=== PATIENT | female | born 1955 | race Caucasian/White ===

== ENCOUNTER → 2017-01-22 | Outpatient (CLI) | payer OTHER ==
[~2017-01-22] MED LIST: ACHD5005 PO; ALBU2.5V4 IH; ALBU8.5H2 IH; ASPI-892 PO; ASPI-983 PO; Amlodipine Besylate PO; CHOL4PAC2 PO; ESTR1PAT31 TD; ESTR1TAB24 PO; ESTR42.52 VG; HCTZ12.5T PO; HYDR-3454 PO; HYDR-3583 PO; HYDR25CA PO; IBP600T1 PO; LOVA20TA2 PO; METO-333 PO; METO25TA6 PO; NAPR-243 PO; NAPR220C11 PO; POTA10CA43 PO; POTA20TA15 PO; RANI150C11 PO; RT-ALBUINH IH; TIOT18CA2 IH; TIOT4MIS2 IH
--- NOTE | 2017-01-22 13:51 | Diagnostic Imaging Report ---
PROCEDURE: Lung cancer screening CT chest without contrast. TECHNIQUE: Multiple contiguous axial images were obtained through the chest without the use of intravenous contrast. This is performed with a low-dose protocol. INDICATION: Currently asymptomatic patient with 46 pack years history of smoking. Comparison: None. Findings: There is an irregular mixed density nodule measuring 1 cm seen along the lateral aspect of the right major fissure, axial image 23. Etiology is uncertain but the morphology of this lesion is in favor of scarring. There is a 5 mm linear nodule along the lateral aspect of the left lower lobe, axial image 38. This is also favored to be a scar. There is no significant consolidation or other nodules seen. The mediastinum demonstrate no mass or significantly enlarged lymph nodes. The heart size is normal. The thoracic aorta is ectatic. No mediastinal lymphadenopathy. No axillary lymphadenopathy. Sections of the upper abdomen demonstrate diffuse fatty infiltration in the liver. The osseous structures appear grossly unremarkable. IMPRESSION: 1. Mixed density 1 cm nodule along the lateral aspect of the right major fissure at the level of the juan j and lateral left lung base 5 mm nodule are favored to be related to scarring. Followup study in 3 months is recommended to reevaluate. 2. Hepatic steatosis. Lung Rads Category 3. Likely benign. Recommendations: 3 month followup low-dose CT scan. Dictated by: Dictated on workstation # [id number]
== END ==
LOC: RAD 13:13
PROVIDERS: ATTEND Family Medicine
DX: Z12.2 Encounter for screening for malignant neoplasm of respiratory organs (principal); F17.210 Nicotine dependence, cigarettes, uncomplicated

== ENCOUNTER → 2017-05-05 | Outpatient (CLI) | payer MEDICAID ==
[2017-05-05 10:44] LABS: BASOPHILS # (AUTO) 0.1 10^3/uL (0.0-0.1); BASOPHILS % (AUTO) 1 % (0-10); EOSINOPHILS # (AUTO) 0.2 10^3/uL (0.0-0.3); EOSINOPHILS % (AUTO) 2 % (0-10); LYMPHOCYTES # (AUTO) 1.8 X 10^3 (1.0-4.0); LYMPHOCYTES % (AUTO) 28 % (12-44); MEAN CORPUSCULAR HEMOGLOBIN 33 PG (25-34); MEAN CORPUSCULAR HGB CONC 34 G/DL (32-36); MEAN CORPUSCULAR VOLUME 97 FL (80-99); MEAN PLATELET VOLUME 10.4 FL (7.4-10.4); MONOCYTES # (AUTO) 0.5 X 10^3 (0.0-1.0); MONOCYTES % (AUTO) 8 % (0-12); NEUTROPHILS # (AUTO) 3.9 X 10^3 (1.8-7.8); NEUTROPHILS % (AUTO) 61 % (42-75); PLATELET COUNT 196 10^3/uL (130-400); RED BLOOD COUNT 4.52 10^6/uL (4.35-5.85); RED CELL DISTRIBUTION WIDTH 12.7 % (10.0-14.5); WHITE BLOOD COUNT 6.4 10^3/uL (4.3-11.0)
[2017-05-05 11:15] LABS: ALANINE AMINOTRANSFERASE 52 U/L (0-55); ALBUMIN 4.1 GM/DL (3.2-4.5); ANION GAP 9 MMOL/L (5-14); ASPARTATE AMINO TRANSFERASE 38 U/L (5-34); BILIRUBIN,TOTAL 0.5 MG/DL (0.1-1.0); BLOOD UREA NITROGEN 8 MG/DL (7-18); BUN/CREATININE RATIO 12; CALCIUM 8.7 MG/DL (8.5-10.1); CARBON DIOXIDE 24 MMOL/L (21-32); CHLORIDE 108 MMOL/L (98-107); CHOLESTEROL 164 MG/DL (< 200); CREATININE SERUM 0.65 MG/DL (0.60-1.30); DIRECT LDL 101 MG/DL (1-129); GFR ESTIMATED > 60; GLUCOSE 116 MG/DL (70-105); MAGNESIUM 2.2 MG/DL (1.8-2.4); POTASSIUM 4.2 MMOL/L (3.6-5.0); SODIUM 141 MMOL/L (135-145); TOTAL PROTEIN 6.8 GM/DL (6.4-8.2); TRIGLYCERIDES 133 MG/DL (<150); VLDL CHOLESTEROL 27 MG/DL (5-40)
[2017-05-05 11:35] LABS: THYROID STIMULATING HORMONE 1.19 UIU/ML (0.35-4.94)
== END ==
LOC: LAB 10:23
PROVIDERS: ATTEND Internal Medicine Cardiovascular Disease
DX: J43.8 Other emphysema (principal); I10 Essential (primary) hypertension; E78.4 Other hyperlipidemia; Z72.0 Tobacco use
CPT/HCPCS: 36415; 80053; 80061; 83735; 84443; 85025

== ENCOUNTER → 2017-06-02 | Outpatient (CLI) | payer MEDICAID ==
--- NOTE | 2017-06-02 14:56 | Diagnostic Imaging Report ---
PROCEDURE: CT chest without contrast. TECHNIQUE: Multiple contiguous axial images were obtained through the chest without the use of intravenous contrast. INDICATION: Followup nodule. COMPARISON: 01/22/2017. FINDINGS: Mixed density nodule along the lateral aspect of the right lung has completely resolved. There is also resolution of the elongated nodular density along the lateral aspect of the left lung base. This is suggestive of resolved atelectasis or pneumonitis. At this point, there is no significant consolidation, mass or suspicious nodule seen. No pleural or pericardial effusion. 1 cm pretracheal lymph node is seen. No significantly enlarged axillary lymph nodes are noted. There is suggestion of diffuse fatty infiltration of the liver. Osseous structures demonstrate mild degenerative changes. IMPRESSION: The previously seen nodular densities in the lateral right perihilar lesion and left lung base are resolved suggestive of benign etiology. No suspicious nodule or mass is seen. Annual screening low-dose CT chest is recommended. 2A - Benign appearance or behavior. Solid nodule(s): <6mm OR new <4mm. Continue annual screening with LDCT in 12 months. Dictated by: Dictated on workstation # [id number]
== END ==
LOC: RAD 13:44
PROVIDERS: ATTEND Family Medicine
DX: Z72.0 Tobacco use (principal)
CPT/HCPCS: 71250

== ENCOUNTER → 2018-05-14 | Outpatient (CLI) | payer MEDICARE, MEDICAID ==
--- NOTE | 2018-05-14 14:10 | Diagnostic Imaging Report ---
INDICATION: History of smoking. COMPARISON: 06/02/2017. TECHNIQUE: Routine noncontrast low dose CT of the chest was performed for screening purposes. FINDINGS: No suspicious pulmonary nodules or masses are identified. There is no focal consolidation, pleural effusion, nor pneumothorax. Evaluation of cardiomediastinal structures demonstrates normal heart size. There is mild calcified aortic and coronary atherosclerosis. No pathologically enlarged or morphologically abnormal adenopathy is seen within the mediastinum, parvin, nor axilla. Lung windows show no acute abnormalities. No lytic or blastic bony lesions are seen. There is mild multilevel degenerative change throughout the thoracic spine. Included portions of the upper abdomen show a hypodense appearance of hepatic parenchyma consistent with underlying hepatic steatosis. IMPRESSION: 1. No suspicious pulmonary nodules or masses. Continued followup with annual low-dose CT chest is recommended. 2. Mild calcified aortic and coronary atherosclerosis. 3. Hepatic steatosis. LUNG RADS CATEGORY: 1. MODIFIERS: None. OTHER SIGNIFICANT FINDINGS: As described above. Dictated by: Dictated on workstation # [id number]
== END ==
LOC: RAD 13:10
PROVIDERS: ATTEND Nurse Practitioner Family
DX: J44.9 Chronic obstructive pulmonary disease, unspecified (principal); I70.0 Atherosclerosis of aorta; I25.10 Atherosclerotic heart disease of native coronary artery without angina pectoris; F17.210 Nicotine dependence, cigarettes, uncomplicated; K76.0 Fatty (change of) liver, not elsewhere classified

== ENCOUNTER → 2018-09-29 | Outpatient (CLI) | payer MEDICARE, MEDICAID ==
[~2018-09-29] MED LIST changes: -ACHD5005 PO; -ALBU2.5V4 IH; -ALBU8.5H2 IH; -ASPI-892 PO; -ASPI-983 PO; -Amlodipine Besylate PO; +CATHETER FLUSH 10 ML SYR IV PRN; -CHOL4PAC2 PO; -ESTR1PAT31 TD; -ESTR1TAB24 PO; -ESTR42.52 VG; -HCTZ12.5T PO; -HYDR-3454 PO; -HYDR-3583 PO; -HYDR25CA PO; -IBP600T1 PO; -LOVA20TA2 PO; -METO-333 PO; -METO25TA6 PO; -NAPR-243 PO; -NAPR220C11 PO; -POTA10CA43 PO; -POTA20TA15 PO; -RANI150C11 PO; +REGADENOSON 0.4 MG/5 ML SYR (LEXISCAN) IV ONE; -RT-ALBUINH IH; -TIOT18CA2 IH; -TIOT4MIS2 IH
[2018-09-29 10:58] LABS: ALANINE AMINOTRANSFERASE 46 U/L (0-55); ALBUMIN 4.3 GM/DL (3.2-4.5); ALKALINE PHOSPHATASE 79 U/L (40-136); BILIRUBIN,TOTAL 0.4 MG/DL (0.1-1.0); BUN/CREATININE RATIO 11; CALCIUM 9.3 MG/DL (8.5-10.1); CARBON DIOXIDE 23 MMOL/L (21-32); CHLORIDE 104 MMOL/L (98-107); CHOLESTEROL 164 MG/DL (< 200); CREATININE SERUM 0.72 MG/DL (0.60-1.30); GFR ESTIMATED > 60; GLUCOSE 106 MG/DL (70-105); HDL CHOLESTEROL 47 MG/DL (40-60); POTASSIUM 4.3 MMOL/L (3.6-5.0); SODIUM 140 MMOL/L (135-145); TOTAL PROTEIN 6.8 GM/DL (6.4-8.2); TRIGLYCERIDES 144 MG/DL (<150); VLDL CHOLESTEROL 29 MG/DL (5-40)
[2018-09-29 12:32] VITALS: BP 165/77
[2018-09-29 12:34] VITALS: BP 155/79
== END ==
LOC: CARD 10:23
PROVIDERS: ATTEND Nurse Practitioner Family
DX: I10 Essential (primary) hypertension (principal); R06.09 Other forms of dyspnea; E78.5 Hyperlipidemia, unspecified; R07.89 Other chest pain
CPT/HCPCS: 36415; 78452; 80053; 80061; 93017

== ENCOUNTER → 2019-02-05 | Outpatient (CLI) | payer MEDICARE, MEDICAID ==
[~2019-02-05] MED LIST changes: +ACHD5005 PO; +ALBU2.5V4 IH; +ALBU8.5H2 IH; +ASPI-892 PO; +ASPI-983 PO; +Amlodipine Besylate PO; -CATHETER FLUSH 10 ML SYR IV PRN; +CHOL4PAC2 PO; +ESTR1PAT31 TD; +ESTR1TAB24 PO; +ESTR42.52 VG; +HCTZ12.5T PO; +HYDR-3454 PO; +HYDR-3583 PO; +HYDR25CA PO; +IBP600T1 PO; +LOVA20TA2 PO; +METO-333 PO; +METO25TA6 PO; +NAPR-243 PO; +NAPR220C11 PO; +POTA10CA43 PO; +POTA20TA15 PO; +RANI150C11 PO; -REGADENOSON 0.4 MG/5 ML SYR (LEXISCAN) IV ONE; +RT-ALBUINH IH; +TIOT18CA2 IH; +TIOT4MIS2 IH
== END ==
LOC: RAD 12:28
PROVIDERS: ATTEND Nurse Practitioner Primary Care
DX: Z12.31 Encounter for screening mammogram for malignant neoplasm of breast (principal)
CPT/HCPCS: 77067

== ENCOUNTER 2019-03-03 10:40 | Outpatient (CLI) | payer MEDICARE, MEDICAID ==
[~2019-03-03] VITALS: Ht 160 cm; Wt 69.6 kg
[~2019-03-03 10:40] MED LIST changes: +FLUT1AER IH; +LISI-552 PO; +LOVA40TA2 PO
== END 2019-03-03 11:11 | disposition home or self-care (01) ==
LOC: PREOP 10:40
PROVIDERS: ATTEND Surgery
DX: Z01.818 Encounter for other preprocedural examination (principal)

== ENCOUNTER 2019-03-09 08:31 | Day surgery (SDC) | payer MEDICARE, MEDICAID ==
[~2019-03-09] VITALS: Ht 160 cm; Wt 69.6 kg
[2019-03-09] VITALS (7 sets, daily range): BP systolic 126–175; BP diastolic 64–88
[2019-03-09] MEDS ORDERED: LACTATED RINGERS 1,000 ML IV ONE (08:33)
[2019-03-09] MEDS ORDERED: LACTATED RINGERS 1,000 ML IV STA (08:34)
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
--- OUTSIDE RECORDS SUMMARY | 2019-03-09 08:37 | XMS REPORT ---
Author Author FELISHA ROGERS Organization [employer] Address Unknown Phone Unavailable Care Team Providers Care Psychology Clinician Name Role Phone FELISHA ROGERS CP Unavailable Allergies No Known Allergies Problems Problem Type Condition Code Onset Dates Condition Status Problem Low back pain M54.5 Active Problem Chronic obstructive pulmonary disease, unspecified COPD type J44.9 Active Problem Prediabetes R73.09 Active Problem Hepatic steatosis K76.0 Active Problem Other chest pain R07.89 Active Problem Essential hypertension I10 Active Problem Pure hypercholesterolemia E78.0 Active Medications Medication Code System Code Instructions Start Date End Date Status Dosage Lovastatin [facility] [address]-38 20 MG Orally Once a day 2 tablets with a meal Proventil HFA [facility] [address]-05 108 (90 Base) MCG/ACT Inhalation every 4 hrs 2 puffs as needed Metoprolol Tartrate [facility] [address]-43 25 MG Orally Twice a day 1 tablet Aspir-81 [facility] [address]-89 81 MG Orally Once a day at HS 1 tablet Albuterol Sulfate [facility] [address]-76 (2.5 MG/3ML) 0.083% Inhalation every 4-6 hours as needed 3 ml Spiriva Respimat [facility] [address]-53 2.5 MCG/ACT Inhalation Once a day 2 puffs Results No Known Results Summary Purpose [employer] Submission
--- OUTSIDE RECORDS SUMMARY | 2019-03-09 08:37 | XMS REPORT ---
Author Author KYEMACEY CARLSON [facility] Address [address] [place] [address] Care Team Providers Care Casing Grader Name Role Phone MACEY FISHMAN Unavailable PROBLEMS Type Condition ICD9-CM Code JMN91-AD Code Onset Dates Condition Status SNOMED Code Problem Other chest pain R07.89 Active 84837811 Problem Essential hypertension I10 Active 95740016 Problem Hepatic steatosis K76.0 Active 055037345 Problem Bilateral carotid artery stenosis I65.23 Active 74498754 Problem Lung nodule R91.1 Active 378039514 Problem Tobacco use Z72.0 Active 078057244 Problem Pure hypercholesterolemia E78.0 Active 071418719 Problem Chronic obstructive pulmonary disease, unspecified COPD type J44.9 Active 47172457 Problem Prediabetes R73.09 Active 263600533 Problem Low back pain M54.5 Active 013685866 ALLERGIES Substance Reaction Event Type Date Status Prozac Unknown Drug Allergy Jul, Active Hydrochlorothiazide Syncope/collapse/weakness/hypkalemia Drug Allergy Jul, Active Codeine Unknown Drug Allergy Jul, Active ENCOUNTERS Encounter Location Date Diagnosis [place] [id number] [address] Jul, Bilateral carotid artery stenosis I65.23 ; Essential hypertension I10 and Tobacco use Z72.0 [facility] [id number] [address] May, Lung nodule R91.1 [facility] [id number] [place] [address] Apr, Tobacco use Z72.0 [facility] [address] [address] Jan, Tobacco use Z72.0 [place] [address], [place] [address] 07 Jan, 2017 Colon cancer screening Z12.11 [facility] [id number] [place] [address] 05 Jan, 2017 Chronic obstructive pulmonary disease, unspecified COPD type J44.9 [facility] [id number] [place] [address] 02 Jan, 2017 Chronic obstructive pulmonary disease, unspecified COPD type J44.9 ; Prediabetes R73.09 ; Pure hypercholesterolemia E78.0 ; Tobacco use Z72.0 ; Colon cancer screening Z12.11 ; Essential hypertension I10 and Encounter for immunization Z23 [facility] [id number] [place] [address] December, [facility] [id number] [place] [address] Mar, [facility] [id number] [place] [address] Feb, Gastroesophageal reflux disease, esophagitis presence not specified K21.9 [facility] [id number] [place] [address] Feb, [facility] [id number] [place] [address] Feb, [facility] [id number] [place] [address] Feb, [facility] [id number] [place] [address] Jan, Low back pain M54.5 [facility] [id number] [place] [address] Jan, Prediabetes R73.09 ; Essential hypertension I10 and Low vitamin D level E55.9 [facility] [id number] [place] [address] Jan, [facility] [id number] [place] [address] Jan, Low back pain M54.5 [facility] [id number] [place] [address] December, Essential hypertension I10 ; Chronic obstructive pulmonary disease, unspecified COPD type J44.9 ; Urge incontinence N39.41 ; Hepatic steatosis K76.0 ; Low back pain M54.5 ; Pure hypercholesterolemia E78.0 and Stool incontinence R15.9 [facility] [id number] [place] [address] December, Low back pain M54.5 [facility] [id number] [place] [address] December, Low back pain M54.5 [facility] [id number] [place] [address] December, Low back pain M54.5 [facility] [id number] [place] [address] December, Low back pain M54.5 [facility] [id number] [place] [address] December, Low back pain M54.5 [facility] [id number] [place] [address] Nov, Low back pain M54.5 [facility] [id number] [place] [address] Nov, Low back pain M54.5 [facility] [id number] [place] [address] Nov, [facility] [id number] [place] [address] Nov, Low back pain M54.5 [facility] [id number] [place] [address] Nov, [facility] [id number] [place] [address] Nov, Low back pain M54.5 [facility] [id number] [place] [address] Nov, Low back pain M54.5 [facility] [id number] [place] [address] Nov, [facility] [id number] [place] [address] Oct, [facility] [id number] [place] [address] Oct, Low back pain M54.5 [facility] [id number] [place] [address] Oct, Low vitamin D level E55.9 [facility] [id number] [place] [address] Oct, Low back pain M54.5 [facility] [id number] [place] [address] Oct, [facility] [id number] [place] [address] Oct, Left leg weakness M62.81 ; Memory loss R41.3 ; Other abnormalities of gait and mobility R26.89 and Vision loss H54.7 [facility] [id number] [place] [address] Oct, [facility] [id number] [place] [address] Oct, Elevated ALT measurement R74.0 [facility] [id number] [place] [address] Oct, Low back pain M54.5 [facility] [id number] [place] [address] Oct, Essential hypertension I10 [facility] [address] [address] 14 Oct, 2015 [facility] [id number] [place] [address] 14 Oct, 2015 Essential hypertension I10 [facility] [id number] [place] [address] 08 Oct, 2015 Low back pain M54.5 ; Muscle cramping R25.2 ; Chronic obstructive pulmonary disease, unspecified COPD type J44.9 and Left hip pain M25.552 [facility] [id number] [place] [address] Jul, [facility] [id number] [place] [address] Jul, Sciatica, left M54.32 ; Absent pedal pulses R09.89 and Chronic obstructive pulmonary disease, unspecified COPD type J44.9 [facility] [id number] [place] [address] Feb, [facility] [id number] [place] [address] Feb, COPD (chronic obstructive pulmonary disease) 496 ; Hypertension 401.9 and Nondependent tobacco use disorder 305.1 [facility] [address] [address] Jan, [facility] [id number] [place] [address] Nov, [facility] [id number] [place] [address] Nov, [facility] [id number] [place] [address] Jul, [facility] [address], [place] [address] Jul, [facility] [id number] [place] [address] Jun, [facility] [place] [facility] [address] [id number] [place] [address] Jun, [facility] [place] [facility] [address] [id number] [place] [address] May, [facility] [place] [facility] [address] [id number] [place] [address] 17 May, 2014 [facility] [place] [facility] [address] [id number] [place] [address] 16 May, 2014 [facility] [place] [facility] [address] [id number] [place] [address] 16 May, 2014 [facility] [place] [facility] [address] [id number] [place] [address] 14 May, 2014 [facility] [place] [facility] [address] [id number] [place] [address] 14 May, 2014 [facility] [place] [facility] [address] [id number] [place] [address] 10 Apr, 2013 [facility] [place] [facility] [address] [id number] [place] [address] 10 Apr, 2013 [facility] [place] [facility] [address] [id number] [place] [address] 03 Apr, 2013 [facility] [place] [facility] [address] [id number] [address] 03 Apr, 2013 [facility] [place] [facility] [address] [id number] [address] 02 Apr, 2013 [facility] [place] [facility] [address] [id number] [place] [address] 02 Apr, 2013 [facility] [place] [facility] [address] [id number] [place] [address] Oct, [facility] [place] [facility] [address] [id number] [place] [address] Oct, [facility] [place] [facility] [id number] [address] Oct, [facility] [address], [place] [address] Aug, [facility] [address], [place] [address] Jul, [facility] [address], [place] [address] Jul, [facility] [id number] [place] [address] Jun, [facility] [id number] [place] [address] Jun, [facility] [id number] [place] [address] Jun, [facility] [address], [place] [address] Jun, IMMUNIZATIONS Vaccine Route Administration Date Status FLU Vaccine (History) Unknown Jul 16, 2017 Administered SOCIAL HISTORY Never Assessed REASON FOR VISIT Dannie Webb f/u--tcuppettRN, -s/p left endarterectomy PLAN OF CARE Activity Details Follow Up 3 Months Reason:HTN VITAL SIGNS Height 63 in 2017-07-16 Weight 153.0 lbs 2017-07-16 Temperature 98.1 degrees Fahrenheit 2017-07-16 Heart Rate 76 bpm 2017-07-16 Respiratory Rate 20 2017-07-16 BMI 27.10 kg/m2 2017-07-16 Blood pressure systolic 150 mmHg 2017-07-16 Blood pressure diastolic 78 mmHg 2017-07-16 MEDICATIONS Medication Instructions Dosage Frequency Start Date End Date Duration Status Breo Ellipta 100-25 MCG/INH Inhalation Once a day 1 puff 24h Feb, 90 days Active Plavix 75 MG Orally Once a day 1 tablet 24h Active Lovastatin 20 MG Orally Once a day 2 tablets with a meal 24h Active Proventil HFA 108 (90 Base) MCG/ACT Inhalation every 4 hrs 2 puffs as needed 4h Active Aleve 220 MG Orally every 12 hrs 1 tablet with food or milk as needed 12h Active Albuterol Sulfate (2.5 MG/3ML) 0.083% Inhalation every 4-6 hours as needed 3 ml Active Spiriva Respimat 2.5 MCG/ACT Inhalation Once a day 2 puffs 24h 90 days Active Vitamin D 1000 UNIT Orally Once a day 1 tablet 24h Active Multivitamins Orally Once a day 1 tablet 24h Active Aspir-81 81 MG Orally Once a day at HS 1 tablet Active Metoprolol Tartrate 25 MG Orally Twice a day 1 tablet 12h Active RESULTS No Results PROCEDURES No Known procedures [...] for surgery only Hospitalization History Chest Pain--[facility] 02/18/16 Hospitalization History [facility]- Left endarterectomy 06/2017
--- OUTSIDE RECORDS SUMMARY | 2019-03-09 08:37 | XMS REPORT ---
Author Author MILE SAUER [facility] eClinicalWorks Address Unknown Phone Unavailable Care Team Providers Care Door Machine Operator Name Role Phone MILE SAUER CP Unavailable Allergies No Known Allergies Problems Problem Type Condition Code Onset Dates Condition Status Problem Chronic obstructive pulmonary disease, unspecified COPD type J44.9 Active Problem Essential hypertension I10 Active Problem Low back pain M54.5 Active Problem Other chest pain R07.89 Active Assessment Low back pain M54.5 Active Problem Pure hypercholesterolemia E78.0 Active Problem Hepatic steatosis K76.0 Active Medications No Known Medications Procedures Procedure Coding System Code Date THERAPEUTIC EXERCISES CPT-4 74662 November 08, 2015 Results No Known Results Summary Purpose eClinicalWorks Submission
--- OUTSIDE RECORDS SUMMARY | 2019-03-09 08:37 | XMS REPORT ---
Author Author KYEMACEY [facility] Address [address] [place] [address] Care Team Providers Care Licensed Prosthetist/Orthotist Name Role Phone MACEY FISHMAN Unavailable PROBLEMS Type Condition ICD9-CM Code LSV51-TF Code Onset Dates Condition Status SNOMED Code Problem Other chest pain R07.89 Active 54253824 Problem Essential hypertension I10 Active 71253090 Problem Hepatic steatosis K76.0 Active 787760287 Problem Bilateral carotid artery stenosis I65.23 Active 30021326 Problem Lung nodule R91.1 Active 155066635 Problem Tobacco use Z72.0 Active 933739025 Problem Pure hypercholesterolemia E78.0 Active 522739689 Problem Chronic obstructive pulmonary disease, unspecified COPD type J44.9 Active 40584738 Problem Prediabetes R73.09 Active 080596552 Problem Low back pain M54.5 Active 095007502 ALLERGIES No Information ENCOUNTERS Encounter Location Date Diagnosis [facility] [id number] [place] [address] 10 May, 2018 Essential hypertension I10 ; Hepatic steatosis K76.0 ; Prediabetes R73.09 and Pure hypercholesterolemia E78.00 [facility] [id number] [place] [address] 08 May, 2018 Essential hypertension I10 ; Hepatic steatosis K76.0 ; Prediabetes R73.09 and Pure hypercholesterolemia E78.00 [facility] [id number] [place] [address] 28 Apr, 2018 Essential hypertension I10 ; Tobacco use Z72.0 ; Hip pain, right M25.551 and Chronic obstructive pulmonary disease, unspecified COPD type J44.9 [facility] [address] [address] 06 Jul, 2017 Bilateral carotid artery stenosis I65.23 ; Essential hypertension I10 and Tobacco use Z72.0 [place] [id number] [place] [address] May, Lung nodule R91.1 [place] [id number] [place] [address] Apr, Tobacco use Z72.0 [place] [address] [address] Jan, Tobacco use Z72.0 [place] [address] [address] Jan, Colon cancer screening Z12.11 [place] [address] [address] Jan, Chronic obstructive pulmonary disease, unspecified COPD type J44.9 [place] [address] [address] Jan, Chronic obstructive pulmonary disease, unspecified COPD type J44.9 ; Prediabetes R73.09 ; Pure hypercholesterolemia E78.0 ; Tobacco use Z72.0 ; Colon cancer screening Z12.11 ; Essential hypertension I10 and Encounter for immunization Z23 [place] [id number] [place] [address] December, [place] [id number] [place] [address] Mar, [place] [address] [address] Feb, Gastroesophageal reflux disease, esophagitis presence not specified K21.9 [place] [address] [address] Feb, [place] [address] [address] Feb, [place] [address] [address] Feb, [facility] [id number] [place] [address] Jan, Low back pain M54.5 [facility] [id number] [place] [address] Jan, Prediabetes R73.09 ; Essential hypertension I10 and Low vitamin D level E55.9 [facility] [address] [address] Jan, [facility] [id number] [place] [address] Jan, Low back pain M54.5 [facility] [address] [address] December, Essential hypertension I10 ; Chronic obstructive pulmonary disease, unspecified COPD type J44.9 ; Urge incontinence N39.41 ; Hepatic steatosis K76.0 ; Low back pain M54.5 ; Pure hypercholesterolemia E78.0 and Stool incontinence R15.9 [facility] [id number] [place] [address] December, Low back pain M54.5 [facility] [id number] [place] [address] December, Low back pain M54.5 [facility] [id number] [place] [address] December, Low back pain M54.5 [facility] [id number] [place] [address] December, Low back pain M54.5 [facility] [address] [address] December, Low back pain M54.5 [facility] [id number] [place] [address] Nov, Low back pain M54.5 [facility] [address] [place] [address] Nov, Low back pain M54.5 [facility] [id number] [place] [address] Nov, [facility] [id number] [place] [address] Nov, Low back pain M54.5 [facility] [id number] [place] [address] Nov, [facility] [id number] [place] [address] Nov, Low back pain M54.5 [facility] [id number] [place] [address] Nov, Low back pain M54.5 [facility] [id number] [place] [address] Nov, [facility] [id number] [place] [address] Oct, [facility] [id number] [place] [address] Oct, Low back pain M54.5 [facility] [id number] [place] [address] Oct, Low vitamin D level E55.9 [facility] [id number] [place] [address] Oct, Low back pain M54.5 [facility] [id number] [place] [address] Oct, [facility] [id number] [place] [address] Oct, Left leg weakness M62.81 ; Memory loss R41.3 ; Other abnormalities of gait and mobility R26.89 and Vision loss H54.7 [facility] [id number] [place] [address] Oct, [facility] [id number] [place] [address] Oct, Elevated ALT measurement R74.0 [facility] [id number] [place] [address] Oct, Low back pain M54.5 [facility] [id number] [place] [address] 18 Oct, 2015 Essential hypertension I10 [facility] [id number] [place] [address] Oct, [facility] [id number] [place] [address] Oct, Essential hypertension I10 [facility] [id number] [place] [address] Oct, Low back pain M54.5 ; Muscle cramping R25.2 ; Chronic obstructive pulmonary disease, unspecified COPD type J44.9 and Left hip pain M25.552 [facility] [id number] [place] [address] Jul, [facility] [id number] [place] [address] Jul, Sciatica, left M54.32 ; Absent pedal pulses R09.89 and Chronic obstructive pulmonary disease, unspecified COPD type J44.9 [facility] [id number] [place] [address] Feb, [facility] [id number] [place] [address] Feb, COPD (chronic obstructive pulmonary disease) 496 ; Hypertension 401.9 and Nondependent tobacco use disorder 305.1 [facility] [id number] [place] [address] Jan, [facility] [id number] [place] [address] [place] [address] 14 Nov, 2014 [facility] [place] [facility] [address] [id number] [place] [address] 13 Nov, 2014 [facility] [place] [facility] [address] [id number] [place] [address] Jul, [facility] [place] [facility] [address] [id number] [place] [address] Jul, [facility] [place] [facility] [address] [id number] [place] [address] Jun, [facility] [place] [facility] [address] [id number] [place] [address] Jun, [facility] [place] [facility] [address] [id number] [place] [address] May, [facility] [place] [facility] [address] [id number] [place] [address] 17 May, 2014 [facility] [place] [facility] [address] [id number] [place] [address] 16 May, 2014 [facility] [place] [facility] [address] [id number] [place] [address] 16 May, 2014 [facility] [place] [facility] [address] [id number] [place] [address] 14 May, 2014 [facility] [place] [facility] [address] [id number] [place] [address] 14 May, 2014 [facility] [place] [facility] [address] [id number] [address] 10 Apr, 2013 [facility] [place] [facility] [address] [id number] [place] [address] 10 Apr, 2013 [facility] [place] [facility] [address] [id number] [place] [address] 03 Apr, 2013 [facility] [place] [facility] [address] [id number] [place] [address] 03 Apr, 2013 [facility] [place] [facility] [address] [address] Apr, [facility] [address] [address] Apr, [facility] [address] [address] Oct, [facility] [address] [place] [address] Oct, [facility] [address] [address] Oct, [facility] [id number] [place] [address] Aug, [facility] [address] [place] [address] Jul, [facility] [id number] [place] [address] Jul, [facility] [address] [address] Jun, [facility] [address] [address] Jun, [facility] [address] [address] Jun, [facility] [address] [address] Jun, IMMUNIZATIONS No Known Immunizations SOCIAL HISTORY Never Assessed REASON FOR VISIT lab orders PLAN OF CARE VITAL SIGNS MEDICATIONS Unknown Medications RESULTS No Results PROCEDURES No Known [...] for surgery only Hospitalization History Chest Pain--Via [facility] 02/18/16 Hospitalization History [facility]- Left endarterectomy 06/2017
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
--- OUTSIDE RECORDS SUMMARY | 2019-03-09 08:37 | XMS REPORT ---
Author Author MILE SAUER [facility] eClinicalWorks Address Unknown Phone Unavailable Care Team Providers Care Pit Slagman Name Role Phone MILE SAUER Unavailable Allergies No Known Allergies Problems Problem [...] Procedures Procedure Coding System Code Date THERAPEUTIC ACTIVITIES CPT-4 11013 November 06, 2015 THERAPEUTIC EXERCISES CPT-4 82580 November 06, 2015 Results No Known Results Summary Purpose eClinicalWorks Submission
--- OUTSIDE RECORDS SUMMARY | 2019-03-09 08:37 | XMS REPORT ---
Author Author MACEY FISHMAN eClinical[employer] Address Unknown Phone Unavailable Care Team Providers Care Vat Packer Name Role Phone MACEY FISHMAN CP Unavailable Allergies, Adverse Reactions, Alerts Substance Reaction Event Type Prozac Info Not Available Drug Allergy Codeine Info Not Available Drug Allergy Problems Problem Type Condition Code Onset Dates Condition Status Assessment Other abnormalities of gait and mobility R26.89 Active Assessment Vision loss H54.7 Active Problem Chronic obstructive pulmonary disease, unspecified COPD type J44.9 Active Problem Essential hypertension I10 Active Problem Low back pain M54.5 Active Assessment Left leg weakness M62.81 Active Assessment Memory loss R41.3 Active Problem Pure hypercholesterolemia E78.0 Active Problem Hepatic steatosis K76.0 Active Medications Medication Code System Code Instructions Start Date End Date Status Dosage Proventil HFA [facility] [address]-02 108 (90 Base) MCG/ACT Inhalation every 4 hrs 2 puffs as needed Metoprolol Tartrate [facility] [address]-12 25 MG Orally Twice a day 1 tablet Lovastatin [facility] [address]-74 20 MG Orally Once a day 2 tablets with a meal Aleve [facility] [address]-05 220 MG Orally not defined Spiriva Respimat [facility] [address]-57 2.5 MCG/ACT Inhalation Once a day 2 puffs Aspir-81 [facility] [address]-13 81 MG Orally Once a day 1 tablet Advair Diskus [facility] [address]-11 250-50 MCG/DOSE Inhalation Twice a day 1 puff Procedures Procedure Coding System Code Date Office Visit, Est Pt., Level 3 CPT-4 00050 November 02, 2015 JUS PADILLA* CPT-4 54042 November 02, 2015 [facility] NOB[facility] November 02, 2015 Vital Signs Date/Time: November 02, 2015 Temperature 98.6 F Weight 155.0 lbs Height 63 in BMI 27.45 Index Blood Pressure Diastolic 80 mmHg Blood Pressure Systolic 128 mmHg Cardiac Monitoring Heart Rate 78 bpm Results Name Result Date Reference Range Unit Abnormality Flag VITAMIN B12 ----Vitamin B12 453 20151102 211-946 pg/mL FOLATE (FOLIC ACID) ----Folate (Folic Acid), Serum 14.3 [id number] >3.0 ng/mL ROUTINE VENIPUNCTURE CERULOPLASMIN ----Ceruloplasmin 30.1 20151102 19.0-39.0 mg/dL MRI : Lumbar w/o contrast VITAMIN D, 25-H ----Vitamin D, 25-Hydroxy 15.5 20151102 30.0-100.0 ng/mL L MRI : Brain w/ Contrast Summary Purpose eClinicalWorks Submission
--- OUTSIDE RECORDS SUMMARY | 2019-03-09 08:37 | XMS REPORT ---
Author Author SEBASTIÁN SHIELDS eClinicalWorks Address Unknown Phone Unavailable Care Team Providers Care Mold Unloader Name Role Phone SEBASTIÁN SHIELDS CP Unavailable Allergies, Adverse Reactions, Alerts Substance Reaction Event Type Prozac Info Not Available Drug Allergy Codeine Info Not Available Drug Allergy Problems Problem Type Condition Code Onset Dates Condition Status Assessment Gastroesophageal reflux disease, esophagitis presence not specified K21.9 Active Problem Low back pain M54.5 Active Problem Chronic obstructive pulmonary disease, unspecified COPD type J44.9 Active Problem Prediabetes R73.09 Active Problem Hepatic steatosis K76.0 Active Problem Other chest pain R07.89 Active Problem Essential hypertension I10 Active Problem Pure hypercholesterolemia E78.0 Active Medications Medication Code System Code Instructions Start Date End Date Status Dosage Aspir-81 [facility] [address]-65 81 MG Orally Once a day at HS 1 tablet Albuterol Sulfate [facility] [address]-29 (2.5 MG/3ML) 0.083% Inhalation every 4-6 hours as needed 3 ml Metoprolol Tartrate [facility] [address]-01 25 MG Orally Twice a day 1 tablet Aleve [facility] [address]-95 220 MG Orally not defined Lovastatin [facility] [address]-62 20 MG Orally Once a day 2 tablets with a meal Spiriva Respimat [facility] [address]-97 2.5 MCG/ACT Inhalation Once a day 2 puffs Breo Ellipta [facility] [address]-49 100-25 MCG/INH Inhalation Once a day February 26, 2016 1 puff Proventil HFA [facility] [address]-99 108 (90 Base) MCG/ACT Inhalation every 4 hrs 2 puffs as needed Pantoprazole Sodium [facility] [address]-01 20 mg Orally Once a day March 05, 2016 1 tablet Multivitamins [facility] [address]-73 Orally Once a day 1 tablet Procedures Procedure Coding System Code Date Office Visit, Est Pt., Level 3 CPT-4 00910 February 26, 2016 Vital Signs Date/Time: February 26, 2016 Cardiac Monitoring Heart Rate 68 bpm Weight 154.0 lbs Height 63 in BMI 27.28 Index Blood Pressure Diastolic 72 mmHg Blood Pressure Systolic 124 mmHg Results No Known Results Summary Purpose eClinicalWorks Submission
--- OUTSIDE RECORDS SUMMARY | 2019-03-09 08:38 | XMS REPORT ---
Author Author MACEY FISHMAN [facility] eClinicalWorks Address Unknown Phone Unavailable Care Team Providers Care Plating Foreman Name Role Phone MACEY FISHMAN Unavailable Allergies No Known Allergies Problems Problem Type Condition Code Onset Dates Condition Status Problem Essential hypertension I10 Active Problem Pure hypercholesterolemia E78.0 Active Problem Chronic obstructive pulmonary disease, unspecified COPD type J44.9 Active Medications No Known Medications Results No Known Results Summary Purpose eClinicalWorks Submission
--- OUTSIDE RECORDS SUMMARY | 2019-03-09 08:38 | XMS REPORT ---
Author Author MACEY FISHMAN eClinicalWorks Address Unknown Phone Unavailable Care Team Providers Care Highway Maintenance Crew Worker Name Role Phone MACEY FISHMAN CP Unavailable Allergies, Adverse Reactions, Alerts Substance Reaction Event Type Prozac Info Not Available Drug Allergy Codeine Info Not Available Drug Allergy Problems Problem Type Condition Code Onset Dates Condition Status Problem Essential hypertension I10 Active Problem Pure hypercholesterolemia E78.0 Active Problem Chronic obstructive pulmonary disease, unspecified COPD type J44.9 Active Assessment Chronic obstructive pulmonary disease, unspecified COPD type J44.9 Active Assessment Sciatica, left M54.32 Active Assessment Absent pedal pulses R09.89 Active Medications Medication Code System Code Instructions Start Date End Date Status Dosage Aspir-[address] [facility] [address]-25 81 MG Orally Once a day 1 tablet Metoprolol Tartrate [facility] [address]-03 25 MG Orally Twice a day 1 tablet Lovastatin [facility] [address]-62 20 MG Orally Once a day 2 tablets with a meal Gabapentin [facility] [address]-65 300 MG Orally Three times a day (start with one at bedtime x 7 days, then twice daily x 7 days, then 3x daily) Jul 26, 2015 1 capsule Spiriva Respimat [facility] [address]-22 2.5 MCG/ACT Inhalation Once a day 2 puffs Proventil HFA [facility] [address]-32 108 (90 Base) MCG/ACT Inhalation every 4 hrs 2 puffs as needed Procedures Procedure Coding System Code Date X-RAY EXAM OF LOWER SPINE CPT-4 02414 Jul 26, 2015 Office Visit, Est Pt., Level 3 CPT-4 07767 Jul 26, 2015 MEASURE BLOOD OXYGEN LEVEL CPT-4 24769 Jul 26, 2015 Vital Signs Date/Time: Jul 26, 2015 Cardiac Monitoring Heart Rate 70 bpm Weight 155.2 lbs Height 63 in BMI 27.49 Index Oximetry 97 % Blood Pressure Diastolic 80 mmHg Blood Pressure Systolic 132 mmHg Results No Known Results Summary Purpose eClinicalWorks Submission
--- OUTSIDE RECORDS SUMMARY | 2019-03-09 08:38 | XMS REPORT ---
Author Author MILE SAUER [facility] eClinicalWorks Address Unknown Phone Unavailable Care Team Providers Care Retread Builder Name Role Phone MILE SAUER CP Unavailable [...] Coding System Code Date THERAPEUTIC EXERCISES CPT-4 10655 October 30, 2015 PT EVALUATION CPT-4 93406 October 30, 2015 Results No Known Results Summary Purpose eClinicalWorks Submission
--- OUTSIDE RECORDS SUMMARY | 2019-03-09 08:38 | XMS REPORT ---
Author Author KYEMACEY Organization [facility] Address [address] [place] [address] Care Team Providers Care Sleep Technologist Name Role Phone MACEY FISHMAN Unavailable PROBLEMS Type Condition ICD9-CM Code JGQ12-II Code Onset Dates Condition Status SNOMED Code Problem Other chest pain R07.89 Active 28253720 Problem Essential hypertension I10 Active 05701123 Problem Hepatic steatosis K76.0 Active 995093114 Problem Bilateral carotid artery stenosis I65.23 Active 55724392 Problem Lung nodule R91.1 Active 255537624 Problem Tobacco use Z72.0 Active 835076995 Problem Pure hypercholesterolemia E78.0 Active 967089022 Problem Chronic obstructive pulmonary disease, unspecified COPD type J44.9 Active 09696044 Problem Prediabetes R73.09 Active 506374933 Problem Low back pain M54.5 Active 393659264 ALLERGIES No Information SOCIAL HISTORY Never Assessed PLAN OF CARE VITAL SIGNS MEDICATIONS Unknown Medications RESULTS Name Result Date Reference Range HEMOCCULT (IN HOUSE) 2017-01-15 RESULTS Negative Control + Lot # [id number] Exp date 08/2018 HEMOCCULT (IN HOUSE)-Additional 2017-01-15 RESULTS Negative Control + Lot # [id number] Exp Date 08/2018 PROCEDURES Procedure Date Ordered Result Body Site TEST FOR BLOOD, FECES January 15, 2017 IMMUNIZATIONS No Known Immunizations MEDICAL (GENERAL) HISTORY [...] for surgery only Hospitalization History Chest Pain--Via [facility] 02/18/16
--- OUTSIDE RECORDS SUMMARY | 2019-03-09 08:38 | XMS REPORT ---
Author Author MACEY FISHMAN eClinicalWorks Address Unknown Phone Unavailable Care Team Providers Care Accountant Certified Public Name Role Phone MACEY FISHMAN Unavailable Allergies No Known Allergies Problems Problem Type Condition Code Onset Dates Condition Status Problem Low back pain M54.5 Active Problem Chronic obstructive pulmonary disease, unspecified COPD type J44.9 Active Problem Prediabetes R73.09 Active Problem Hepatic steatosis K76.0 Active Problem Essential hypertension I10 Active Problem Pure hypercholesterolemia E78.0 Active Medications Medication Code System Code Instructions Start Date End Date Status Dosage Spiriva Respimat [facility] [address]-17 2.5 MCG/ACT Inhalation Once a day 2 puffs Breo Ellipta [facility] [address]-19 100-25 MCG/INH Inhalation Once a day February 26, 2016 1 puff Results No Known Results Summary Purpose eClinicalWorks Submission
--- OUTSIDE RECORDS SUMMARY | 2019-03-09 08:38 | XMS REPORT ---
Author Author MACEY FISHMAN [facility] eClinicalWorks Address Unknown Phone Unavailable Care Team Providers Care Saw Repairer Name Role Phone MACEY FISHMAN CP Unavailable Allergies No Known Allergies Problems Problem Type Condition Code Onset Dates Condition Status Problem Low back pain M54.5 Active Problem Chronic obstructive pulmonary disease, unspecified COPD type J44.9 Active Problem Prediabetes R73.09 Active Problem Hepatic steatosis K76.0 Active Problem Other chest pain R07.89 Active Problem Essential hypertension I10 Active Problem Pure hypercholesterolemia E78.0 Active Medications No Known Medications Results No Known Results Summary Purpose eClinicalWorks Submission
--- OUTSIDE RECORDS SUMMARY | 2019-03-09 08:38 | XMS REPORT ---
Author Author KYEMACEY CARLSON [facility] Address [address] [place] [address] Care Team Providers Care Summer Clerk Name Role Phone MACEY FISHMAN Unavailable PROBLEMS Type Condition ICD9-CM Code URY60-SX Code Onset Dates Condition Status SNOMED Code Problem Other chest pain R07.89 Active 11946691 Problem Essential hypertension I10 Active 61571253 Problem Hepatic steatosis K76.0 Active 739003208 Problem Bilateral carotid artery stenosis I65.23 Active 13030063 Problem Lung nodule R91.1 Active 156119582 Problem Tobacco use Z72.0 Active 241330163 Problem Pure hypercholesterolemia E78.0 Active 128353614 Problem Chronic obstructive pulmonary disease, unspecified COPD type J44.9 Active 37743292 Problem Prediabetes R73.09 Active 780336615 Problem Low back pain M54.5 Active 351006720 ALLERGIES Substance Reaction Event Type Date Status Prozac Unknown Drug Allergy Jan, Active Codeine Unknown Drug Allergy Jan, Active ENCOUNTERS Encounter Location Date Diagnosis [place] [id number] [place] [address] Jul, Bilateral carotid artery stenosis I65.23 ; Essential hypertension I10 and Tobacco use Z72.0 [facility] [address], [place] [address] May, Lung nodule R91.1 [facility] [address] [place] [address] Apr, Tobacco use Z72.0 [facility] [id number] [place] [address] Jan, Tobacco use Z72.0 [facility] [address] [place] [address] 07 Be, 2017 Colon cancer screening Z12.11 [facility] [address], [place] [address] 05 Jan, 2017 Chronic obstructive pulmonary disease, unspecified COPD type J44.9 [facility] [id number] [place] [address] 02 Jan, 2017 Chronic obstructive pulmonary disease, unspecified COPD type J44.9 ; Prediabetes R73.09 ; Pure hypercholesterolemia E78.0 ; Tobacco use Z72.0 ; Colon cancer screening Z12.11 ; Essential hypertension I10 and Encounter for immunization Z23 [facility] [id number] [place] [address] December, [facility] [id number] [place] [address] Mar, [facility] [id number] [place] [address] Feb, Gastroesophageal reflux disease, esophagitis presence not specified K21.9 [facility] [id number] [place] [address] Feb, [facility] [id number] [place] [address] Feb, [facility] [id number] [place] [address] Feb, [facility] [id number] [place] [address] Jan, Low back pain M54.5 [facility] [id number] [place] [address] Jan, Prediabetes R73.09 ; Essential hypertension I10 and Low vitamin D level E55.9 [facility] [address] [place] [address] Jan, [facility] [id number] [place] [address] Jan, Low back pain M54.5 [facility] [id number] [place] [address] December, Essential hypertension I10 ; Chronic obstructive pulmonary disease, unspecified COPD type J44.9 ; Urge incontinence N39.41 ; Hepatic steatosis K76.0 ; Low back pain M54.5 ; Pure hypercholesterolemia E78.0 and Stool incontinence R15.9 [facility] [address] [address] December, Low back pain M54.5 [facility] [id number] [place] [address] December, Low back pain M54.5 [facility] [id number] [place] [address] December, Low back pain M54.5 [facility] [id number] [place] [address] December, Low back pain M54.5 [facility] [id number] [place] [address] December, Low back pain M54.5 [facility] [id number] [place] [address] Nov, Low back pain M54.5 [facility] [id number] [place] [address] Nov, Low back pain M54.5 [facility] [id number] [place] [address] Nov, [facility] [id number] [place] [address] Nov, Low back pain M54.5 [facility] [id number] [place] [address] Nov, [facility] [id number] [place] [address] Nov, Low back pain M54.5 [facility] [address] [place] [address] Nov, Low back pain M54.5 [facility] [id number] [place] [address] Nov, [facility] [id number] [place] [address] Oct, [facility] [id number] [place] [address] 30 Oct, 2015 Low back pain M54.5 [facility] [id number] [place] [address] 30 Oct, 2015 Low vitamin D level E55.9 [facility] [id number] [place] [address] Oct, Low back pain M54.5 [facility] [id number] [place] [address] Oct, [facility] [id number] [place] [address] 24 Oct, 2015 Left leg weakness M62.81 ; Memory loss R41.3 ; Other abnormalities of gait and mobility R26.89 and Vision loss H54.7 [facility] [id number] [place] [address] Oct, [facility] [id number] [place] [address] Oct, Elevated ALT measurement R74.0 [facility] [id number] [place] [address] 21 Oct, 2015 Low back pain M54.5 [facility] [id number] [place] [address] 18 Oct, 2015 Essential hypertension I10 [facility] [id number] [place] [address] 14 Oct, 2015 [facility] [address], [place] [address] 14 Oct, 2015 Essential hypertension I10 [facility] [id number] [place] [address] 08 Oct, 2015 Low back pain M54.5 ; Muscle cramping R25.2 ; Chronic obstructive pulmonary disease, unspecified COPD type J44.9 and Left hip pain M25.552 [facility] [id number] [place] [address] Jul, [facility] [id number] [place] [address] Jul, Sciatica, left M54.32 ; Absent pedal pulses R09.89 and Chronic obstructive pulmonary disease, unspecified COPD type J44.9 [facility] [id number] [place] [address] Feb, [facility] [id number] [place] [address] Feb, COPD (chronic obstructive pulmonary disease) 496 ; Hypertension 401.9 and Nondependent tobacco use disorder 305.1 [facility] [id number] [place] [address] Jan, [facility] [id number] [place] [address] Nov, [facility] [id number] [place] [address] Nov, [facility] [id number] [place] [phone] Jul, [facility] [id number] [place] [address] Jul, [facility] [id number] [place] [address] Jun, [facility] [address] [place] [address] Jun, [facility] [place] [facility] [address] [id number] [place] [address] 17 May, 2014 [facility] [place] [facility] [address] [id number] [place] [address] 17 May, 2013 [facility] [place] [facility] [address] [id number] [place] [address] 16 May, 2014 [facility] [place] [facility] [address] [id number] [place] [address] 16 May, 2014 [facility] [place] [facility] [address] [id number] [place] [address] 14 May, 2014 [facility] [place] [facility] [address] [id number] [place] [address] 14 May, 2014 [facility] [place] [facility] [address] [id number] [place] [address] 10 Apr, 2013 [facility] [place] [facility] [address] [id number] [place] [address] 10 Apr, 2013 [facility] [place] [facility] [address] [id number] [place] [address] 03 Apr, 2013 [facility] [place] [facility] [address] [id number] [place] [address] 03 Apr, 2013 [facility] [place] [facility] [address] [id number] [place] [address] 02 Apr, 2013 [facility] [place] [facility] [address] [id number] [place] [address] 02 Apr, 2013 [facility] [place] [facility] [address] [id number] [place] [address] 11 Oct, 2012 [facility] [place] [facility] [address] [id number] [place] [address] 11 Oct, 2012 [facility] [place] [facility] [address] [id number] [place] [address] 07 Oct, 2012 [facility] [address] [facility] [id number] [address] Aug, [facility] [address] [place] [address] Jul, [facility] [address] [place] [address] Jul, [facility] [address] [place] [address] Jun, [facility] [address], [place] [address] Jun, [facility] [address] [place] [address] Jun, [facility] [address] [place] [address] Jun, IMMUNIZATIONS Vaccine Route Administration Date Status PPSV23 (PNEUMOVAX) IM Intramuscular January 10, 2017 Administered SOCIAL HISTORY Never Assessed REASON FOR VISIT htn/Copd--Gayla, requesting spiriva and breo from [facility] PL[facility] OF CARE Activity Details Follow Up 6 Months Reason:COPD/HTN VITAL SIGNS Height 63 in 2017-01-10 Weight 159 lbs 2017-01-10 Temperature 98.2 degrees Fahrenheit 2017-01-10 Heart Rate 90 bpm 2017-01-10 Respiratory Rate 20 2017-01-10 BMI 28.16 kg/m2 2017-01-10 Blood pressure systolic 122 mmHg 2017-01-10 Blood pressure diastolic 84 mmHg 2017-01-10 MEDICATIONS Medication Instructions Dosage Frequency Start Date End Date Duration Status Lovastatin 20 MG Orally Once a day 2 tablets with a meal 24h Active Metoprolol Tartrate 25 MG Orally Twice a day 1 tablet 12h Active Multivitamins Orally Once a day 1 tablet 24h Active Spiriva Respimat 2.5 MCG/ACT Inhalation Once a day 2 puffs 24h Active Aleve 220 MG Active Vitamin D 1000 UNIT Orally Once a day 1 tablet 24h Active Aspir-81 81 MG Orally Once a day at HS 1 tablet Active Albuterol Sulfate (2.5 MG/3ML) 0.083% Inhalation every 4-6 hours as needed 3 ml Active Breo Ellipta 100-25 MCG/INH Inhalation Once a day 1 puff 24h 18 Feb, 2016 Active RESULTS Name Result Date Reference Range CT Scan : Chest, low dose (Screening) 2017-01-22 PROCEDURES Procedure Date Ordered Result Body Site PPSV23 (PNEUMOVAX) January 10, 2017 SINGLE IMMUNIZATION ADMIN January 10, 2017 INSTRUCTIONS MEDICATIONS ADMINISTERED No Known Medications MEDICAL [...] for surgery only Hospitalization History Chest Pain--[facility] 02/18/16 Hospitalization History [facility]- Left endarterectomy 06/2017
--- OUTSIDE RECORDS SUMMARY | 2019-03-09 08:40 | XMS REPORT | Continuity of Care Document ---
Author Organization Unknown Address Unknown Phone Unavailable Allergies Active Description Code Type Severity Reaction Onset Reported/Identified Relationship to Patient Clinical Status Yes codeine Drug Allergy N/A N/A 07/09/2012 Yes codeine Drug Allergy 07/09/2012 Yes Prozac 20 mg capsule Drug Allergy N/A N/A 08/13/2012 Yes Prozac 20 mg capsule Drug Allergy 08/13/2012 Yes codeine [id number] Drug Allergy Unknown HIVES 02/18/2016 Yes codeine [id number] Drug Allergy Mild HIVES 03/03/2019 Medications There is no data. Problems Date Dx Coded Attending Type Code Diagnosis Diagnosed By 07/09/2012 SEBASTIÁN SHIELDS DO 311 DEPRESSION SEASONAL PATTERN 07/09/2012 SEBASTIÁN SHIELDS DO 618.03 URETHROCELE 07/09/2012 SEBASTIÁN SHIELDS DO V72.31 TISSUE SPECIALIST EXAM, ROUTINE 07/09/2012 311 DEPRESSION SEASONAL PATTERN 07/09/2012 618.03 URETHROCELE 07/09/2012 V72.31 TISSUE SPECIALIST EXAM, ROUTINE 07/09/2012 311 DEPRESSION SEASONAL PATTERN 07/09/2012 618.03 URETHROCELE 07/09/2012 V72.31 TISSUE SPECIALIST EXAM, ROUTINE 07/09/2012 311 DEPRESSION SEASONAL PATTERN 07/09/2012 618.03 Urethrocele 07/09/2012 V72.31 Garment Looper Exam, Routine 07/09/2012 SEBASTIÁN SHIELDS DO 311 DEPRESSION SEASONAL PATTERN 07/09/2012 SEBASTIÁN SHIELDS DO 618.03 Urethrocele 07/09/2012 SEBASTIÁN SHIELDS DO V72.31 Garment Looper Exam, Routine 07/09/2012 NAYELY GARCIA MD 311 DEPRESSION SEASONAL PATTERN 07/09/2012 NAYELY GARCIA MD 618.03 Urethrocele 07/09/2012 NAYELY GARCIA MD V72.31 Garment Looper Exam, Routine 07/09/2012 MACEY FISHMAN MD 311 DEPRESSION SEASONAL PATTERN 07/09/2012 MACEY FISHMAN MD 618.03 Urethrocele 07/09/2012 MACEY FISHMAN MD V72.31 Garment Looper Exam, Routine 07/09/2012 KUNALL DIABETIC EDUCATORRICHARD Capone 311 DEPRESSION SEASONAL PATTERN 07/09/2012 MADL DIABETIC EDUCATORRICHARD Capone L 618.03 Urethrocele 07/09/2012 KUNALL DIABETIC EDUCATORRICHARD Capone V72.31 Garment Looper Exam, Routine 07/09/2012 MACEY FISHMAN MD N 311 DEPRESSION SEASONAL PATTERN 07/09/2012 MACEY FISHMAN MD 618.03 Urethrocele 07/09/2012 MACEY FISHMAN MD V72.31 Garment Looper Exam, Routine 07/09/2012 MACEY FISHMAN MD N 311 DEPRESSION SEASONAL PATTERN 07/09/2012 MACEY FISHMAN MD 618.03 Urethrocele 07/09/2012 MACEY FISHMAN MD V72.31 Garment Looper Exam, Routine 07/09/2012 MACEY FISHMAN MD N 311 DEPRESSION SEASONAL PATTERN 07/09/2012 MACEY FISHMAN MD 618.03 Urethrocele 07/09/2012 MACEY FISHMAN MD V72.31 Garment Looper Exam, Routine 07/09/2012 MACEY FISHMAN MD N 311 DEPRESSION SEASONAL PATTERN 07/09/2012 MACEY FISHMAN MD 618.03 Urethrocele 07/09/2012 MACEY FISHMAN MD V72.31 Garment Looper Exam, Routine 07/09/2012 MACEY FISHMAN MD N 311 DEPRESSION SEASONAL PATTERN 07/09/2012 MACEY FISHMAN MD 618.03 Urethrocele 07/09/2012 MACEY FISHMAN MD V72.31 Garment Looper Exam, Routine 07/09/2012 SEBASTIÁN SHIELDS DO 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 08/13/2012 V70.0 ROUTINE GENERAL MEDICAL EXAMINATION AT A HEALTH CARE FACILITY 08/13/2012 SEBASTIÁN SHIELDS DO V70.0 ROUTINE GENERAL MEDICAL EXAMINATION AT A HEALTH CARE FACILITY 08/13/2012 NAYELY GARCIA MD V70.0 ROUTINE GENERAL MEDICAL EXAMINATION AT A HEALTH CARE FACILITY 08/13/2012 MACEY FISHMAN MD V70.0 ROUTINE GENERAL MEDICAL EXAMINATION AT A HEALTH CARE FACILITY 08/13/2012 RICHARD LECHUGA APRN V70.0 ROUTINE GENERAL MEDICAL EXAMINATION AT A HEALTH CARE FACILITY 08/13/2012 MACEY FISHMAN MD V70.0 ROUTINE GENERAL MEDICAL EXAMINATION AT A HEALTH CARE FACILITY 08/13/2012 MACEY FISHMAN MD V70.0 ROUTINE GENERAL MEDICAL EXAMINATION AT A HEALTH CARE FACILITY 08/13/2012 MACEY FISHMAN MD V70.0 ROUTINE GENERAL MEDICAL EXAMINATION AT A HEALTH CARE FACILITY 08/13/2012 MACEY FISHMAN MD V70.0 ROUTINE GENERAL MEDICAL EXAMINATION AT A HEALTH CARE FACILITY 08/13/2012 MACEY FISHMAN MD V70.0 ROUTINE GENERAL MEDICAL EXAMINATION AT A HEALTH CARE FACILITY 08/13/2012 SEBASTIÁN SHIELDS DO V70.0 ROUTINE GENERAL MEDICAL EXAMINATION AT A HEALTH CARE FACILITY 08/13/2012 NANCY SEGURA MD V70.0 ROUTINE GENERAL MEDICAL EXAMINATION AT A HEALTH CARE FACILITY 10/19/2012 SEBASTIÁN SHIELDS DO V76.51 SPECIAL SCREENING FOR MALIGNANT NEOPLASMS COLON 10/19/2012 NAYELY GARCIA MD V76.51 SPECIAL SCREENING FOR MALIGNANT NEOPLASMS COLON 10/19/2012 MACEY FISHMAN MD V76.51 SPECIAL SCREENING FOR MALIGNANT NEOPLASMS COLON 10/19/2012 RICHARD LECHUGA APRN V76.51 SPECIAL SCREENING FOR MALIGNANT NEOPLASMS COLON 10/19/2012 MACEY FISHMAN MD V76.51 SPECIAL SCREENING FOR MALIGNANT NEOPLASMS COLON 10/19/2012 MACEY FISHMAN MD V76.51 SPECIAL SCREENING FOR MALIGNANT NEOPLASMS COLON 10/19/2012 MACEY FISHMAN MD V76.51 SPECIAL SCREENING FOR MALIGNANT NEOPLASMS COLON 10/19/2012 MACEY FISHMAN MD V76.51 SPECIAL SCREENING FOR MALIGNANT NEOPLASMS COLON 10/19/2012 MACEY FISHMAN MD V76.51 SPECIAL SCREENING FOR MALIGNANT NEOPLASMS COLON 10/19/2012 SEBASTIÁN SHIELDS DO V76.51 SPECIAL SCREENING FOR MALIGNANT NEOPLASMS COLON 10/19/2012 NANCY SEGURA MD V76.51 SPECIAL SCREENING FOR MALIGNANT NEOPLASMS COLON 05/26/2013 JEAN PIERRE MCCAULEY DO Ot 618.01 CYSTOCELE, MIDLINE 04/13/2014 MACEY FISHMAN MD 491.21 OBSTRUCTIVE CHRONIC BRONCHITIS WITH (ACUTE) EXACERBATION 04/13/2014 ANKUSH SALES RICHARD L 491.21 CHRONIC BRONCHITIS - WITH ACUTE EXACERBATION 04/13/2014 MACEY FISHMAN MD N 491.21 CHRONIC BRONCHITIS - WITH ACUTE EXACERBATION 04/13/2014 MACEY FISHMAN MD N 491.21 CHRONIC BRONCHITIS - WITH ACUTE EXACERBATION 04/13/2014 MACEY FISHMAN MD 491.21 CHRONIC BRONCHITIS - WITH ACUTE EXACERBATION 04/13/2014 MACEY FISHMAN MD 491.21 CHRONIC BRONCHITIS - WITH ACUTE EXACERBATION 04/13/2014 MACEY FISHMAN MD 491.21 CHRONIC BRONCHITIS - WITH ACUTE EXACERBATION 04/13/2014 SEBASTIÁN SHIELDS DO 491.21 CHRONIC BRONCHITIS - WITH ACUTE EXACERBATION 04/13/2014 NANCY SEGURA MD 491.21 CHRONIC BRONCHITIS - WITH ACUTE EXACERBATION 05/24/2014 MACEY FISHMAN MD N 305.1 NONDEPENDENT TOBACCO USE DISORDER 05/24/2014 MACEY FISHMAN MD N 490 BRONCHITIS NOT SPECIFIED ACUTE OR CHRONIC 05/24/2014 MACEY FISHMAN MD N 787.91 DIARRHEA 05/24/2014 MACEY FISHMAN MD N 305.1 NONDEPENDENT TOBACCO USE DISORDER 05/24/2014 MACEY FISHMAN MD N 490 BRONCHITIS NOT SPECIFIED ACUTE OR CHRONIC 05/24/2014 MACEY FISHMAN MD N 787.91 DIARRHEA 05/24/2014 MACEY FISHMAN MD N 305.1 NONDEPENDENT TOBACCO USE DISORDER 05/24/2014 MACEY FISHMAN MD N 490 BRONCHITIS NOT SPECIFIED ACUTE OR CHRONIC 05/24/2014 MACEY FISHMAN MD N 787.91 DIARRHEA 05/24/2014 MACEY FISHMAN MD N 305.1 NONDEPENDENT TOBACCO USE DISORDER 05/24/2014 MACEY FISHMAN MD N 490 BRONCHITIS NOT SPECIFIED ACUTE OR CHRONIC 05/24/2014 MACEY FISHMAN MD 787.91 DIARRHEA 05/24/2014 MACEY FISHMAN MD 305.1 NONDEPENDENT TOBACCO USE DISORDER 05/24/2014 MACEY FISHMAN MD 490 BRONCHITIS NOT SPECIFIED ACUTE OR CHRONIC 05/24/2014 MACEY FISHMAN MD 787.91 DIARRHEA 05/24/2014 SEBASTIÁN SHIELDS DO K 305.1 NONDEPENDENT TOBACCO USE DISORDER 05/24/2014 SEBASTIÁN SHIELDS DO K 490 BRONCHITIS NOT SPECIFIED ACUTE OR CHRONIC 05/24/2014 SEBASTIÁN SHIELDS DO K 787.91 DIARRHEA 05/24/2014 NANCY SEGURA MD 305.1 NONDEPENDENT TOBACCO USE DISORDER 05/24/2014 NANCY SEGURA MD 490 BRONCHITIS NOT SPECIFIED ACUTE OR CHRONIC 05/24/2014 NANCY SEGURA MD 787.91 DIARRHEA 07/06/2014 MACEY FISHMAN MD V15.82 NICOTINE ABUSE 07/06/2014 MACEY FISHMAN MD V15.82 NICOTINE ABUSE 07/06/2014 MACEY FISHMAN MD V15.82 NICOTINE ABUSE 07/06/2014 SEBASTIÁN SHIELDS DO V15.82 NICOTINE ABUSE 07/06/2014 NANCY SEGURA MD V15.82 NICOTINE ABUSE 11/07/2014 Ot 621.2 11/07/2014 Ot 618.89 11/07/2014 Ot V72.63 11/07/2014 Ot V72.83 11/07/2014 Ot V74.8 11/07/2014 JEAN PIERRE MCCAULEY DO Ot 618.01 11/07/2014 JEAN PIERRE MCCAULEY DO Ot V72.84 11/07/2014 MACEY FISHMAN MD Ot 305.1 11/07/2014 MACEY FISHMAN MD Ot 401.9 11/07/2014 MACEY FISHMAN MD Ot 496 11/07/2014 MACEY FISHMAN MD Ot 786.09 11/07/2014 MACEY FISHMAN MD Ot 786.50 11/07/2014 MACEY FISHMAN MD Ot 305.1 11/07/2014 MACEY FISHMAN MD Ot 401.9 11/07/2014 MACEY FISHMAN MD Ot 496 11/07/2014 MACEY FISHMAN MD Ot 786.09 11/07/2014 MACEY FISHMAN MD Ot 786.50 11/09/2014 Ot 621.2 11/09/2014 Ot 618.89 11/09/2014 Ot V72.63 11/09/2014 Ot V72.83 11/09/2014 Ot V74.8 11/09/2014 JEAN PIERRE MCCAULEY DO C Ot 618.01 11/09/2014 MCCAULEY DOJEAN PIERRE C Ot V72.84 11/10/2014 MACEY FISHMAN MD 496 COPD 11/10/2014 MACEY FISHMAN MD 496 COPD 11/10/2014 SHIELDS DO, SEBASTIÁN K 496 COPD 11/10/2014 NANCY SEGURA MD 496 COPD 11/17/2014 MACEY FISHMAN MD N 401.1 HYPERTENSION, BENIGN ESSENTIAL 11/17/2014 MACEY FISHMAN MD N 782.3 EDEMA 11/17/2014 MACEY FISHMAN MD N 401.1 HYPERTENSION, BENIGN ESSENTIAL 11/17/2014 MACEY FISHMAN MD N 782.3 EDEMA 11/17/2014 SHIELDS DO, SEBASTIÁN K 401.1 HYPERTENSION, BENIGN ESSENTIAL 11/17/2014 SHIELDS DO, SEBASTIÁN K 782.3 EDEMA 11/17/2014 NANCY SEGURA MD 401.1 HYPERTENSION, BENIGN ESSENTIAL 11/17/2014 NANCY SEGURA MD 782.3 EDEMA 11/21/2014 JUSTINE MULLER Ot 276.8 HYPOPOTASSEMIA 11/21/2014 JUSTINE MULLER Ot 780.79 OTH MALAISE FATIGUE 12/02/2014 JUSTINE MULLER Ot 276.8 HYPOPOTASSEMIA 12/02/2014 JUSTINE MULLER Ot 780.50 SLEEP DISTURBANCE NOS 12/02/2014 JUSTINE MULLER Ot 780.79 OTH MALAISE FATIGUE 12/02/2014 JUSTINE MULLER Ot 785.1 PALPITATIONS 12/05/2014 BAIMA, RAYMOND L RAG BALER Ot 305.1 12/05/2014 BAIMA, RAYMOND L RAG BALER Ot 401.9 12/05/2014 BAIMA, RAYMOND L RAG BALER Ot 496 12/05/2014 BAIMA, RAYMOND L RAG BALER Ot 782.3 12/05/2014 GENEEFREN JUAREZHER Velarde RAG BALER Ot 786.09 01/05/2015 MARY SANTA, CHENCHO Lindsey Ot 305.1 01/05/2015 MARY SANTA, CHENCHO Lindsey Ot 401.9 01/05/2015 MARY SANTA, CHENCHO J Ot 496 01/05/2015 CHENCHO HERNANDEZ MD Ot 729.81 01/05/2015 CHENCHO HERNANDEZ MD Ot 786.09 01/05/2015 MARY SANTA, CHENCHO Lindsey Ot 305.1 01/05/2015 MARY SANTA, CHENCHO Lindsey Ot 401.9 01/05/2015 MARY SANTA, CHENCHO Lindsey Ot 496 01/05/2015 MARY SANTA, CHENCHO Lindsey Ot 729.81 01/05/2015 CHENCHO HERNANDEZ MD Ot 786.09 06/29/2015 Ot 621.2 06/29/2015 Ot 618.89 06/29/2015 Ot V72.63 06/29/2015 Ot V72.83 06/29/2015 Ot V74.8 06/29/2015 JEAN PIERRE MCCAULEY DO C Ot 618.01 06/29/2015 JEAN PIERRE MCCAULEY DO C Ot V72.84 06/29/2015 RAYMOND BOWERS RAG BALER Ot 305.1 06/29/2015 RAYMOND BOWERS RAG BALER Ot 401.9 06/29/2015 RAYMOND BOWERS RAG BALER Ot 496 06/29/2015 RAYMOND BOWERS RAG BALER Ot 782.3 06/29/2015 RAYMOND BOWERS RAG BALER Ot 786.09 06/29/2015 CHENCHO HERNANDEZ MD Ot 305.1 06/29/2015 CHENCHO HERNANDEZ MD Ot 401.9 06/29/2015 CHENCHO HERNANDEZ MD Ot 496 06/29/2015 CHENCHO HERNANDEZ MD Ot 729.81 06/29/2015 CHENCHO HERNANDEZ MD Ot 786.09 06/29/2015 ANA SANTA FACC, ALI FACP CCDS Ot 272.4 06/29/2015 ANA [place]ANT[place] FACC, ALI FACP CCDS Ot 305.1 06/29/2015 ANA [place]ANT[place] FACC, ALI FACP CCDS Ot 401.9 06/29/2015 ANA [place]ANT[place] FACC, ALI FACP CCDS Ot 496 06/29/2015 ANA [place]ANT[place] FACC, ALI FACP CCDS Ot 729.81 06/29/2015 ANA [place]ANT[place] FACC, ALI FACP CCDS Ot 786.09 07/18/2015 BAIMA, RAYMOND L RAG BALER Ot 305.1 07/18/2015 BAIMA, RAYMOND L RAG BALER Ot 401.9 07/18/2015 BAIMA, RAYMOND L RAG BALER Ot 496 07/18/2015 BAIMA, RAYMOND L RAG BALER Ot 782.3 07/18/2015 BAIMA, RAYMOND L RAG BALER Ot 786.09 07/18/2015 MARY SANTA, CHENCHO Lindsey Ot 305.1 07/18/2015 MARY SANTA, CHENCHO Lindsey Ot 401.9 07/18/2015 MARY SANTA, CHENCHO Lindsey Ot 496 07/18/2015 MARY SANTA, CHENCHO Lindsey Ot 729.81 07/18/2015 CHENCHO HERNANDEZ MD Ot 786.09 07/18/2015 ANA SANTA FACC, ALI FACP CCDS Ot 272.4 07/18/2015 ANA SANTA FACC, ALI FACP CCDS Ot 305.1 07/18/2015 ANA [place]ANT[place] FACC, ALI FACP CCDS Ot 401.9 07/18/2015 ANA SANTA FACC, ALI FACP CCDS Ot 496 07/18/2015 ANA SANTA FACC, ALI FACP CCDS Ot 729.81 07/18/2015 ANA SANTA FACC, ALI FACP CCDS Ot 786.09 07/31/2015 Ot 621.2 07/31/2015 Ot 618.89 07/31/2015 Ot V72.63 07/31/2015 Ot V72.83 07/31/2015 Ot V74.8 07/31/2015 JEAN PIERRE MCCAULEY DO Ot 618.01 07/31/2015 JEAN PIERRE MCCAULEY DO Ot V72.84 07/31/2015 BAIMA, RAYMOND L RAG BALER Ot 305.1 07/31/2015 BAIMA, RAYMOND L RAG BALER Ot 401.9 07/31/2015 BAIMA, RAYMOND L RAG BALER Ot 496 07/31/2015 BAIMA, RAYMOND L RAG BALER Ot 782.3 07/31/2015 BAIMA, RAYMOND L RAG BALER Ot 786.09 07/31/2015 MARY SANTA, CHENCHO Lindsey Ot 305.1 07/31/2015 MARY SANTA, CHENCHO Lindsey Ot 401.9 07/31/2015 MARY SANTA, CHENCHO Lindsey Ot 496 07/31/2015 MARY SANTA, CHENCHO Lindsey Ot 729.81 07/31/2015 CHENCHO HERNANDEZ MD Ot 786.09 07/31/2015 ANA SANTA FACC, ALI FACP CCDS Ot 272.4 07/31/2015 ANA [place]ANT[place] FACC, ALI FACP CCDS Ot 305.1 07/31/2015 ANA SANTA FACC, ALI FACP CCDS Ot 401.9 07/31/2015 ANA SANTA FACC, ALI FACP CCDS Ot 496 07/31/2015 ANA SANTA FACC, ALI FACP CCDS Ot 729.81 07/31/2015 ANA SANTA FACC, ALI FACP CCDS Ot 786.09 08/07/2015 Ot 621.2 08/07/2015 Ot 618.89 08/07/2015 Ot V72.63 08/07/2015 Ot V72.83 08/07/2015 Ot V74.8 08/07/2015 JEAN PIERRE MCCAULEY DO C Ot 618.01 08/07/2015 CARTER MCCAULEY DOA C Ot V72.84 08/07/2015 RAYMOND BOWERS RAG BALER Ot 305.1 08/07/2015 RAYMOND BOWERS RAG BALER Ot 401.9 08/07/2015 RAYMOND BOWERS L RAG BALER Ot 496 08/07/2015 RAYMOND BOWERS L RAG BALER Ot 782.3 08/07/2015 RAYMOND BOWERS RAG BALER Ot 786.09 08/07/2015 CHENCHO HERNANDEZ MD Ot 305.1 08/07/2015 CHENCHO HERNANDEZ MD Ot 401.9 08/07/2015 CHENCHO HERNANDEZ MD Ot 496 08/07/2015 CHENCHO HERNANDEZ MD Ot 729.81 08/07/2015 CHENCHO HERNANDEZ MD Ot 786.09 08/07/2015 ANA SANTA FACC, ALI FACP CCDS Ot 272.4 08/07/2015 ANA [place] FACC, ALI FACP CCDS Ot 305.1 08/07/2015 ANA [place] FACC, ALI FACP CCDS Ot 401.9 08/07/2015 [facility], ALI FACP CCDS Ot 496 08/07/2015 [facility], ALI FACP CCDS Ot 729.81 08/07/2015 [facility], ALI FACP CCDS Ot 786.09 08/18/2015 BAIRAYMOND JUAREZ L RAG BALER Ot E78.5 08/18/2015 BAIMA RAYMOND L RAG BALER Ot I10 08/18/2015 BAIMA, RAYMOND L RAG BALER Ot R22.40 08/18/2015 BAIMA, RAYMOND L RAG BALER Ot Z72.0 08/25/2015 KYE SANTA, MACEY Capone Ot R09.89 11/07/2015 MACEY FISHMAN MD Ot R74.0 11/15/2015 Ot M62.81 11/15/2015 Ot R26.89 11/15/2015 Ot R41.3 11/16/2015 STEFANIE WILSON DO Ot G47.36 SLEEP RELATED HYPOVENTILATION IN CONDITI 11/16/2015 STEFANIE WILSON DO Ot R06.83 SNORING 11/17/2015 Ot 621.2 11/17/2015 Ot 618.89 11/17/2015 Ot V72.63 11/17/2015 Ot V72.83 11/17/2015 Ot V74.8 11/17/2015 JEAN PIERRE MCCAULEY DO Ot 618.01 11/17/2015 JEAN PIERRE MCCAULEY DO Ot V72.84 11/17/2015 ELISSARAYMOND L RAG BALER Ot 305.1 11/17/2015 BAIMA RAYMOND L RAG BALER Ot 401.9 11/17/2015 BAIMA, RAYMOND L RAG BALER Ot 496 11/17/2015 BAIMA, RAYMOND L RAG BALER Ot 782.3 11/17/2015 GENEMA, RAYMOND L RAG BALER Ot 786.09 11/17/2015 MARY SANTA, CHENCHO Lindsey Ot 305.1 11/17/2015 MARY SANTA, CHENCHO Lindsey Ot 401.9 11/17/2015 MARY SANTA, CHENCHO Lindsey Ot 496 11/17/2015 MARY SANTA, CHENCHO Lindsey Ot 729.81 11/17/2015 CHENCHO HERNANDEZ MD Ot 786.09 11/17/2015 [facility], ALI FACP CCDS Ot 272.4 11/17/2015 [facility], ALI FACP CCDS Ot 305.1 11/17/2015 [facility], ALI FACP CCDS Ot 401.9 11/17/2015 [facility], ALI FACP CCDS Ot 496 11/17/2015 [facility], ALI FACP CCDS Ot 729.81 11/17/2015 [facility], ALI FACP CCDS Ot 786.09 11/17/2015 KYE SANTA, MACEY Capone Ot R09.89 11/17/2015 BAIMARAYMOND L RAG BALER Ot E78.5 11/17/2015 BAIMARAYMOND L RAG BALER Ot I10 11/17/2015 BAIMA RAYMOND L RAG BALER Ot R22.40 11/17/2015 BAIMARAYMOND L RAG BALER Ot Z72.0 11/17/2015 KYE SANTA, MACEY Capone Ot R74.0 11/17/2015 Ot M62.81 11/17/2015 Ot R26.89 11/17/2015 Ot R41.3 11/17/2015 KYE SANTA, MACEY Capone Ot R74.0 11/21/2015 Ot M62.81 11/21/2015 Ot R26.89 11/21/2015 Ot R41.3 11/22/2015 STEFANIE WILSON DO Ot G47.36 11/22/2015 STEFANIE WILSON DO Ot R06.83 12/13/2015 ЕЛЕНА ALEJANDRO APRN Ot F17.210 NICOTINE DEPENDENCE, CIGARETTES, UNCOMPL 12/13/2015 ЕЛЕНА ALEJANDRO APRN Ot J44.9 CHRONIC OBSTRUCTIVE PULMONARY DISEASE, U 12/13/2015 ЕЛЕНА ALEJANDRO APRN Ot R06.09 OTHER FORMS OF DYSPNEA 01/02/2016 ЕЛЕНА ALEJANDRO APRN Ot F17.210 NICOTINE DEPENDENCE, CIGARETTES, UNCOMPL 01/02/2016 ЕЛЕНА ALEJANDRO APRN Ot J44.9 CHRONIC OBSTRUCTIVE PULMONARY DISEASE, U 01/02/2016 ЕЛЕНА ALEJANDRO APRN Ot R06.09 OTHER FORMS OF DYSPNEA 01/12/2016 Ot 621.2 HYPERTROPHY OF UTERUS 01/12/2016 Ot 618.89 OTHER SPECIFIED GENITAL PROLAPSE 01/12/2016 Ot V72.63 PRE-PROCEDURAL LABORATORY EXAMINATION 01/12/2016 Ot V72.83 EXAM PRE-OPERATIVE NEC 01/12/2016 Ot V74.8 SCREEN-BACTERIAL DIS NEC 01/12/2016 JEAN PIERRE MCCAULEY DO Ot 618.01 CYSTOCELE, MIDLINE 01/12/2016 JEAN PIERRE MCCAULEY DO Ot V72.84 EXAM PRE-OPERATIVE NOS 01/12/2016 RAYMOND BOWERS RAG BALER Ot 305.1 TOBACCO USE DISORDER 01/12/2016 RAYMOND BOWERS L RAG BALER Ot 401.9 HYPERTENSION NOS 01/12/2016 RAYMOND BOWERS RAG BALER Ot 496 CHR AIRWAY OBSTRUCT NEC 01/12/2016 RAYMOND BOWERS RAG BALER Ot 782.3 EDEMA 01/12/2016 RAYMOND BOWERS L RAG BALER Ot 786.09 RESPIRATORY ABNORM NEC 01/12/2016 CHENCHO HERNANDEZ MD Ot 305.1 TOBACCO USE DISORDER 01/12/2016 CHENCHO HERNANDEZ MD Ot 401.9 HYPERTENSION NOS 01/12/2016 CHENCHO HERNANDEZ MD J Ot 496 CHR AIRWAY OBSTRUCT NEC 01/12/2016 CHENCHO HERNANDEZ MD Ot 729.81 SWELLING OF LIMB 01/12/2016 CHENCHO HERNANDEZ MD Ot 786.09 RESPIRATORY ABNORM NEC 01/12/2016 ANA SANTA FACC, AYAKA FACP CCDS Ot 272.4 HYPERLIPIDEMIA NEC/NOS 01/12/2016 ANA SANTA FACC, ALI FACP CCDS Ot 305.1 TOBACCO USE DISORDER 01/12/2016 ANA SANTA FACC, ALI FACP CCDS Ot 401.9 HYPERTENSION NOS 01/12/2016 ANA SANTA FACC, ALI FACP CCDS Ot 496 CHR AIRWAY OBSTRUCT NEC 01/12/2016 ANA SANTA FACC, ALI FACP CCDS Ot 729.81 SWELLING OF LIMB 01/12/2016 ANA SANTA FACC, ALI FACP CCDS Ot 786.09 RESPIRATORY ABNORM NEC 01/12/2016 KYE SANTA, MACEY Capone Ot R09.89 OTH SYMPTOMS AND SIGNS INVOLVING THE CIR 01/12/2016 RAYMOND BOWERS RAG BALER Ot E78.5 HYPERLIPIDEMIA, UNSPECIFIED 01/12/2016 EFREN BOWERSHER L RAG BALER Ot I10 ESSENTIAL (PRIMARY) HYPERTENSION 01/12/2016 ELISSARAYMOND Prachi EISENBERG Ot R22.40 LOCALIZED SWELLING, MASS AND LUMP, UNSPE 01/12/2016 ELISSAEFRENRAYMONDHER Prachi EISENBERG Ot Z72.0 TOBACCO USE 01/12/2016 KYE SANTA, MACEY Capone Ot R74.0 NONSPEC ELEV OF LEVELS OF TRANSAMNS LA 01/12/2016 Ot M62.81 MUSCLE WEAKNESS (GENERALIZED) 01/12/2016 Ot R26.89 OTHER ABNORMALITIES OF GAIT AND MOBILITY 01/12/2016 Ot R41.3 OTHER AMNESIA 01/22/2016 RAYMOND BOWERS Ot E78.5 HYPERLIPIDEMIA, UNSPECIFIED 02/20/2016 FELISHA ROGERS MD, Ot E78.5 HYPERLIPIDEMIA, UNSPECIFIED 02/20/2016 FELISHA ROGERS MD, Ot I10 ESSENTIAL (PRIMARY) HYPERTENSION 02/20/2016 FELISHA ROGERS MD, Ot I70.0 ATHEROSCLEROSIS OF AORTA 02/20/2016 FELISHA ROGERS MD, Ot J44.9 CHRONIC OBSTRUCTIVE PULMONARY DISEASE, U 02/20/2016 FELISHA ROGERS MD Ot M79.89 OTHER SPECIFIED SOFT TISSUE DISORDERS 02/20/2016 FELISHA ROGERS MD Ot R07.89 OTHER CHEST PAIN 02/20/2016 FELISHA ROGERS MD Ot Z72.0 TOBACCO USE 02/20/2016 FELISHA ROGERS MD, Ot Z79.899 OTHER [facility] (CURRENT) DRUG THERAPY 02/21/2016 RAYMOND BOWERS Ot E78.5 HYPERLIPIDEMIA, UNSPECIFIED 02/21/2016 ЕЛЕНА ALEJANDRO APRN Ot F17.210 NICOTINE DEPENDENCE, CIGARETTES, UNCOMPL 02/21/2016 ЕЛЕНА ALEJANDRO APRN Ot J44.9 CHRONIC OBSTRUCTIVE PULMONARY DISEASE, U 02/21/2016 ЕЛЕНА ALEJANDRO APRN Ot R06.09 OTHER FORMS OF DYSPNEA 02/29/2016 FELISHA ROGERS MD, Ot E78.5 HYPERLIPIDEMIA, UNSPECIFIED 02/29/2016 FELISHA ROGERS MD, Ot I10 ESSENTIAL (PRIMARY) HYPERTENSION 02/29/2016 FELISHA ROGERS MD Ot I70.0 ATHEROSCLEROSIS OF AORTA 02/29/2016 FELISHA ROGERS MD, Ot J44.9 CHRONIC OBSTRUCTIVE PULMONARY DISEASE, U 02/29/2016 FELISHA ROGERS MD Ot M79.89 OTHER SPECIFIED SOFT TISSUE DISORDERS 02/29/2016 FELISHA ROGERS MD Ot R07.89 OTHER CHEST PAIN 02/29/2016 FELISHA ROGERS MD Ot Z72.0 TOBACCO USE 02/29/2016 FELISHA ROGERS MD Ot Z79.899 OTHER [facility] (CURRENT) DRUG THERAPY 03/13/2016 ЕЛЕНА ALEJANDRO APRN Ot F17.210 NICOTINE DEPENDENCE, CIGARETTES, UNCOMPL 03/13/2016 ЕЛЕНА ALEJANDRO APRN Ot J44.9 CHRONIC OBSTRUCTIVE PULMONARY DISEASE, U 03/13/2016 ЕЛЕНА ALEJANDRO APRN Ot R06.09 OTHER FORMS OF DYSPNEA 03/13/2016 RAYMOND BOWERS RAG BALER Ot E78.5 HYPERLIPIDEMIA, UNSPECIFIED 08/07/2016 Ot 621.2 HYPERTROPHY OF UTERUS 08/07/2016 Ot 618.89 OTHER SPECIFIED GENITAL PROLAPSE 08/07/2016 Ot V72.63 PRE-PROCEDURAL LABORATORY EXAMINATION 08/07/2016 Ot V72.83 EXAM PRE-OPERATIVE NEC 08/07/2016 Ot V74.8 SCREEN-BACTERIAL DIS NEC 08/07/2016 JEAN PIERRE MCCAULEY DO Ot 618.01 CYSTOCELE, MIDLINE 08/07/2016 JEAN PIERRE MCCAULEY DO Ot V72.84 EXAM PRE-OPERATIVE NOS 08/07/2016 RAYMOND BOWERS L RAG BALER Ot 305.1 TOBACCO USE DISORDER 08/07/2016 EFREN BOWERSHER L RAG BALER Ot 401.9 HYPERTENSION NOS 08/07/2016 RAYMOND BOWERS L RAG BALER Ot 496 CHR AIRWAY OBSTRUCT NEC 08/07/2016 ELISSA RAYMOND L RAG BALER Ot 782.3 EDEMA 08/07/2016 ELISSA RAYMOND L RAG BALER Ot 786.09 RESPIRATORY ABNORM NEC 08/07/2016 CHENCHO HERNANDEZ MD Ot 305.1 TOBACCO USE DISORDER 08/07/2016 CHENCHO HERNANDEZ MD Ot 401.9 HYPERTENSION NOS 08/07/2016 CHENCHO HERNANDEZ MD Ot 496 CHR AIRWAY OBSTRUCT NEC 08/07/2016 CHENCHO HERNANDEZ MD Ot 729.81 SWELLING OF LIMB 08/07/2016 CHENCHO HERNANDEZ MD Ot 786.09 RESPIRATORY ABNORM NEC 08/07/2016 ANA SANTA FACC, ALI FACP CCDS Ot 272.4 HYPERLIPIDEMIA NEC/NOS 08/07/2016 ANA SANTA FACC, ALI FACP CCDS Ot 305.1 TOBACCO USE DISORDER 08/07/2016 ANA SANTA FACC, ALI FACP CCDS Ot 401.9 HYPERTENSION NOS 08/07/2016 ANA SANTA FACC, ALI FACP CCDS Ot 496 CHR AIRWAY OBSTRUCT NEC 08/07/2016 ANA SANTA FACC, ALI FACP CCDS Ot 729.81 SWELLING OF LIMB 08/07/2016 ANA SEALS, ALI FACP CCDS Ot 786.09 RESPIRATORY ABNORM NEC 08/07/2016 KYE SANTA, MACEY Capone Ot R09.89 OTH SYMPTOMS AND SIGNS INVOLVING THE CIR 08/07/2016 RAYMOND BOWERS RAG BALER Ot E78.5 HYPERLIPIDEMIA, UNSPECIFIED 08/07/2016 RAYMOND BOWERS RAG BALER Ot I10 ESSENTIAL (PRIMARY) HYPERTENSION 08/07/2016 RAYMOND BOWERS RAG BALER Ot R22.40 LOCALIZED SWELLING, MASS AND LUMP, UNSPE 08/07/2016 RAYMOND BOWERS RAG BALER Ot Z72.0 TOBACCO USE 08/07/2016 KYE SANTA, MACEY Capone Ot R74.0 NONSPEC ELEV OF LEVELS OF TRANSAMNS LA 08/07/2016 Ot M62.81 MUSCLE WEAKNESS (GENERALIZED) 08/07/2016 Ot R26.89 OTHER ABNORMALITIES OF GAIT AND MOBILITY 08/07/2016 Ot R41.3 OTHER AMNESIA 08/07/2016 ЕЛЕНА ALEJANDRO APRN Ot F17.210 NICOTINE DEPENDENCE, CIGARETTES, UNCOMPL 08/07/2016 ЕЛЕНА ALEJANDRO APRN Ot J44.9 CHRONIC OBSTRUCTIVE PULMONARY DISEASE, U 08/07/2016 ЕЛЕНА ALEJANDRO APRN Ot R06.09 OTHER FORMS OF DYSPNEA 08/07/2016 RAYMOND BOWERSP Ot E78.5 HYPERLIPIDEMIA, UNSPECIFIED 08/07/2016 Ot 621.2 HYPERTROPHY OF UTERUS 08/07/2016 Ot 618.89 OTHER SPECIFIED GENITAL PROLAPSE 08/07/2016 Ot V72.63 PRE-PROCEDURAL LABORATORY EXAMINATION 08/07/2016 Ot V72.83 EXAM PRE-OPERATIVE NEC 08/07/2016 Ot V74.8 SCREEN-BACTERIAL DIS NEC 08/07/2016 JEAN PIERRE MCCAULEY DO Ot 618.01 CYSTOCELE, MIDLINE 08/07/2016 JEAN PIERRE MCCAULEY DO Ot V72.84 EXAM PRE-OPERATIVE NOS 08/07/2016 GENEEFREN JUAREZHER Velarde RAG BALER Ot 305.1 TOBACCO USE DISORDER 08/07/2016 GENERAYMOND JUAREZ L RAG BALER Ot 401.9 HYPERTENSION NOS 08/07/2016 GENERAYMOND JUAREZ L RAG BALER Ot 496 CHR AIRWAY OBSTRUCT NEC 08/07/2016 RAYMOND BOWERS L RAG BALER Ot 782.3 EDEMA 08/07/2016 RAYMOND BOWERS L RAG BALER Ot 786.09 RESPIRATORY ABNORM NEC 08/07/2016 CHENCHO HERNANDEZ MD Ot 305.1 TOBACCO USE DISORDER 08/07/2016 CHENCHO HERNANDEZ MD Ot 401.9 HYPERTENSION NOS 08/07/2016 CHENCHO HERNANDEZ MD J Ot 496 CHR AIRWAY OBSTRUCT NEC 08/07/2016 CHENCHO HERNANDEZ MD Ot 729.81 SWELLING OF LIMB 08/07/2016 CHENCHO HERNANDEZ MD Ot 786.09 RESPIRATORY ABNORM NEC 08/07/2016 ANA SANTA FACC, ALI FACP CCDS Ot 272.4 HYPERLIPIDEMIA NEC/NOS 08/07/2016 ANA SANTA FACC, ALI FACP CCDS Ot 305.1 TOBACCO USE DISORDER 08/07/2016 ANA SANTA FACC, ALI FACP CCDS Ot 401.9 HYPERTENSION NOS 08/07/2016 ANA SANTA FACC, ALI FACP CCDS Ot 496 CHR AIRWAY OBSTRUCT NEC 08/07/2016 ANA SANTA FACC, ALI FACP CCDS Ot 729.81 SWELLING OF LIMB 08/07/2016 ANA SANTA FACC, ALI FACP CCDS Ot 786.09 RESPIRATORY ABNORM NEC 08/07/2016 MACEY FISHMAN MD Ot R09.89 OTH SYMPTOMS AND SIGNS INVOLVING THE CIR 08/07/2016 ELISSA RAYMOND Velarde RAG BALER Ot E78.5 HYPERLIPIDEMIA, UNSPECIFIED 08/07/2016 RAYMOND BOWERS RAG BALER Ot I10 ESSENTIAL (PRIMARY) HYPERTENSION 08/07/2016 ELISSA RAYMOND L RAG BALER Ot R22.40 LOCALIZED SWELLING, MASS AND LUMP, UNSPE 08/07/2016 RAYMOND BOWERS RAG BALER Ot Z72.0 TOBACCO USE 08/07/2016 KYE MD, MACEY N Ot R74.0 NONSPEC ELEV OF LEVELS OF TRANSAMNS LA 08/07/2016 Ot M62.81 MUSCLE WEAKNESS (GENERALIZED) 08/07/2016 Ot R26.89 OTHER ABNORMALITIES OF GAIT AND MOBILITY 08/07/2016 Ot R41.3 OTHER AMNESIA 08/07/2016 ЕЛЕНА ALEJANDRO APRN Ot F17.210 NICOTINE DEPENDENCE, CIGARETTES, UNCOMPL 08/07/2016 ЕЛЕНА ALEJANDRO APRN Ot J44.9 CHRONIC OBSTRUCTIVE PULMONARY DISEASE, U 08/07/2016 ЕЛЕНА ALEJANDRO APRN Ot R06.09 OTHER FORMS OF DYSPNEA 08/07/2016 BAIMA, RAYMOND L RAG BALER Ot E78.5 HYPERLIPIDEMIA, UNSPECIFIED 08/08/2016 BAIMA, RAYMOND L RAG BALER Ot E78.5 HYPERLIPIDEMIA, UNSPECIFIED 08/08/2016 BAIMA, RAYMOND L RAG BALER Ot I10 ESSENTIAL (PRIMARY) HYPERTENSION 08/08/2016 BAIMA RAYMOND L RAG BALER Ot J44.9 CHRONIC OBSTRUCTIVE PULMONARY DISEASE, U 08/08/2016 BAIMA, RAYMOND L RAG BALER Ot Z72.0 TOBACCO USE 08/20/2016 BAIMA, RAYMOND L RAG BALER Ot E78.5 HYPERLIPIDEMIA, UNSPECIFIED 08/20/2016 BAIMA, RAYMOND L RAG BALER Ot I10 ESSENTIAL (PRIMARY) HYPERTENSION 08/20/2016 BAIMA, RAYMOND L RAG BALER Ot J44.9 CHRONIC OBSTRUCTIVE PULMONARY DISEASE, U 08/20/2016 BAIMA, RAYMOND L RAG BALER Ot Z72.0 TOBACCO USE 01/22/2017 Ot 621.2 HYPERTROPHY OF UTERUS 01/22/2017 Ot 618.89 OTHER SPECIFIED GENITAL PROLAPSE 01/22/2017 Ot V72.63 PRE-PROCEDURAL LABORATORY EXAMINATION 01/22/2017 Ot V72.83 EXAM PRE-OPERATIVE NEC 01/22/2017 Ot V74.8 SCREEN-BACTERIAL DIS NEC 01/22/2017 JEAN PIERRE MCCAULEY DO Ot 618.01 CYSTOCELE, MIDLINE 01/22/2017 JEAN PIERRE MCCAULEY DO Ot V72.84 EXAM PRE-OPERATIVE NOS 01/22/2017 ELISSA RAYMOND L RAG BALER Ot 305.1 TOBACCO USE DISORDER 01/22/2017 BAIMA, RAYMOND L RAG BALER Ot 401.9 HYPERTENSION NOS 01/22/2017 GENEMA RAYMOND L RAG BALER Ot 496 CHR AIRWAY OBSTRUCT NEC 01/22/2017 BAIRAYMOND JUAREZ Prachi RAG BALER Ot 782.3 EDEMA 01/22/2017 GENERAYMOND JUAREZ Prachi RAG BALER Ot 786.09 RESPIRATORY ABNORM NEC 01/22/2017 CHENCHO HERNANDEZ MD Ot 305.1 TOBACCO USE DISORDER 01/22/2017 CHENCHO HERNANDEZ MD Ot 401.9 HYPERTENSION NOS 01/22/2017 CHENCHO HERNANDEZ MD J Ot 496 CHR AIRWAY OBSTRUCT NEC 01/22/2017 CHENCHO HERNANDEZ MD Ot 729.81 SWELLING OF LIMB 01/22/2017 CHENCHO HERNANDEZ MD Ot 786.09 RESPIRATORY ABNORM NEC 01/22/2017 ANA SANTA FACC, ALI FACP CCDS Ot 272.4 HYPERLIPIDEMIA NEC/NOS 01/22/2017 ANA SANTA FACC, ALI FACP CCDS Ot 305.1 TOBACCO USE DISORDER 01/22/2017 ANA SANTA FACC, ALI FACP CCDS Ot 401.9 HYPERTENSION NOS 01/22/2017 ANA SANTA FACC, ALI FACP CCDS Ot 496 CHR AIRWAY OBSTRUCT NEC 01/22/2017 ANA SANTA FACC, ALI FACP CCDS Ot 729.81 SWELLING OF LIMB 01/22/2017 ANA SANTA FACC, ALI FACP CCDS Ot 786.09 RESPIRATORY ABNORM NEC 01/22/2017 MACEY FISHMAN MD Ot R09.89 OTH SYMPTOMS AND SIGNS INVOLVING THE CIR 01/22/2017 RAYMOND BOWERS RAG BALER Ot E78.5 HYPERLIPIDEMIA, UNSPECIFIED 01/22/2017 GENERAYMOND JUAREZ Prachi RAG BALER Ot I10 ESSENTIAL (PRIMARY) HYPERTENSION 01/22/2017 GENERAYMOND JUAREZ Prachi RAG BALER Ot R22.40 LOCALIZED SWELLING, MASS AND LUMP, UNSPE 01/22/2017 GENERAYMOND JUAREZ RAG BALER Ot Z72.0 TOBACCO USE 01/22/2017 MACEY FISHMAN MD Ot R74.0 NONSPEC ELEV OF LEVELS OF TRANSAMNS LA 01/22/2017 Ot M62.81 MUSCLE WEAKNESS (GENERALIZED) 01/22/2017 Ot R26.89 OTHER ABNORMALITIES OF GAIT AND MOBILITY 01/22/2017 Ot R41.3 OTHER AMNESIA 01/22/2017 ЕЛЕНА ALEJANDRO APRN Ot F17.210 NICOTINE DEPENDENCE, CIGARETTES, UNCOMPL 01/22/2017 FLAVIA, ЕЛЕНА E DIABETIC EDUCATOR Ot J44.9 CHRONIC OBSTRUCTIVE PULMONARY DISEASE, U 01/22/2017 ЕЛЕНА ALEJANDRO DIABETIC EDUCATOR Ot R06.09 OTHER FORMS OF DYSPNEA 01/22/2017 RAYMOND BOWERS RAG BALER Ot E78.5 HYPERLIPIDEMIA, UNSPECIFIED 01/22/2017 RAYMOND BOWERS RAG BALER Ot E78.5 HYPERLIPIDEMIA, UNSPECIFIED 01/22/2017 RAYMOND BOWERS L RAG BALER Ot I10 ESSENTIAL (PRIMARY) HYPERTENSION 01/22/2017 RAYMOND BOWERS RAG BALER Ot J44.9 CHRONIC OBSTRUCTIVE PULMONARY DISEASE, U 01/22/2017 RAYMOND BOWERS RAG BALER Ot Z72.0 TOBACCO USE 02/20/2017 Ot 621.2 HYPERTROPHY OF UTERUS 02/20/2017 Ot 618.89 OTHER SPECIFIED GENITAL PROLAPSE 02/20/2017 Ot V72.63 PRE-PROCEDURAL LABORATORY EXAMINATION 02/20/2017 Ot V72.83 EXAM PRE-OPERATIVE NEC 02/20/2017 Ot V74.8 SCREEN-BACTERIAL DIS NEC 02/20/2017 JEAN PIERRE MCCAULEY DO Ot 618.01 CYSTOCELE, MIDLINE 02/20/2017 JEAN PIERRE MCCAULEY DO Ot V72.84 EXAM PRE-OPERATIVE NOS 02/20/2017 RAYMOND BOWERS L RAG BALER Ot 305.1 TOBACCO USE DISORDER 02/20/2017 RAYMOND BOWERS L RAG BALER Ot 401.9 HYPERTENSION NOS 02/20/2017 GENERAYMOND JUAREZ L RAG BALER Ot 496 CHR AIRWAY OBSTRUCT NEC 02/20/2017 RAYMOND BOWERS L RAG BALER Ot 782.3 EDEMA 02/20/2017 GENERAYMOND JUAREZ L RAG BALER Ot 786.09 RESPIRATORY ABNORM NEC 02/20/2017 CHENCHO HERNANDEZ MD Ot 305.1 TOBACCO USE DISORDER 02/20/2017 CHENCHO HERNANDEZ MD Ot 401.9 HYPERTENSION NOS 02/20/2017 CHENCHO HERNANDEZ MD Ot 496 CHR AIRWAY OBSTRUCT NEC 02/20/2017 CHENCHO HERNANDEZ MD Ot 729.81 SWELLING OF LIMB 02/20/2017 CHENCHO HERNANDEZ MD Ot 786.09 RESPIRATORY ABNORM NEC 02/20/2017 ANA SANTA FACC, ALI FACP CCDS Ot 272.4 HYPERLIPIDEMIA NEC/NOS 02/20/2017 ANA SANTA FACC, ALI FACP CCDS Ot 305.1 TOBACCO USE DISORDER 02/20/2017 ANA SANTA FAC, ALI FACP CCDS Ot 401.9 HYPERTENSION NOS 02/20/2017 ANA SANT[place] FAC, ALI FACP CCDS Ot 496 CHR AIRWAY OBSTRUCT NEC 02/20/2017 ANA S[place] FAC, ALI FACP CCDS Ot 729.81 SWELLING OF LIMB 02/20/2017 ANA SANTA FAC, ALI FACP CCDS Ot 786.09 RESPIRATORY ABNORM NEC 02/20/2017 KYE SANTA, MACEY Capone Ot R09.89 OT SYMPTOMS AND SIGNS INVOLVING THE CIR 02/20/2017 RAYMOND BOWERS L RAG BALER Ot E78.5 HYPERLIPIDEMIA, UNSPECIFIED 02/20/2017 ELISSA RAYMOND L RAG BALER Ot I10 ESSENTIAL (PRIMARY) HYPERTENSION 02/20/2017 RAYMOND BOWERS L RAG BALER Ot R22.40 LOCALIZED SWELLING, MASS AND LUMP, UNSPE 02/20/2017 RAYMOND BOWERS L RAG BALER Ot Z72.0 TOBACCO USE 02/20/2017 MACEY FISHMAN MD Ot R74.0 NONSPEC ELEV OF LEVELS OF TRANSAMNS LA 02/20/2017 Ot M62.81 MUSCLE WEAKNESS (GENERALIZED) 02/20/2017 Ot R26.89 OTHER ABNORMALITIES OF GAIT AND MOBILITY 02/20/2017 Ot R41.3 OTHER AMNESIA 02/20/2017 ЕЛЕНА ALEJANDRO APRN Ot F17.210 NICOTINE DEPENDENCE, CIGARETTES, UNCOMPL 02/20/2017 ЕЛЕНА ALEJANDRO APRN Ot J44.9 CHRONIC OBSTRUCTIVE PULMONARY DISEASE, U 02/20/2017 ЕЛЕНА ALEJANDRO APRN Ot R06.09 OTHER FORMS OF DYSPNEA 02/20/2017 RAYMOND BOWERS RAG BALER Ot E78.5 HYPERLIPIDEMIA, UNSPECIFIED 02/20/2017 RAYMOND BOWERS L RAG BALER Ot E78.5 HYPERLIPIDEMIA, UNSPECIFIED 02/20/2017 ELISSA RAYMOND L RAG BALER Ot I10 ESSENTIAL (PRIMARY) HYPERTENSION 02/20/2017 RAYMOND BOWERS L RAG BALER Ot J44.9 CHRONIC OBSTRUCTIVE PULMONARY DISEASE, U 02/20/2017 RAYMOND BOWERS L RAG BALER Ot Z72.0 TOBACCO USE 02/20/2017 MACEY FISHMAN MD Ot F17.210 NICOTINE DEPENDENCE, CIGARETTES, UNCOMPL 02/20/2017 MACEY FISHMAN MD Ot Z12.2 ENCNTR SCREEN FOR MALIGNANT NEOPLASM OF 02/20/2017 GENERAYMOND JUAREZ L RAG BALER Ot E78.5 HYPERLIPIDEMIA, UNSPECIFIED 02/20/2017 BAIMA, RAYMOND L RAG BALER Ot I10 ESSENTIAL (PRIMARY) HYPERTENSION 02/20/2017 BAIMA, RAYMOND L RAG BALER Ot J44.9 CHRONIC OBSTRUCTIVE PULMONARY DISEASE, U 02/20/2017 BAIMA, RAYMOND L RAG BALER Ot Z72.0 TOBACCO USE 02/24/2017 MACEY FISHMAN MD Ot F17.210 NICOTINE DEPENDENCE, CIGARETTES, UNCOMPL 02/24/2017 MACEY FISHMAN MD Ot Z12.2 ENCNTR SCREEN FOR MALIGNANT NEOPLASM OF 03/07/2017 MACEY FISHMAN MD Ot F17.210 NICOTINE DEPENDENCE, CIGARETTES, UNCOMPL 03/07/2017 MACEY FISHMAN MD Ot Z12.2 ENCNTR SCREEN FOR MALIGNANT NEOPLASM OF 03/14/2017 ELISSA RAYMOND L RAG BALER Ot E78.5 HYPERLIPIDEMIA, UNSPECIFIED 03/14/2017 ELISSA RAYMOND L RAG BALER Ot I10 ESSENTIAL (PRIMARY) HYPERTENSION 03/14/2017 ELISSA RAYMOND L RAG BALER Ot J44.9 CHRONIC OBSTRUCTIVE PULMONARY DISEASE, U 03/14/2017 ELISSA RAYMOND L RAG BALER Ot Z72.0 TOBACCO USE 05/05/2017 Ot 621.2 HYPERTROPHY OF UTERUS 05/05/2017 Ot 618.89 OTHER SPECIFIED GENITAL PROLAPSE 05/05/2017 Ot V72.63 PRE-PROCEDURAL LABORATORY EXAMINATION 05/05/2017 Ot V72.83 EXAM PRE-OPERATIVE NEC 05/05/2017 Ot V74.8 SCREEN-BACTERIAL DIS NEC 05/05/2017 JEAN PIERRE MCCAULEY DO Ot 618.01 CYSTOCELE, MIDLINE 05/05/2017 JEAN PIERRE MCCAULEY DO Ot V72.84 EXAM PRE-OPERATIVE NOS 05/05/2017 ELISSA RAYMOND L RAG BALER Ot 305.1 TOBACCO USE DISORDER 05/05/2017 ELISSA RAYMOND L RAG BALER Ot 401.9 HYPERTENSION NOS 05/05/2017 GENEMA, RAYMOND L RAG BALER Ot 496 CHR AIRWAY OBSTRUCT NEC 05/05/2017 ELISSA, RAYMOND L RAG BALER Ot 782.3 EDEMA 05/05/2017 GENEMA RAYMOND L RAG BALER Ot 786.09 RESPIRATORY ABNORM NEC 05/05/2017 CHENCHO HERNANDEZ MD Ot 305.1 TOBACCO USE DISORDER 05/05/2017 CHENCHO HERNANDEZ MD Ot 401.9 HYPERTENSION NOS 05/05/2017 CHENCHO HERNANDEZ MD Ot 496 CHR AIRWAY OBSTRUCT NEC 05/05/2017 CHENCHO HERNANDEZ MD Ot 729.81 SWELLING OF LIMB 05/05/2017 CHENCHO HERNANDEZ MD Ot 786.09 RESPIRATORY ABNORM NEC 05/05/2017 ANA SANTA FACC, ALI FACP CCDS Ot 272.4 HYPERLIPIDEMIA NEC/NOS 05/05/2017 ANA SANTA FACC, ALI FACP CCDS Ot 305.1 TOBACCO USE DISORDER 05/05/2017 ANA SANTA FACC, ALI FACP CCDS Ot 401.9 HYPERTENSION NOS 05/05/2017 ANA SANTA FACC, ALI FACP CCDS Ot 496 CHR AIRWAY OBSTRUCT NEC 05/05/2017 ANA SANTA FACC, ALI FACP CCDS Ot 729.81 SWELLING OF LIMB 05/05/2017 ANA SANTA FACC, ALI FACP CCDS Ot 786.09 RESPIRATORY ABNORM NEC 05/05/2017 MACEY FISHMAN MD Ot R09.89 OTH SYMPTOMS AND SIGNS INVOLVING THE CIR 05/05/2017 RAYMOND BOWERS RAG BALER Ot E78.5 HYPERLIPIDEMIA, UNSPECIFIED 05/05/2017 RAYMOND BOWERS RAG BALER Ot I10 ESSENTIAL (PRIMARY) HYPERTENSION 05/05/2017 RAYMOND BOWERS RAG BALER Ot R22.40 LOCALIZED SWELLING, MASS AND LUMP, UNSPE 05/05/2017 RAYMOND BOWERS RAG BALER Ot Z72.0 TOBACCO USE 05/05/2017 MACEY FISHMAN MD Ot R74.0 NONSPEC ELEV OF LEVELS OF TRANSAMNS LA 05/05/2017 Ot M62.81 MUSCLE WEAKNESS (GENERALIZED) 05/05/2017 Ot R26.89 OTHER ABNORMALITIES OF GAIT AND MOBILITY 05/05/2017 Ot R41.3 OTHER AMNESIA 05/05/2017 ЕЛЕНА ALEJANDRO APRN Ot F17.210 NICOTINE DEPENDENCE, CIGARETTES, UNCOMPL 05/05/2017 ЕЛЕНА ALEJANDRO APRN Ot J44.9 CHRONIC OBSTRUCTIVE PULMONARY DISEASE, U 05/05/2017 ЕЛЕНА ALEJANDRO APRN Ot R06.09 OTHER FORMS OF DYSPNEA 05/05/2017 RAYMOND BOWERS RAG BALER Ot E78.5 HYPERLIPIDEMIA, UNSPECIFIED 05/05/2017 RAYMOND BOWERS RAG BALER Ot E78.5 HYPERLIPIDEMIA, UNSPECIFIED 05/05/2017 RAYMOND BOWERS RAG BALER Ot I10 ESSENTIAL (PRIMARY) HYPERTENSION 05/05/2017 RAYMOND BOWERS RAG BALER Ot J44.9 CHRONIC OBSTRUCTIVE PULMONARY DISEASE, U 05/05/2017 RAYMOND BOWERS RAG BALER Ot Z72.0 TOBACCO USE 05/05/2017 KYE SANTA, MACEY Capone Ot F17.210 NICOTINE DEPENDENCE, CIGARETTES, UNCOMPL 05/05/2017 MACEY FISHMAN MD Ot Z12.2 ENCNTR SCREEN FOR MALIGNANT NEOPLASM OF 05/07/2017 ANA SANTA FACC, ALI FACP CCDS Ot E78.4 OTHER HYPERLIPIDEMIA 05/07/2017 ANA SANTA FACC, ALI FACP CCDS Ot I10 ESSENTIAL (PRIMARY) HYPERTENSION 05/07/2017 ANA SANTA FACC, ALI FACP CCDS Ot J43.8 OTHER EMPHYSEMA 05/07/2017 ANA SANTA FACC, ALI FACP CCDS Ot Z72.0 TOBACCO USE 05/21/2017 ANA SANTA FACC, ALI FACP CCDS Ot E78.4 OTHER HYPERLIPIDEMIA 05/21/2017 ANA SANTA FACC, ALI FACP CCDS Ot I10 ESSENTIAL (PRIMARY) HYPERTENSION 05/21/2017 ANA SANTA FACC, ALI FACP CCDS Ot J43.8 OTHER EMPHYSEMA 05/21/2017 ANA SANTA FACC, ALI FACP CCDS Ot Z72.0 TOBACCO USE 06/03/2017 MACEY FISHMAN MD Ot Z72.0 TOBACCO USE 06/13/2017 MACEY FISHMAN MD Ot Z72.0 TOBACCO USE 05/13/2018 JEAN PIERRE MCCAULEY DO Ot 618.01 CYSTOCELE, MIDLINE 05/13/2018 JEAN PIERRE MCCAULEY DO Ot V72.84 EXAM PRE-OPERATIVE NOS 05/13/2018 RAYMOND BOWERS RAG BALER Ot 305.1 TOBACCO USE DISORDER 05/13/2018 RAYMOND BOWERS RAG BALER Ot 401.9 HYPERTENSION NOS 05/13/2018 RAYMOND BOWERS RAG BALER Ot 496 CHR AIRWAY OBSTRUCT NEC 05/13/2018 RAYMOND BOWERS RAG BALER Ot 782.3 EDEMA 05/13/2018 GENERAYMOND JUAREZ RAG BALER Ot 786.09 RESPIRATORY ABNORM NEC 05/13/2018 CHENCHO HERNANDEZ MD Ot 305.1 TOBACCO USE DISORDER 05/13/2018 CHENCHO HERNANDEZ MD Ot 401.9 HYPERTENSION NOS 05/13/2018 CHENCHO HERNANDEZ MD Ot 496 CHR AIRWAY OBSTRUCT NEC 05/13/2018 CHENCHO HERNANDEZ MD Ot 729.81 SWELLING OF LIMB 05/13/2018 CHENCHO HERNANDEZ MD Ot 786.09 RESPIRATORY ABNORM NEC 05/13/2018 ANA SANTA FACC, ALI FACP CCDS Ot 272.4 HYPERLIPIDEMIA NEC/NOS 05/13/2018 ANA SANTA FACC, ALI FACP CCDS Ot 305.1 TOBACCO USE DISORDER 05/13/2018 ANA SANTA FACC, ALI FACP CCDS Ot 401.9 HYPERTENSION NOS 05/13/2018 ANA SANTA FACC, ALI FACP CCDS Ot 496 CHR AIRWAY OBSTRUCT NEC 05/13/2018 ANA SANTA FACC, ALI FACP CCDS Ot 729.81 SWELLING OF LIMB 05/13/2018 ANA SANTA FACC, ALI FACP CCDS Ot 786.09 RESPIRATORY ABNORM NEC 05/13/2018 KYE SANTA, MACEY Capone Ot R09.89 OTH SYMPTOMS AND SIGNS INVOLVING THE CIR 05/13/2018 GENEANN RAYMOND Prachi RAG BALER Ot E78.5 HYPERLIPIDEMIA, UNSPECIFIED 05/13/2018 ELISSA RAYMOND Prachi RAG BALER Ot I10 ESSENTIAL (PRIMARY) HYPERTENSION 05/13/2018 ELISSA RAYMOND L RAG BALER Ot R22.40 LOCALIZED SWELLING, MASS AND LUMP, UNSPE 05/13/2018 ELISSA RAYMOND L RAG BALER Ot Z72.0 TOBACCO USE 05/13/2018 MACEY FISHMAN MD Ot R74.0 NONSPEC ELEV OF LEVELS OF TRANSAMNS LA 05/13/2018 Ot M62.81 MUSCLE WEAKNESS (GENERALIZED) 05/13/2018 Ot R26.89 OTHER ABNORMALITIES OF GAIT AND MOBILITY 05/13/2018 Ot R41.3 OTHER AMNESIA 05/13/2018 ЕЛЕНА ALEJANDRO APRN Ot F17.210 NICOTINE DEPENDENCE, CIGARETTES, UNCOMPL 05/13/2018 ЕЛЕНА ALEJANDRO APRN Ot J44.9 CHRONIC OBSTRUCTIVE PULMONARY DISEASE, U 05/13/2018 ЕЛЕНА ALEJANDRO APRN Ot R06.09 OTHER FORMS OF DYSPNEA 05/13/2018 RAYMOND BOWERS RAG BALER Ot E78.5 HYPERLIPIDEMIA, UNSPECIFIED 05/13/2018 RAYMOND BOWERS RAG BALER Ot E78.5 HYPERLIPIDEMIA, UNSPECIFIED 05/13/2018 RAYMOND BOWERS RAG BALER Ot I10 ESSENTIAL (PRIMARY) HYPERTENSION 05/13/2018 RAYMOND BOWERS RAG BALER Ot J44.9 CHRONIC OBSTRUCTIVE PULMONARY DISEASE, U 05/13/2018 BAIRAYMOND JUAREZ RAG BALER Ot Z72.0 TOBACCO USE 05/13/2018 KYE SANTA, MACEY Capone Ot F17.210 NICOTINE DEPENDENCE, CIGARETTES, UNCOMPL 05/13/2018 KYE SANTA, MACEY N Ot Z12.2 ENCNTR SCREEN FOR MALIGNANT NEOPLASM OF 05/13/2018 ANA SANTA FACC, ALI FACP CCDS Ot E78.4 OTHER HYPERLIPIDEMIA 05/13/2018 ANA SANTA FACC, ALI FACP CCDS Ot I10 ESSENTIAL (PRIMARY) HYPERTENSION 05/13/2018 ANA SANTA FACC, ALI FACP CCDS Ot J43.8 OTHER EMPHYSEMA 05/13/2018 ANA SANTA FACC, ALI FACP CCDS Ot Z72.0 TOBACCO USE 05/13/2018 KYE SANTA, MACEY N Ot Z72.0 TOBACCO USE 05/15/2018 ЕЛЕНА ALEJANDRO APRN Ot F17.210 NICOTINE DEPENDENCE, CIGARETTES, UNCOMPL 05/15/2018 ЕЛЕНА ALEJANDRO DIABETIC EDUCATOR Ot I25.10 ATHSCL HEART DISEASE OF [place] CORONARY 05/15/2018 ЕЛЕНА ALEJANDRO DIABETIC EDUCATOR Ot I70.0 ATHEROSCLEROSIS OF [place] 05/15/2018 ЕЛЕНА ALEJANDRO DIABETIC EDUCATOR Ot J44.9 CHRONIC OBSTRUCTIVE PULMONARY DISEASE, U 05/15/2018 ЕЛЕНА ALEJANDRO DIABETIC EDUCATOR Ot K76.0 FATTY (CHANGE OF) LIVER, NOT ELSEWHERE C 05/20/2018 ЕЛЕНА ALEJANDRO DIABETIC EDUCATOR Ot F17.210 NICOTINE DEPENDENCE, CIGARETTES, UNCOMPL 05/20/2018 ЕЛЕНА ALEJANDRO DIABETIC EDUCATOR Ot I25.10 ATHSCL HEART DISEASE OF [place] CORONARY 05/20/2018 ЕЛЕНА ALEJANDRO DIABETIC EDUCATOR Ot I70.0 ATHEROSCLEROSIS OF [place] 05/20/2018 ЕЛЕНА ALEJANDRO DIABETIC EDUCATOR Ot J44.9 CHRONIC OBSTRUCTIVE PULMONARY DISEASE, U 05/20/2018 FLAVIAЕЛЕНА DIABETIC EDUCATOR Ot K76.0 FATTY (CHANGE OF) LIVER, NOT ELSEWHERE C 06/09/2018 FLAVIA ЕЛЕНА Ritesh DIABETIC EDUCATOR Ot F17.210 NICOTINE DEPENDENCE, CIGARETTES, UNCOMPL 06/09/2018 FLAVIA ЕЛЕНА Ritesh DIABETIC EDUCATOR Ot I25.10 ATHSCL HEART DISEASE OF [place] CORONARY 06/09/2018 FLAVIA ЕЛЕНА Ritesh DIABETIC EDUCATOR Ot I70.0 ATHEROSCLEROSIS OF [place] 06/09/2018 ЕЛЕНА ALEJANDRO Ritesh DIABETIC EDUCATOR Ot J44.9 CHRONIC OBSTRUCTIVE PULMONARY DISEASE, U 06/09/2018 FLAVIAELMIRAЕЛЕНА Ritesh DIABETIC EDUCATOR Ot K76.0 FATTY (CHANGE OF) LIVER, NOT ELSEWHERE C 09/30/2018 BAIMA, RAYMOND L RAG BALER Ot E78.5 HYPERLIPIDEMIA, UNSPECIFIED 09/30/2018 BAIMA, RAYMOND L RAG BALER Ot I10 ESSENTIAL (PRIMARY) HYPERTENSION 09/30/2018 BAIMA, RAYMOND L RAG BALER Ot R06.09 OTHER FORMS OF DYSPNEA 09/30/2018 BAIMA, RAYMOND L RAG BALER Ot R07.89 OTHER CHEST PAIN 10/05/2018 BAIMA, RAYMOND L RAG BALER Ot E78.5 HYPERLIPIDEMIA, UNSPECIFIED 10/05/2018 BAIMA, RAYMOND L RAG BALER Ot I10 ESSENTIAL (PRIMARY) HYPERTENSION 10/05/2018 BAIMA, RAYMOND L RAG BALER Ot R06.09 OTHER FORMS OF DYSPNEA 10/05/2018 BAIMA, RAYMOND L RAG BALER Ot R07.89 OTHER CHEST PAIN 10/23/2018 BAIMA, RAYMOND L RAG BALER Ot E78.5 HYPERLIPIDEMIA, UNSPECIFIED 10/23/2018 BAIMA, RAYMOND L RAG BALER Ot I10 ESSENTIAL (PRIMARY) HYPERTENSION 10/23/2018 BAIMA, RAYMOND L RAG BALER Ot R06.09 OTHER FORMS OF DYSPNEA 10/23/2018 BAIMA, RAYMOND L RAG BALER Ot R07.89 OTHER CHEST PAIN 11/24/2018 BAIMA, RAYMOND L RAG BALER Ot E78.5 HYPERLIPIDEMIA, UNSPECIFIED 11/24/2018 BAIMA, RAYMOND L RAG BALER Ot I10 ESSENTIAL (PRIMARY) HYPERTENSION 11/24/2018 BAIMA, RAYMOND L RAG BALER Ot R06.09 OTHER FORMS OF DYSPNEA 11/24/2018 BAIMA, RAYMOND L RAG BALER Ot R07.89 OTHER CHEST PAIN 02/12/2019 RAYMOND BOWERS L RAG BALER Ot 305.1 TOBACCO USE DISORDER 02/12/2019 RAYMOND BOWERS L RAG BALER Ot 401.9 HYPERTENSION NOS 02/12/2019 RAYMOND BOWERS L RAG BALER Ot 496 CHR AIRWAY OBSTRUCT NEC 02/12/2019 RAYMOND BOWERS RAG BALER Ot 782.3 EDEMA 02/12/2019 RAYMOND BOWERS L RAG BALER Ot 786.09 RESPIRATORY ABNORM NEC 02/12/2019 CHENCHO HERNANDEZ MD Ot 305.1 TOBACCO USE DISORDER 02/12/2019 CHENCHO HERNANDEZ MD Ot 401.9 HYPERTENSION NOS 02/12/2019 CHENCHO HERNANDEZ MD Ot 496 CHR AIRWAY OBSTRUCT NEC 02/12/2019 CHENCHO HERNANDEZ MD Ot 729.81 SWELLING OF LIMB 02/12/2019 CHENCHO HERNANDEZ MD Ot 786.09 RESPIRATORY ABNORM NEC 02/12/2019 ANA SANTA FACC, ALI FACP CCDS Ot 272.4 HYPERLIPIDEMIA NEC/NOS 02/12/2019 ANA SANTA FACC, ALI FACP CCDS Ot 305.1 TOBACCO USE DISORDER 02/12/2019 ANA SANTA FACC, ALI FACP CCDS Ot 401.9 HYPERTENSION NOS 02/12/2019 AAN SANTA FACC, ALI FACP CCDS Ot 496 CHR AIRWAY OBSTRUCT NEC 02/12/2019 ANA SANTA FACC, ALI FACP CCDS Ot 729.81 SWELLING OF LIMB 02/12/2019 ANA SANTA FACC, ALI FACP CCDS Ot 786.09 RESPIRATORY ABNORM NEC 02/12/2019 MACEY FISHMAN MD Ot R09.89 OTH SYMPTOMS AND SIGNS INVOLVING THE CIR 02/12/2019 RAYMOND BOWERS RAG BALER Ot E78.5 HYPERLIPIDEMIA, UNSPECIFIED 02/12/2019 RAYMOND BOWERS L RAG BALER Ot I10 ESSENTIAL (PRIMARY) HYPERTENSION 02/12/2019 RAYMOND BOWERS L RAG BALER Ot R22.40 LOCALIZED SWELLING, MASS AND LUMP, UNSPE 02/12/2019 RAYMOND BOWERS L RAG BALER Ot Z72.0 TOBACCO USE 02/12/2019 MACEY FISHMAN MD Ot R74.0 NONSPEC ELEV OF LEVELS OF TRANSAMNS LA 02/12/2019 Ot M62.81 MUSCLE WEAKNESS (GENERALIZED) 02/12/2019 Ot R26.89 OTHER ABNORMALITIES OF GAIT AND MOBILITY 02/12/2019 Ot R41.3 OTHER AMNESIA 02/12/2019 ЕЛЕНА ALEJANDRO APRN Ot F17.210 NICOTINE DEPENDENCE, CIGARETTES, UNCOMPL 02/12/2019 ЕЛЕНА ALEJANDRO APRN Ot J44.9 CHRONIC OBSTRUCTIVE PULMONARY DISEASE, U 02/12/2019 ЕЛЕНА ALEJANDRO APRN Ot R06.09 OTHER FORMS OF DYSPNEA 02/12/2019 BAIMARAYMOND RAG BALER Ot E78.5 HYPERLIPIDEMIA, UNSPECIFIED 02/12/2019 BAIMA RAYMOND L RAG BALER Ot E78.5 HYPERLIPIDEMIA, UNSPECIFIED 02/12/2019 BAIMA RAYMOND L RAG BALER Ot I10 ESSENTIAL (PRIMARY) HYPERTENSION 02/12/2019 BAIMARAYMOND RAG BALER Ot J44.9 CHRONIC OBSTRUCTIVE PULMONARY DISEASE, U 02/12/2019 BAIMARAYMOND L RAG BALER Ot Z72.0 TOBACCO USE 02/12/2019 MACEY FISHMAN MD Ot F17.210 NICOTINE DEPENDENCE, CIGARETTES, UNCOMPL 02/12/2019 MACEY FISHMAN MD Ot Z12.2 ENCNTR SCREEN FOR MALIGNANT NEOPLASM OF 02/12/2019 ANA SANTA FACC, ALI FACP CCDS Ot E78.4 OTHER HYPERLIPIDEMIA 02/12/2019 ANA SANTA FACC, ALI FACP CCDS Ot I10 ESSENTIAL (PRIMARY) HYPERTENSION 02/12/2019 ANA SANTA FACC, ALI FACP CCDS Ot J43.8 OTHER EMPHYSEMA 02/12/2019 ANA SANTA FACC, ALI FACP CCDS Ot Z72.0 TOBACCO USE 02/12/2019 MACEY FISHMAN MD Ot Z72.0 TOBACCO USE 02/12/2019 ЕЛЕНА ALEJANDRO APRN Ot F17.210 NICOTINE DEPENDENCE, CIGARETTES, UNCOMPL 02/12/2019 ЕЛЕНА ALEJANDRO APRN Ot I25.10 ATHSCL HEART DISEASE OF [place] CORONARY 02/12/2019 ЕЛЕНА ALEJANDRO APRN Ot I70.0 ATHEROSCLEROSIS OF [place] 02/12/2019 ЕЛЕНА ALEJANDRO APRN Ot J44.9 CHRONIC OBSTRUCTIVE PULMONARY DISEASE, U 02/12/2019 ЕЛЕНА ALEJANDRO APRN Ot K76.0 FATTY (CHANGE OF) LIVER, NOT ELSEWHERE C 02/12/2019 RAYMOND BOWERS RAG BALER Ot E78.5 HYPERLIPIDEMIA, UNSPECIFIED 02/12/2019 RAYMOND BOWERS RAG BALER Ot I10 ESSENTIAL (PRIMARY) HYPERTENSION 02/12/2019 RAYMOND BOWERS RAG BALER Ot R06.09 OTHER FORMS OF DYSPNEA 02/12/2019 RAYMOND BOWERS RAG BALER Ot R07.89 OTHER CHEST PAIN 02/12/2019 KRYSTIN GILMAN APRN Ot Z12.31 ENCNTR SCREEN MAMMOGRAM FOR MALIGNANT NE 03/02/2019 KRYSTIN GILMAN APRN Ot Z12.31 ENCNTR SCREEN MAMMOGRAM FOR MALIGNANT NE 03/03/2019 NAMRATA KYLE DO Ot Z01.818 ENCOUNTER FOR OTHER PREPROCEDURAL EXAMIN 03/03/2019 NAMRATA KYLE DO Ot Z01.818 ENCOUNTER FOR OTHER PREPROCEDURAL EXAMIN Procedures Code [place] [address] PAP SMEAR 07/09/2012 Q0091 PAP SMEAR OBTAIN SMEAR 07/09/2012 Alvarez Caceres 10/19/2012 63653 OXIMETRY 04/13/2014 67177 OXIMETRY 04/20/2014 28118 HEMOCCULT 05/26/2014 40791 HEMOCCULT 05/26/2014 45774 PULMONARY FUNCTION TEST (IN-HOUSE) 07/06/2014 80046 BRONCHODILATION PRE/POST 07/06/2014 88428 RESPIRATORY FLOW VOLUME LOOP 07/06/2014 67301 PULMONARY EDUCATION 07/06/2014 47357 ROUTINE VENIPUNCTURE 11/22/2014 01464 BMP 11/22/2014 40757 OXIMETRY 11/22/2014 2000F BLOOD PRESSURE CHECK 12/05/2014 Results Test Result Range LIPID PANEL - 05/20/18 12:45 CHOLESTEROL, TOTAL 154 mg/dL <200 HDL CHOLESTEROL 41 mg/dL >50 TRIGLYCERIDES 121 mg/dL <150 LDL-CHOLESTEROL 91 mg/dL (calc) NRG CHOL/HDLC RATIO 3.8 (calc) <5.0 NON HDL CHOLESTEROL 113 mg/dL (calc) <130 CMP - 05/20/18 12:45 GLUCOSE 125 mg/dL 65-99 UREA NITROGEN (BUN) 10 mg/dL 7-25 CREATININE 0.62 mg/dL 0.50-0.99 eGFR NON-AFR. SAMOAN 97 mL/min/1.73m2 > OR=60 eGFR 113 mL/min/1.73m2 > OR=60 BUN/CREATININE RATIO NOT APPLICABLE (calc) 6-22 SODIUM 141 mmol/L 135-146 POTASSIUM 5.2 mmol/L 3.5-5.3 CHLORIDE 104 mmol/L 98-110 CARBON DIOXIDE 28 mmol/L 20-32 CALCIUM 9.5 mg/dL 8.6-10.4 PROTEIN, TOTAL 6.6 g/dL 6.1-8.1 ALBUMIN 4.4 g/dL 3.6-5.1 GLOBULIN 2.2 g/dL (calc) 1.9-3.7 ALBUMIN/GLOBULIN RATIO 2.0 (calc) 1.0-2.5 BILIRUBIN, TOTAL 0.5 mg/dL 0.2-1.2 ALKALINE PHOSPHATASE 77 U/L 33-130 AST 29 U/L 10-35 ALT 39 U/L 6-29 CBC - 05/20/18 12:45 WHITE BLOOD CELL COUNT 6.9 Thousand/uL 3.8-10.8 RED BLOOD CELL COUNT 4.37 Million/uL 3.80-5.10 HEMOGLOBIN 14.8 g/dL 11.7-15.5 HEMATOCRIT 43.0 % 35.0-45.0 MCV 98.4 fL 80.0-100.0 MCH 33.9 pg 27.0-33.0 MCHC 34.4 g/dL 32.0-36.0 RDW 11.8 % 11.0-15.0 PLATELET COUNT 211 Thousand/uL 140-400 MPV 11.0 fL 7.5-12.5 ABSOLUTE NEUTROPHILS 4147 cells/uL 9102-7555 ABSOLUTE LYMPHOCYTES 1891 cells/uL 850-3900 ABSOLUTE MONOCYTES 621 cells/uL 200-950 ABSOLUTE EOSINOPHILS 159 cells/uL 15-500 ABSOLUTE BASOPHILS 83 cells/uL 0-200 NEUTROPHILS 60.1 % NRG LYMPHOCYTES 27.4 % NRG MONOCYTES 9.0 % NRG EOSINOPHILS 2.3 % NRG BASOPHILS 1.2 % NRG Comprehensive metabolic panel - 09/29/18 10:35 Serum or plasma sodium measurement (moles/volume) 140 mmol/L 135-145 Serum or plasma potassium measurement (moles/volume) 4.3 mmol/L 3.6-5.0 Serum or plasma chloride measurement (moles/volume) 104 mmol/L 98-107 Carbon dioxide 23 mmol/L 21-32 Serum or plasma anion gap determination (moles/volume) 13 mmol/L 5-14 Serum or plasma urea nitrogen measurement (mass/volume) 8 mg/dL 7-18 Serum or plasma creatinine measurement (mass/volume) 0.72 mg/dL 0.60-1.30 Serum or plasma urea nitrogen/creatinine mass ratio 11 NRG Serum or plasma creatinine measurement with calculation of estimated glomerular filtration rate > NRG Serum or plasma glucose measurement (mass/volume) 106 mg/dL 70-105 Serum or plasma calcium measurement (mass/volume) 9.3 mg/dL 8.5-10.1 Serum or plasma total bilirubin measurement (mass/volume) 0.4 mg/dL 0.1-1.0 Serum or plasma alkaline phosphatase measurement (enzymatic activity/volume) 79 U/L 40-136 Serum or plasma aspartate aminotransferase measurement (enzymatic activity/volume) 36 U/L 5-34 Serum or plasma alanine aminotransferase measurement (enzymatic activity/volume) 46 U/L 0-55 Serum or plasma protein measurement (mass/volume) 6.8 g/dL 6.4-8.2 Serum or plasma albumin measurement (mass/volume) 4.3 g/dL 3.2-4.5 CALCIUM CORRECTED 9.1 mg/dL 8.5-10.1 Lipid 1996 panel - 09/29/18 10:35 Serum or plasma triglyceride measurement (mass/volume) 144 mg/dL <150 Serum or plasma cholesterol measurement (mass/volume) 164 mg/dL < 200 Serum or plasma cholesterol in HDL measurement (mass/volume) 47 mg/dL 40-60 Cholesterol in LDL [mass/volume] in serum or plasma by direct assay 100 mg/dL 1-129 Serum or plasma cholesterol in VLDL measurement (mass/volume) 29 mg/dL 5-40 Encounters ACCT No. Visit Date/Time Discharge Status Pt. Type Provider Facility Loc./Unit Complaint [id number] 12/09/2014 11:51:00 12/09/2014 23:59:59 CLS Outpatient NANCY SEGURA MD [id number] 12/05/2014 14:09:00 12/05/2014 23:59:59 CLS Outpatient SEBASTIÁN SHIELDS DO [id number] 11/22/2014 10:56:00 11/22/2014 23:59:59 CLS Outpatient MACEY FISHMAN MD [id number] 11/17/2014 11:26:00 11/17/2014 23:59:59 CLS Outpatient MACEY FISHMAN MD N [id number] 07/06/2014 11:21:00 07/06/2014 23:59:59 CLS Outpatient MACEY FISHMAN MD N [id number] 05/26/2014 14:32:00 05/26/2014 23:59:59 CLS Outpatient MACEY FISHMAN MD [id number] 05/24/2014 09:25:00 05/24/2014 23:59:59 CLS Outpatient MACEY FISHMAN MD N [id number] 04/20/2014 11:25:00 04/20/2014 23:59:59 CLS Outpatient VICTORINA LECHUGA APRNNYGarland Velarde [id number] 04/13/2014 10:25:00 04/13/2014 23:59:59 CLS Outpatient MACEY FISHMAN MD [id number] 11/02/2012 09:57:00 11/02/2012 23:59:59 CLS Outpatient NAYELY GARCIA MD [id number] 10/19/2012 14:15:00 10/19/2012 23:59:59 CLS Outpatient SEBASTIÁN SHIELDS DO [id number] 10/15/2012 09:42:00 10/15/2012 23:59:59 CLS Outpatient [id number] 08/13/2012 14:11:00 08/13/2012 23:59:59 CLS Outpatient [id number] 07/09/2012 10:07:41 07/09/2012 23:59:59 CLS Outpatient SEBASTIÁN SHIELDS DO [id number] 07/09/2012 09:50:00 07/09/2012 23:59:59 CLS Outpatient [id number] 01/18/2019 14:00:00 01/18/2019 23:59:59 CLS Outpatient KRYSTIN GILMAN [facility] [id number] 05/20/2018 12:40:00 Document Registration [id number] 03/03/2019 10:40:00 03/03/2019 11:11:00 DIS Outpatient NAMRATA KYLE DO [facility] PREOP COLONOSCOPY [id number] 02/05/2019 12:28:00 02/05/2019 23:59:59 CLS Outpatient KRYSTIN GILMAN DIABETIC EDUCATOR [facility] RAD SCREENING [id number] 09/29/2018 10:23:00 09/29/2018 23:59:59 CLS Outpatient RAYMOND BOWERS [facility] CARD PALACIO [id number] 05/27/2018 13:06:00 05/27/2018 23:59:59 CLS Preadmit ЕЛЕНА ALEJANDRO DIABETIC EDUCATOR [facility] RAD COPD [id number] 05/27/2018 11:47:00 05/27/2018 23:59:59 CLS Preadmit ЕЛЕНА ALEJANDRO E DIABETIC EDUCATOR [facility] RAD COPD [id number] 05/14/2018 13:10:00 05/14/2018 23:59:59 CLS Outpatient ЕЛЕНА ALEJANDRO DIABETIC EDUCATOR [facility] RAD COPD [id number] 06/02/2017 13:44:00 06/02/2017 23:59:59 CLS Outpatient MACEY FISHMAN MD [facility] RAD Z72.0 TOBACCO USE [id number] 05/19/2017 12:24:00 05/19/2017 23:59:59 CLS Preadmit MACEY FISHMAN MD [facility] RAD SCREENING [id number] 05/15/2017 09:38:00 05/15/2017 23:59:59 CLS Preadmit RAYMOND BOWERS [facility] RAD CAROTID ARTERIAL DISEASE [id number] 05/05/2017 10:23:00 05/05/2017 23:59:59 CLS Outpatient ANA SANTA FACC, AYAKA CROWLEY CCDS [facility] LAB J43.8 E78.4 I10 Z72.0 [id number] 01/22/2017 13:13:00 01/22/2017 23:59:59 CLS Outpatient MACEY FISHMAN MD [facility] RAD SCREENING [id number] 08/07/2016 11:48:00 08/07/2016 23:59:59 CLS Outpatient RAYMOND BOWERS [facility] LAB HLP,HTN,COPD,TOBACCO USER [id number] 02/18/2016 21:00:00 02/20/2016 16:40:00 DIS Outpatient FELISHA ROGERS MD [facility] CATH CHEST PAIN [id number] 01/16/2016 09:22:00 01/16/2016 23:59:59 CLS Outpatient RAYMOND BOWERS [facility] LAB HYPERLIPIDEMIA [id number] 11/29/2015 11:38:00 11/29/2015 23:59:59 CLS Outpatient ЕЛЕНА ALEJANDRO APRN [facility] RT COPD,DYPSNEA ON EXERTION,TOBACCO USER [id number] 11/16/2015 13:25:00 11/16/2015 14:01:00 DIS Outpatient STEFANIE WILSON DO [facility] SLEEP CHOKING IN SLEEP, HPN, EDS, MOOD DISORDER [id number] 11/06/2015 09:05:00 11/06/2015 23:59:59 CLS Outpatient MACEY FISHMAN MD [facility] RAD ELEVATED ALT [id number] 11/02/2015 09:34:00 11/02/2015 23:59:59 CLS Preadmit MACEY FISHMAN MD [facility] REHAB [id number] 08/14/2015 08:50:00 08/14/2015 23:59:59 CLS Outpatient MACEY FISHMAN MD [facility] RAD NON PALPABLE LEFT PEDAL PULSE [id number] 08/07/2015 10:48:00 08/07/2015 23:59:59 CLS Outpatient RAYMOND BOWERS [facility] LAB HTN,HLD [id number] 02/23/2015 10:17:00 02/23/2015 23:59:59 CLS Outpatient ANA SANTA FACC, AYAKA CROWLEY CCDS [facility] LAB COPD,PALACIO,HTN,LEG SWELLING,TOBACCO USER,HYPERLIPID [id number] 12/29/2014 08:44:00 12/29/2014 23:59:59 CLS Outpatient CHENCHO HERNANDEZ MD [facility] LAB LEG SWELLING,HTN,COPD,PALACIO [id number] 12/02/2014 13:01:00 12/02/2014 17:40:00 DIS Emergency JUSTINE MULLER [facility] ER WEAKNESS [id number] 12/01/2014 13:48:00 12/01/2014 23:59:59 CLS Outpatient RAYMOND BOWERS [facility] RAD EDEMA [id number] 11/21/2014 13:46:00 11/21/2014 16:42:00 DIS Emergency JUSTINE MULLER [facility] ER WEAKNESS/LETHARGIC [id number] 11/05/2014 20:34:00 11/07/2014 20:00:00 DIS Inpatient KYE SANTA, MACEY Capone [facility] CSD [id number] 05/25/2013 10:22:00 05/26/2013 11:40:00 DIS Outpatient JEAN PIERRE MCCAULEY DO [facility] SDC CYSTOCELE [id number] 05/19/2013 11:24:00 05/19/2013 23:59:59 CLS Outpatient JEAN PIERRE MCCAULEY DO [facility] PREOP CYSTOCELE [id number] 03/09/2019 11:30:00 PEN Preadmit NAMRATA KYLE DO [facility] ENDO CHANGE IN STOOLS [id number] 11/09/2015 08:02:00 Document Registration [id number] 09/23/2012 13:36:00 Document Registration [id number] 09/14/2012 12:57:00 Document Registration
[2019-03-09] MEDS ORDERED: CLOP75TA69 PO (09:02)
[2019-03-09] MEDS ORDERED: PROPOFOL INJECTION 50 ML IV ONE (09:22)
[2019-03-09] MEDS ORDERED: MIDAZOLAM 2 MG/2 ML (VERSED) VIAL ONE (09:22)
--- NOTE | 2019-03-09 09:54 | Progress Note-Post Operative ---
Post-Operative Progess Note Surgeon (s)/Director Of Cardiology Service Line (s) Surgeon NAMRATA KYLE DO Director Of Cardiology Service Line: na Pre-Operative Diagnosis incontinence of stools, change in stools Post-Operative Diagnosis diverticulosis Procedure & Operative Findings Date of Procedure 03/09/19 Procedure Performed/Findings colonoscopy Anesthesia Type per flagger Estimated Blood Loss Estimated blood loss (mL): none Specimens/Packing Specimens Removed na NAMRATA KYLE DO Mar 09, 2019 09:54
--- NOTE | 2019-03-09 09:57 | Discharge Inst-Simple/Standard ---
Discharge Inst-Standard Patient Instructions/Follow Up Plan of Care/Instructions/FU: 3 weeks Sander. Citracil daily as instructed. high fiber diet Activity as Tolerated: Yes Discharge Diet: Regular Diet (high fiber) NAMRATA KYLE DO Mar 09, 2019 09:57
--- NOTE | 2019-03-09 14:10 | Anesthesia-General Post-Op ---
MAC Patient Condition Mental Status/LOC: Same as Preop Cardiovascular: Satisfactory Nausea/Vomiting: Absent Respiratory: Satisfactory Pain: Controlled Complications: Absent Post Op Complications Complications None Follow Up Care/Instructions Patient Instructions None needed. Anesthesiology Discharge Order Discharge Order Patient was seen this morning after the procedure and she was doing well, no complaints, stable vital signs, no apparent adverse anesthesia problems. DAMIAN TROY DO Mar 09, 2019 14:10
--- NOTE | 2019-03-09 15:07 | OPERATIVE REPORT ---
DATE OF SERVICE: 03/09/2019 PREOPERATIVE DIAGNOSES: Incontinence of stools, change in stools. POSTOPERATIVE DIAGNOSIS: Diverticulosis. PROCEDURE: Colonoscopy. SURGEON: Namrata Boucher DO ANESTHESIA: Per LIVING NURSE. ESTIMATED BLOOD LOSS: None. COMPLICATIONS: None. INDICATIONS: The patient is a 63-year-old female with incontinence of stools and change in stools. She understands risks and benefits of procedure and wished to proceed with procedure. Consent was signed in the chart. DESCRIPTION OF PROCEDURE: The patient was taken to the endoscopy suite, placed in left lateral recumbent position. Timeout was performed. Digital rectal exam was performed. There were no palpable polyps, masses or ulcerations. Good rectal tone. No gross blood. Scope was inserted in the rectum and advanced all the way to cecum with minimal difficulty. Prep was adequate with irrigation and suction. Scope was then slowly retracted back. There were no polyps, masses or ulcerations within the cecum, ascending, transverse, descending colon. In the sigmoid colon, moderate amount of diverticulosis present. No polyps, masses or ulcerations. Once in the rectum, scope was retroflexed noting no other pathology. Scope was returned to its normal position, slowly withdrawn until completely removed. The patient tolerated procedure well without any complications, taken to recovery room in stable condition. RECOMMENDATIONS: The patient to have high fiber diet. We consider biofeedback, physical therapy. We will have the patient to follow up in 2 weeks. Any issues before that, will be seen at that time. Job ID: [id number] DocumentID: [id number] Dictated Date: 03/09/2019 10:00:36 Dealer Card Room Date: 03/09/2019 15:06:46 Dictated By: NAMRATA BOUCHER DO
== END 2019-03-09 11:00 | disposition home or self-care (01) ==
LOC: ENDO 08:31
PROVIDERS: ATTEND Surgery
DX: K57.30 Diverticulosis of large intestine without perforation or abscess without bleeding (principal); I10 Essential (primary) hypertension; J44.9 Chronic obstructive pulmonary disease, unspecified; F32.9 Major depressive disorder, single episode, unspecified; F17.210 Nicotine dependence, cigarettes, uncomplicated; Z99.81 Dependence on supplemental oxygen; Z79.899 Other long term (current) drug therapy; Z79.82 Long term (current) use of aspirin; Z79.02 Long term (current) use of antithrombotics/antiplatelets; Z88.5 Allergy status to narcotic agent

== ENCOUNTER 2019-04-27 13:40 | Outpatient (RCR) | payer MEDICARE, MEDICAID, OTHER ==
[~2019-04-27 13:40] MED LIST changes: +CLOP75TA69 PO
== END 2019-04-27 14:04 | disposition home or self-care (01) ==
PROVIDERS: ATTEND Surgery
DX: R15.9 Full incontinence of feces (principal)

== ENCOUNTER → 2019-05-18 | Outpatient (CLI) | payer MEDICARE, MEDICAID ==
--- NOTE | 2019-05-18 13:53 | Diagnostic Imaging Report ---
PROCEDURE: MRI lumbar spine. TECHNIQUE: Multiplanar, multisequence MRI of the lumbar spine was performed without contrast. INDICATION: Low back pain. Right sided sciatica. COMPARISON: None. FINDINGS: Examination is mildly limited by motion. Normal alignment. Vertebral body heights are preserved. Normal bone marrow signal. Small annular disc bulge at L3-L4 results in mild bilateral lateral recess narrowing. The intervertebral discs are otherwise well-preserved. There is no high-grade spinal canal, lateral recess or neural foraminal narrowing throughout the lumbar spine. No abnormal signal in the conus which terminates at L1. Normal morphology of the cauda equina. The visualized abdominal and pelvic contents are unremarkable. IMPRESSION: Mild spondylotic changes in the lumbar spine are greatest at L3-L4 where there is a small annular disc bulge. There is no high-grade neural impingement. No acute osseous findings. Dictated by: Dictated on workstation # [id number]
== END ==
LOC: RAD 12:05
PROVIDERS: ATTEND Nurse Practitioner Primary Care
DX: M47.816 Spondylosis without myelopathy or radiculopathy, lumbar region (principal); M51.16 Intervertebral disc disorders with radiculopathy, lumbar region; N31.9 Neuromuscular dysfunction of bladder, unspecified; K59.9 Functional intestinal disorder, unspecified
CPT/HCPCS: 72148

== ENCOUNTER → 2019-05-31 | Outpatient (CLI) | payer MEDICARE, MEDICAID ==
[~2019-05-31] MED LIST changes: +RT-ALBUTEROL SULF 2.5 MG/3 ML PRE-MIX VIAL INH ONE; +RT-ALBUTEROL SULF 2.5 MG/3 ML PRE-MIX VIAL ONE
== END ==
LOC: RAD 08:25
PROVIDERS: ATTEND Nurse Practitioner Family
DX: J44.9 Chronic obstructive pulmonary disease, unspecified (principal); Z72.0 Tobacco use
CPT/HCPCS: 94060; 94640; 94726; 94729

== ENCOUNTER → 2019-07-12 | Outpatient (CLI) | payer MEDICARE, MEDICAID ==
[~2019-07-12] MED LIST changes: +GADOBUTROL 7.5 MMOL/7.5 ML (GADAVIST) VIAL IV ONE; -RT-ALBUTEROL SULF 2.5 MG/3 ML PRE-MIX VIAL INH ONE; -RT-ALBUTEROL SULF 2.5 MG/3 ML PRE-MIX VIAL ONE
[2019-07-12 14:50] LABS: BUN/CREATININE RATIO 14; CREATININE SERUM 0.74 MG/DL (0.60-1.30); GFR ESTIMATED > 60
--- NOTE | 2019-07-12 15:36 | Diagnostic Imaging Report ---
CLINICAL INDICATION: Patient with low back pain, chronic degenerative disease of the lumbar spine. Patient has history of cervical spine fusion. EXAM: X-ray of the cervical spine, lateral flexion and extension views only. COMPARISON: None. FINDINGS: There is no acute cervical spine fracture or dislocation. Flexion and extension views of the cervical spine show no significant subluxation. There are moderately hypertrophic spurs anteriorly throughout the cervical spine and mild facet arthropathy. There is mild loss of intervertebral disc height at the C4-C5 level. There is no prevertebral soft tissue swelling. There is solid intervertebral bony bridging/fusion at the C5-C6 intervertebral region. There is no hardware present. IMPRESSION: 1: There is multilevel cervical spine degenerative disease, as described above. There is no significant motion of the cervical spine on flexion-extension views. 2: Bony bridging/fusion of the C5-C6 vertebrae. Dictated by: Dictated on workstation # [id number]
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
== END ==
LOC: RAD 14:18
PROVIDERS: ATTEND Nurse Practitioner
DX: M50.321 Other cervical disc degeneration at C4-C5 level (principal); M48.02 Spinal stenosis, cervical region; M51.36 Other intervertebral disc degeneration, lumbar region; F17.210 Nicotine dependence, cigarettes, uncomplicated; Z98.1 Arthrodesis status
CPT/HCPCS: 36415; 72040; 72156; 82565; 84520

== ENCOUNTER → 2019-10-19 | Outpatient (CLI) | payer MEDICARE, MEDICAID ==
[2019-10-19 12:47] LABS: ALANINE AMINOTRANSFERASE 35 U/L (0-55); ALKALINE PHOSPHATASE 90 U/L (40-136); BILIRUBIN,TOTAL 0.4 MG/DL (0.1-1.0); BUN/CREATININE RATIO 11; CALCIUM 8.6 MG/DL (8.5-10.1); CARBON DIOXIDE 23 MMOL/L (21-32); CHLORIDE 106 MMOL/L (98-107); GFR ESTIMATED > 60; GLUCOSE 131 MG/DL (70-105); POTASSIUM 4.3 MMOL/L (3.6-5.0); SODIUM 139 MMOL/L (135-145); TOTAL PROTEIN 6.4 GM/DL (6.4-8.2)
--- NOTE | 2019-10-19 14:12 | Diagnostic Imaging Report ---
PROCEDURE: MR imaging of the brain with and without contrast. TECHNIQUE: Multiplanar, multisequence MR imaging of the brain was performed with and without contrast. INDICATION: Numbness and tingling of the head as well as headaches. Correlation is made with prior MRI of the brain from 11/09/2015. FINDINGS: Ventricular size and sulcal pattern are stable. Small white matter lesion in the left centrum semiovale appears stable when compared with prior exam. Smaller lesions more cephalad in the high right and left frontoparietal lobes are stable. No diffusion restriction is seen to suggest acute ischemia. Normal expected flow voids within the carotid siphons are noted. No acute intra-axial or extra-axial hemorrhage is detected. Corpus callosum is unremarkable. The sella and parasellar structures are unremarkable. No abnormal enhancement is identified following contrast administration. IMPRESSION: Stable MRI of the brain with and without contrast when compared with exam from 11/09/2015. No acute feature is detected. Dictated by: Dictated on workstation # [id number]
== END ==
LOC: RAD 11:51
PROVIDERS: ATTEND Nurse Practitioner Primary Care
DX: G44.52 New daily persistent headache (NDPH) (principal); R20.0 Anesthesia of skin; R73.09 Other abnormal glucose
CPT/HCPCS: 36415; 70553; 80053

== ENCOUNTER 2020-01-08 20:39 | Emergency (ER) | payer MEDICARE, MEDICAID ==
[~2020-01-08] VITALS: Ht 160 cm; Wt 68.0 kg
[~2020-01-08 20:39] MED LIST changes: -GADOBUTROL 7.5 MMOL/7.5 ML (GADAVIST) VIAL IV ONE
[2020-01-08] MEDS ORDERED: LIDOCAINE 1% INJ 20 ML 20 ML VIAL INJ ONE (21:15)
[2020-01-08] MEDS ORDERED: cefTRIAXone 1,000 MG/2.86 ml vial (IM ONLY) IM SCH (21:15)
[2020-01-08] MEDS ORDERED: DEXAMETHASONE 10 MG/ML (DECADRON) 1 ML VIAL IM ONE (21:15)
[2020-01-08] MEDS ORDERED: AMOX500C2 PO (21:19)
--- NOTE | 2020-01-08 21:19 | ED EENT ---
History of Present Illness General Chief Complaint: Ear Problems Stated Complaint: EAR PRESSURE, EAR PAIN Source: patient Exam Limitations: no limitations History of Present Illness Date Seen by Provider: January 08, 2020 Time Seen by Provider: 21:16 Initial Comments To ER with right ear pain and pressure onset yesterday no other symptoms. Timing/Duration: abrupt Severity: moderate Allergies and Home Medications Allergies Coded Allergies: codeine (Verified Allergy, Mild, HIVES, 03/03/19) Home Medications Albuterol Sulfate 6.7 Gm Hfa.aer.ad, 2 PUFF IH Q4H PRN for SHORTNESS OF BREATH, (Reported) LAST FILLED 11/21/15 Albuterol Sulfate 2.5 Mg/3 Ml Vial.neb, 2.5 MG IH EVERY 4-6 HOURS PRN for SHORTNESS OF BREATH, (Reported) Aspirin 81 Mg Tablet.dr, 81 MG PO HS, (Reported) Clopidogrel Bisulfate 75 Mg Tablet, 75 MG PO DAILY, (Reported) Fluticasone/Vilanterol 1 Each Blst.w.dev, 1 EACH IH DAILY, (Reported) Lisinopril 20 Mg Tablet, 20 MG PO DAILY, (Reported) Lovastatin 40 Mg Tablet, 40 MG PO HS, (Reported) Metoprolol Tartrate 25 Mg Tablet, 25 MG PO BID, (Reported) Tiotropium [place] 4 Gm Mist.inhal, 2 PUFF IH DAILY, (Reported) Patient Home Medication List Home Medication List Reviewed: Yes Review of Systems Review of Systems Constitutional: see HPI Eyes: No Symptoms Reported Ears: See HPI Nose: no symptoms reported Mouth: no symptoms reported Throat: no symptoms reported Respiratory: no symptoms reported Cardiovascular: no symptoms reported Musculoskeletal: no symptoms reported Past Qnkktiu-Kkdjdy-Olgata Hx Patient Social History Type Used: Cigarettes 2nd Hand Smoke Exposure: Yes Recent Foreign Travel: No Contact w/Someone Who Travel: No Recent Hopitalizations: No Immunizations Up To Date Tetanus Booster (TDap): More than 5yrs Date of Pneumonia Vaccine: Sep 28, 2010 Date of Influenza Vaccine: May 18, 2012 Seasonal Allergies Seasonal Allergies: Yes Past Medical History Surgeries: Yes (BACK SURGERIES, LEFT CAROTID) Appendectomy, Bladder Surgery, Gallbladder, Hysterectomy, Tonsillectomy Respiratory: Yes (2L NC AT NIGHT ) Sleep Apnea, COPD Currently Using CPAP: No Currently Using BIPAP: No Cardiac: Yes High Cholesterol, Hypertension Neurological: No 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 Disorders: Yes (PELVIC PROLAPSE) [employer] History: Hysterectomy Sexually Transmitted Disease: No HIV/AIDS: No Genitourinary: No Gastrointestinal: Yes Chronic Diarrhea, Irritable Bowel Musculoskeletal: Yes (herniated disk in lower back) Back Injury, Chronic Back Pain Endocrine: No HEENT: Yes (GLASSES, DENTURES) Loss of Vision: Denies Hearing Impairment: Denies Cancer: No Psychosocial: Yes (no meds for it) Depression Integumentary: No Blood Disorders: No Adverse Reaction/Blood Tranf: No (N/A) Family Medical History Cardiovascular disease 19 FATHER 19 MOTHER Diabetes mellitus 19 FATHER 19 MOTHER Myocardial infarction 19 FATHER Heart Disease, Diabetes Physical Exam Height, Weight, BMI Height: 5'3.00" Weight: 153lbs. 6.0oz. 69.164648ld; 27.2 BMI Method:Stated General Appearance: WD/WN, no apparent distress Eyes: bilateral eye normal inspection, bilateral eye PERRL, bilateral eye EOMI Ears: right ear other (right tympanic membrane erythematous and bulging); left ear TM normal; bilateral ear auricle normal, bilateral ear canal normal Mouth/Throat: normal mouth inspection, pharynx normal Neck: non-tender, full range of motion Respiratory: no respiratory distress, no accessory muscle use Gastrointestinal: normal bowel sounds, soft Neurologic/Psychiatric: alert, normal mood/affect, oriented x 3 Skin: normal color, warm/dry Progress/Results/Core Measures Results/Orders My Orders Orders - ROSIE YOUNG APRN Ceftriaxone For Im Use (Rocephin For Im (01/08/20 21:15) Dexamethasone Injection (Decadron Inject (01/08/20 21:15) Lidocaine 1% Inj 20 Ml (Xylocaine 1% Inj (01/08/20 21:15) Departure Impression Primary Impression: Otitis media Disposition: HOME, SELF-CARE Condition: Stable Departure-Patient Inst. Decision time for Depature: 21:17 Referrals: [facility] (PCP) Primary Care Physician KRYSTIN GILMAN APRN (Family) Primary Care Physician Patient Instructions: NO INSTRUCTIONS GIVEN Add. Discharge Instructions: 1. Return here for any concerns 2. Follow-up with your doctor next week 3. Antibiotic as directed All discharge instructions reviewed with patient and/or family. Voiced understanding. Scripts Amoxicillin (Amoxicillin) 500 Mg Capsule 500 MG PO TID, #21 CAP 0 Refills Prov: ROSIE YOUNG APRN 01/08/20 ROSIE YOUNG APRN January 08, 2020 21:19
[2020-01-08 21:58] VITALS: BP 129/77
== END 2020-01-08 21:59 | disposition home or self-care (01) ==
LOC: EDUNIT# 20:39 → ER 20:41
DX: H66.91 Otitis media, unspecified, right ear (principal); J44.9 Chronic obstructive pulmonary disease, unspecified; I10 Essential (primary) hypertension; E78.00 Pure hypercholesterolemia, unspecified; Z88.5 Allergy status to narcotic agent; Z79.82 Long term (current) use of aspirin; Z79.02 Long term (current) use of antithrombotics/antiplatelets; Z79.51 Long term (current) use of inhaled steroids; Z77.22 Contact with and (suspected) exposure to environmental tobacco smoke (acute) (chronic); Z82.49 Family history of ischemic heart disease and other diseases of the circulatory system
CPT/HCPCS: 96372; 99284

== ENCOUNTER → 2020-02-24 | Outpatient (CLI) | payer MEDICARE, MEDICAID ==
[~2020-02-24] MED LIST changes: +AMOX500C2 PO
[2020-02-24 11:10] LABS: BASOPHILS % (AUTO) 1 % (0-10); EOSINOPHILS # (AUTO) 0.1 10^3/uL (0.0-0.3); EOSINOPHILS % (AUTO) 2 % (0-10); HEMATOCRIT 41 % (35-52); HEMOGLOBIN 14.3 G/DL (11.5-16.0); LYMPHOCYTES % (AUTO) 35 % (12-44); MEAN CORPUSCULAR HEMOGLOBIN 34 PG (25-34); MEAN CORPUSCULAR HGB CONC 35 G/DL (32-36); MEAN CORPUSCULAR VOLUME 98 FL (80-99); MEAN PLATELET VOLUME 10.3 FL (7.4-10.4); MONOCYTES # (AUTO) 0.5 X 10^3 (0.0-1.0); MONOCYTES % (AUTO) 8 % (0-12); NEUTROPHILS % (AUTO) 54 % (42-75); PLATELET COUNT 212 10^3/uL (130-400); RED CELL DISTRIBUTION WIDTH 12.2 % (10.0-14.5); WHITE BLOOD COUNT 5.6 10^3/uL (4.3-11.0)
[2020-02-24 11:40] LABS: ALANINE AMINOTRANSFERASE 61 U/L (0-55); ALBUMIN 4.3 GM/DL (3.2-4.5); ALKALINE PHOSPHATASE 92 U/L (40-136); BILIRUBIN,TOTAL 0.6 MG/DL (0.1-1.0); BUN/CREATININE RATIO 14; CALCIUM 8.9 MG/DL (8.5-10.1); CARBON DIOXIDE 24 MMOL/L (21-32); CHLORIDE 106 MMOL/L (98-107); CHOLESTEROL 173 MG/DL (< 200); CREATININE SERUM 0.66 MG/DL (0.60-1.30); GFR ESTIMATED > 60; GLUCOSE 111 MG/DL (70-105); HDL CHOLESTEROL 58 MG/DL (40-60); POTASSIUM 4.3 MMOL/L (3.6-5.0); SODIUM 140 MMOL/L (135-145); TOTAL PROTEIN 6.9 GM/DL (6.4-8.2); TRIGLYCERIDES 143 MG/DL (<150); VLDL CHOLESTEROL 29 MG/DL (5-40)
== END ==
LOC: LAB 10:52
PROVIDERS: ATTEND Physician Assistant
DX: E78.00 Pure hypercholesterolemia, unspecified (principal); I10 Essential (primary) hypertension
CPT/HCPCS: 36415; 80053; 80061; 85025

== ENCOUNTER → 2020-06-01 | Outpatient (CLI) | payer MEDICARE, MEDICAID ==
[~2020-06-01] MED LIST changes: +ASPI-1238 PO; -ASPI-983 PO
--- NOTE | 2020-06-01 15:45 | Diagnostic Imaging Report ---
EXAMINATION: CT Chest without contrast (lung screening). TECHNIQUE: Multiple contiguous axial images were obtained through the chest without the use of intravenous contrast according to lung cancer screening protocol. All CT scans use one or more of the following dose optimizing techniques: automated exposure control, MA and/or KvP adjustment based on a patient size and exam type, or iterative reconstruction. HISTORY: [id number]-srii history of smoking. COMPARISON: 05/14/2018. FINDINGS: There is no edema or pneumonia. No pleural effusion. No pneumothorax. There is a stable 7 mm groundglass nodule in the left upper lobe. There is no axillary or supraclavicular lymphadenopathy. There is no mediastinal lymphadenopathy. Heart size is normal. There are mild coronary artery calcifications. No pericardial effusion. Aorta is normal in caliber. Limited views of the upper abdomen show hepatic steatosis and absent gallbladder. There are no suspicious osseous lesions. IMPRESSION: 1. No suspicious pulmonary nodules. 2. Hepatic steatosis. LUNG-RADS CATEGORY: 2 MODIFIER: None. Dictated by: Dictated on workstation # [id number]
== END ==
LOC: RAD 14:53
PROVIDERS: ATTEND Nurse Practitioner Family
DX: K76.0 Fatty (change of) liver, not elsewhere classified (principal); Z72.0 Tobacco use

== ENCOUNTER 2020-12-19 18:49 | Emergency (ER) | payer MEDICARE, MEDICAID ==
[~2020-12-19] VITALS: Ht 165 cm; Wt 68.0 kg
[~2020-12-19 18:49] MED LIST changes: -LISI-552 PO; +LISI20TA26 PO
[2020-12-19] MEDS ORDERED: diphenhydrAMINE 50 MG/ML INJ (BENADRYL) IVP ONE (19:15)
[2020-12-19] MEDS ORDERED: cloNIDine 0.1 MG (CATAPRES) TAB PO ONE ×2 (19:15→20:45)
[2020-12-19] MEDS ORDERED: KETOROLAC 30 MG/ML VIAL IVP ONE (19:15)
[2020-12-19] MEDS ORDERED: PROCHLORPERAZINE 10 MG/2ML INJ (COMPAZINE) IV ONE (19:15)
--- NOTE | 2020-12-19 19:15 | ED General ---
General Stated Complaint: HEAD TINGLING/TEMPORAL PAIN/BLURRED VISION Source of Information: Patient Exam Limitations: No Limitations History of Present Illness Date Seen by Provider: December 19, 2020 Time Seen by Provider: 19:13 Initial Comments To ER with reports of a left-sided temporal headache for 1 week. She has some tearing of the left eye when this headache is intense. No fevers or chills. History of a left carotid endarterectomy and is scheduled to follow with Dr. Harper for a right sided evaluation. She has numbness from the back of her head radiating to the front. Timing/Duration: 1-2 Days Severity: Moderate Associated Systoms: Headaches Allergies and Home Medications Allergies Coded Allergies: codeine (Verified Allergy, Mild, HIVES, 03/03/19) Home Medications Albuterol Sulfate 6.7 Gm Hfa.aer.ad, 2 PUFF IH Q4H PRN for SHORTNESS OF BREATH, (Reported) LAST FILLED 11/21/15 Albuterol Sulfate 2.5 Mg/3 Ml Vial.neb, 2.5 MG IH EVERY 4-6 HOURS PRN for SHORTNESS OF BREATH, (Reported) Amoxicillin 500 Mg Capsule, 500 MG PO TID Prescribed by: ROSIE YOUNG on 01/08/202118 Aspirin 81 Mg Tablet.dr, 81 MG PO HS, (Reported) Clopidogrel Bisulfate 75 Mg Tablet, 75 MG PO DAILY, (Reported) Fluticasone/Vilanterol 1 Each Blst.w.dev, 1 EACH IH DAILY, (Reported) Lisinopril 20 Mg Tablet, 20 MG PO DAILY, (Reported) Lovastatin 40 Mg Tablet, 40 MG PO HS, (Reported) Metoprolol Tartrate 25 Mg Tablet, 25 MG PO BID, (Reported) Tiotropium [place] 4 Gm Mist.inhal, 2 PUFF IH DAILY, (Reported) Patient Home Medication List Home Medication List Reviewed: Yes Review of Systems Review of Systems Constitutional: see HPI EENTM: see HPI Respiratory: no symptoms reported Cardiovascular: no symptoms reported Genitourinary: no symptoms reported Musculoskeletal: no symptoms reported Skin: no symptoms reported Psychiatric/Neurological: See HPI, Headache Hematologic/Lymphatic: No Symptoms Reported Past Cxnzikj-Jhhanv-Qcziqk Hx Patient Social History Alcohol Beverage of Choice: Wine Type Used: Cigarettes 2nd Hand Smoke Exposure: Yes Recent Hopitalizations: No Immunizations Up To Date Tetanus Booster (TDap): More than 5yrs Date of Pneumonia Vaccine: Sep 28, 2010 Date of Influenza Vaccine: May 18, 2012 Seasonal Allergies Seasonal Allergies: Yes Past Medical History Surgeries: Yes (BACK SURGERIES, LEFT CAROTID) Appendectomy, Bladder Surgery, Gallbladder, Hysterectomy, Tonsillectomy Respiratory: Yes (2L NC AT NIGHT ) Sleep Apnea, COPD, Emphysema Currently Using CPAP: No Currently Using BIPAP: No Cardiac: Yes High Cholesterol, Hypertension Neurological: No 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 Disorders: 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 Sexually Transmitted Disease: No HIV/AIDS: No Genitourinary: No Gastrointestinal: Yes Chronic Diarrhea, Irritable Bowel Musculoskeletal: Yes (herniated disk in lower back) Back Injury, Chronic Back Pain Endocrine: No HEENT: Yes (GLASSES, DENTURES) Loss of Vision: Denies Hearing Impairment: Denies Cancer: No Psychosocial: Yes (no meds for it) Depression Integumentary: No Blood Disorders: No Adverse Reaction/Blood Tranf: No (N/A) Family Medical History Cardiovascular disease 19 FATHER 19 MOTHER Diabetes mellitus 19 FATHER 19 MOTHER Myocardial infarction 19 FATHER Heart Disease, Diabetes Physical Exam Vital Signs Vital Signs - First Documented 12/19/20 19:04 Temp 36.6 Pulse 89 Resp 18 B/P (MAP) 204/92 (129) Pulse Ox 95 O2 Delivery Room Air Capillary Refill : Height, Weight, BMI Height: 5'3.00" Weight: 153lbs. 6.0oz. [id number]; 26.00 BMI Method:Stated General Appearance: No Apparent Distress, WD/WN, Other (No right-sided carotid bruit is noted. Pupils are equal. Nipples are reactive. There is no rash to left side of the face to suggest a herpes zoster lesion. Tympanic membrane's are normal.) Eyes: Bilateral Eye Normal Inspection, Bilateral Eye PERRL, Bilateral Eye EOMI HEENT: PERRL/EOMI, TMs Normal Neck: Full Range of Motion, Normal Inspection Respiratory: No Accessory Muscle Use, No Respiratory Distress Cardiovascular: Regular Rate, Rhythm, Normal Peripheral Pulses Gastrointestinal: Normal Bowel Sounds, Non Tender, Soft Extremity: Normal Capillary Refill, Normal Inspection, Other (1+ bilateral lower extremity) Neurologic/Psychiatric: Alert, Oriented x3 Skin: Normal Color, Warm/Dry Progress/Results/Core Measures Suspected Sepsis SIRS Temperature: Pulse: Respiratory Rate: Laboratory Tests 12/19/20 19:18: White Blood Count 8.7 Blood Pressure / Mean: Laboratory Tests 12/19/20 19:18: Creatinine 0.73, Platelet Count 203 Results/Orders Lab Results Laboratory Tests Test 12/19/20 19:18 Range/Units White Blood Count 8.7 4.3-11.0 10^3/uL Red Blood Count 4.56 3.80-5.11 10^6/uL Hemoglobin 15.2 11.5-16.0 g/dL Hematocrit 46 35-52 % Mean Corpuscular Volume 100 H 80-99 fL Mean Corpuscular Hemoglobin 33 25-34 pg Mean Corpuscular Hemoglobin Concent 33 32-36 g/dL Red Cell Distribution Width 12.1 10.0-14.5 % Platelet Count 203 130-400 10^3/uL Mean Platelet Volume 10.7 9.0-12.2 fL Immature Granulocyte % (Auto) 1 % Neutrophils (%) (Auto) 74 42-75 % Lymphocytes (%) (Auto) 17 12-44 % Monocytes (%) (Auto) 7 0-12 % Eosinophils (%) (Auto) 1 0-10 % Basophils (%) (Auto) 1 0-10 % Neutrophils # (Auto) 6.5 1.8-7.8 10^3/uL Lymphocytes # (Auto) 1.5 1.0-4.0 10^3/uL Monocytes # (Auto) 0.6 0.0-1.0 10^3/uL Eosinophils # (Auto) 0.1 0.0-0.3 10^3/uL Basophils # (Auto) 0.1 0.0-0.1 10^3/uL Immature Granulocyte # (Auto) 0.0 0.0-0.1 10^3/uL Percent Immature Platelet Fraction 4.9 0.0-7.6 % Erythrocyte Sedimentation Rate 40 H 0-30 MM/HR Sodium Level 139 135-145 MMOL/L Potassium Level 4.3 3.6-5.0 MMOL/L Chloride Level 101 98-107 MMOL/L Carbon Dioxide Level 28 21-32 MMOL/L Anion Gap 10 5-14 MMOL/L Blood Urea Nitrogen 9 7-18 MG/DL Creatinine 0.73 0.60-1.30 MG/DL Estimat Glomerular Filtration Rate > 60 BUN/Creatinine Ratio 12 Glucose Level 141 H 70-105 MG/DL Calcium Level 9.4 8.5-10.1 MG/DL B-Type Natriuretic Peptide 45.2 <100.0 PG/ML My Orders Orders - ROSIE YOUNG APRN Ct Head Wo (12/19/20 19:12) Cbc With Automated Diff (12/19/20 19:12) Basic Metabolic Panel (12/19/20 19:12) Ekg Tracing (12/19/20 19:12) Erythrocyte Sedimentation Rate (12/19/20 19:12) BNP (12/19/20 19:15) Ketorolac Injection (Toradol Injection) (12/19/20 19:15) Prochlorperazine Injection (Compazine In (12/19/20 19:15) Diphenhydramine Injection (Benadryl Inje (12/19/20 19:15) Clonidine Tablet (Catapres Tablet) (12/19/20 19:15) Tetracaine 0.5% Ophth Lupe Sdv (Tetracai (12/19/20 20:30) Clonidine Tablet (Catapres Tablet) (12/19/20 20:45) Medications Given in ED Current Medications Medications Dose Ordered Sig/[place] Route Start Time Stop Time Status Last Admin Dose Admin Clonidine HCl 0.1 mg ONCE ONCE PO 12/19/20 19:15 12/19/20 19:17 DC 12/19/20 19:40 0.1 MG Diphenhydramine HCl 25 mg ONCE ONCE IVP 12/19/20 19:15 12/19/20 19:17 DC 12/19/20 19:41 25 MG Ketorolac Tromethamine 15 mg ONCE ONCE IVP 12/19/20 19:15 12/19/20 19:17 DC 12/19/20 19:28 15 MG Prochlorperazine Edisylate 5 mg ONCE ONCE IV 12/19/20 19:15 12/19/20 19:17 DC 12/19/20 19:41 5 MG Vital Signs/I&O 12/19/20 19:04 Temp 36.6 Pulse 89 Resp 18 B/P (MAP) 204/92 (129) Pulse Ox 95 O2 Delivery Room Air Capillary Refill : Departure Communication (Admissions) 2041-Left intraocular pressure 23 mmHg. Headache is now much improved. Blood pressure down to 177 systolic. We will discharge to home but give 1 additional clonidine before she leaves. NAME: MARIANA HARTMANN [facility] REC#: [id number] PT STATUS: REG ER : 1955 PHYSICIAN: ROSIE YOUNG APRN ADMIT DATE: 12/19/20/ER Draft Date of Exam:12/19/20 CT HEAD WO INDICATION: Headache. Numbness and tingling TECHNIQUE: Routine non contrast-enhanced axial images were obtained from the skull base to the vertex. Auto Exposure Controls were utilized during the CT exam to meet ALARA standards for radiation dose reduction COMPARISON: 12/02/2014 FINDINGS: The ventricles and cortical sulci are diffusely prominent, compatible with age-related volume loss. There are confluent areas of abnormal, low attenuation in the periventricular white matter. This is consistent with chronic small vessel ischemic changes. There is no midline shift or mass-effect. No acute intra-axial hemorrhage is seen. There are no abnormal areas of increased or decreased density to suggest acute hemorrhage or edema. No extra-axial masses or collections are present. The bony calvarium is intact. The visualized paranasal sinuses are unremarkable. The mastoid air cells are clear. IMPRESSION: 1. No acute intracranial abnormality. No CT evidence of mass, acute infarct or intracranial hemorrhage. 2. Chronic small vessel ischemic changes in the deep white matter. Dictated on workstation # [id number] Dict: 12/19/201937 Trans: 12/19/201942 [facility] [id number] Interpreted by: VINH PENNY MD Electronically signed by: Impression Primary Impression: Hypertension Additional Impression: Paroxysmal hemicrania Disposition: 01 HOME, SELF-CARE Condition: Stable Departure-Patient Inst. Decision time for Depature: 20:14 Referrals: [facility] (PCP/Family) Primary Care Physician Patient Instructions: Headache, Adult ED Add. Discharge Instructions: . Follow-up with your regular doctor this week for recheck. Return to ER for any concerns. Copy Copies To 1: NANCY SEGURA MD, PETER J APRN December 19, 2020 19:15
[2020-12-19 19:24] LABS: BASOPHILS # (AUTO) 0.1 10^3/uL (0.0-0.1); BASOPHILS % (AUTO) 1 % (0-10); HEMOGLOBIN 15.2 g/dL (11.5-16.0)
[2020-12-19 19:26] LABS: EOSINOPHILS # (AUTO) 0.1 10^3/uL (0.0-0.3); EOSINOPHILS % (AUTO) 1 % (0-10); HEMATOCRIT 46 % (35-52); LYMPHOCYTES # (AUTO) 1.5 10^3/uL (1.0-4.0); LYMPHOCYTES % (AUTO) 17 % (12-44); MEAN CORPUSCULAR HEMOGLOBIN 33 pg (25-34); MEAN CORPUSCULAR HGB CONC 33 g/dL (32-36); MEAN CORPUSCULAR VOLUME 100 fL (80-99); MEAN PLATELET VOLUME 10.7 fL (9.0-12.2); MONOCYTES # (AUTO) 0.6 10^3/uL (0.0-1.0); MONOCYTES % (AUTO) 7 % (0-12); NEUTROPHILS # (AUTO) 6.5 10^3/uL (1.8-7.8); NEUTROPHILS % (AUTO) 74 % (42-75); PLATELET COUNT 203 10^3/uL (130-400); WHITE BLOOD COUNT 8.7 10^3/uL (4.3-11.0)
--- NOTE | 2020-12-19 19:43 | Diagnostic Imaging Report ---
INDICATION: Headache. Numbness and tingling TECHNIQUE: Routine non contrast-enhanced axial images were obtained from the skull base to the vertex. Auto Exposure Controls were utilized during the CT exam to meet ALARA standards for radiation dose reduction COMPARISON: 12/02/2014 FINDINGS: The ventricles and cortical sulci are diffusely prominent, compatible with age-related volume loss. There are confluent areas of abnormal, low attenuation in the periventricular white matter. This is consistent with chronic small vessel ischemic changes. There is no midline shift or mass-effect. No acute intra-axial hemorrhage is seen. There are no abnormal areas of increased or decreased density to suggest acute hemorrhage or edema. No extra-axial masses or collections are present. The bony calvarium is intact. The visualized paranasal sinuses are unremarkable. The mastoid air cells are clear. IMPRESSION: 1. No acute intracranial abnormality. No CT evidence of mass, acute infarct or intracranial hemorrhage. 2. Chronic small vessel ischemic changes in the deep white matter. Dictated by: Dictated on workstation # [id number]
[2020-12-19 19:47] LABS: BUN/CREATININE RATIO 12; CALCIUM 9.4 MG/DL (8.5-10.1); CARBON DIOXIDE 28 MMOL/L (21-32); CHLORIDE 101 MMOL/L (98-107); CREATININE SERUM 0.73 MG/DL (0.60-1.30); GFR ESTIMATED > 60; GLUCOSE 141 MG/DL (70-105); POTASSIUM 4.3 MMOL/L (3.6-5.0); SODIUM 139 MMOL/L (135-145)
[2020-12-19 19:56] LABS: ERYTHROCYTE SEDIMENTATION RATE 40 MM/HR (0-30)
[2020-12-19] MEDS ORDERED: TETRACAINE 0.5% OPHTH SOLN 4 ML BTL (SINGLE DOSE ONLY) OP ONE (20:30)
[2020-12-19 20:55] VITALS: BP 171/71
== END 2020-12-19 20:55 | disposition home or self-care (01) ==
LOC: EDUNIT# 18:49 → ER 18:52
DX: G44.039 Episodic paroxysmal hemicrania, not intractable (principal); I10 Essential (primary) hypertension; J43.9 Emphysema, unspecified; E78.00 Pure hypercholesterolemia, unspecified; Z99.81 Dependence on supplemental oxygen; Z77.22 Contact with and (suspected) exposure to environmental tobacco smoke (acute) (chronic); Z98.890 Other specified postprocedural states; Z88.5 Allergy status to narcotic agent; Z79.899 Other long term (current) drug therapy
CPT/HCPCS: 36415; 70450; 80048; 83880; 85025; 85652; 93005

== ENCOUNTER → 2021-02-05 | Outpatient (CLI) | payer MEDICARE, MEDICAID ==
[2021-02-05 13:35] LABS: BUN/CREATININE RATIO 7; CALCIUM 9.4 MG/DL (8.5-10.1); CARBON DIOXIDE 25 MMOL/L (21-32); CHLORIDE 101 MMOL/L (98-107); CREATININE SERUM 0.74 MG/DL (0.60-1.30); GFR ESTIMATED > 60; GLUCOSE 211 MG/DL (70-105); MAGNESIUM 1.8 MG/DL (1.6-2.4); POTASSIUM 3.8 MMOL/L (3.6-5.0); SODIUM 137 MMOL/L (135-145)
== END ==
LOC: LAB 12:44
PROVIDERS: ATTEND Nurse Practitioner Family
DX: I10 Essential (primary) hypertension (principal)
CPT/HCPCS: 36415; 80048; 83735

== ENCOUNTER → 2021-06-04 | Outpatient (CLI) | payer MEDICARE, MEDICAID ==
--- NOTE | 2021-06-04 16:28 | Diagnostic Imaging Report ---
CT Lung Screening INDICATION:Current smoker 49 pack year history TECHNIQUE: Noncontrast, low-dose CT imaging performed according to the lung cancer screening protocol. Auto Exposure Controls were utilize during the CT exam to meet ALARA standards for radiation dose reduction. COMPARISON:06/01/2020 FINDINGS:No new suspicious or dominant lung mass. No findings of lung cancer. No evidence of pneumonia or edema. No thoracic adenopathy. The aorta is atherosclerotic but nonaneurysmal. No effusion or pneumothorax. No pleural or pericardial effusion. The upper abdomen reveals chronic fatty infiltration of the liver. IMPRESSION:No evidence of lung cancer or acute abnormalities. LUNG-RADS CATEGORY:Category 1 MODIFIER:None OTHER SIGNIFICANT FINDINGS:As above Dictated by: Dictated on workstation # [id number]
== END ==
LOC: RAD 14:45
PROVIDERS: ATTEND Nurse Practitioner Family
DX: Z12.2 Encounter for screening for malignant neoplasm of respiratory organs (principal); F17.210 Nicotine dependence, cigarettes, uncomplicated
CPT/HCPCS: 71271

== ENCOUNTER → 2022-02-12 | Outpatient (CLI) | payer MEDICARE, MEDICAID ==
[2022-02-12 13:06] LABS: WHITE BLOOD COUNT 6.8 10^3/uL (4.3-11.0)
[2022-02-12 13:07] LABS: BASOPHILS # (AUTO) 0.1 10^3/uL (0.0-0.1); BASOPHILS % (AUTO) 1 % (0-10); EOSINOPHILS # (AUTO) 0.1 10^3/uL (0.0-0.3); EOSINOPHILS % (AUTO) 1 % (0-10); HEMATOCRIT 45 % (35-52); HEMOGLOBIN 15.6 g/dL (11.5-16.0); LYMPHOCYTES # (AUTO) 1.6 10^3/uL (1.0-4.0); LYMPHOCYTES % (AUTO) 24 % (12-44); MEAN CORPUSCULAR HEMOGLOBIN 34 pg (25-34); MEAN CORPUSCULAR HGB CONC 35 g/dL (32-36); MEAN CORPUSCULAR VOLUME 98 fL (80-99); MEAN PLATELET VOLUME 10.3 fL (9.0-12.2); MONOCYTES # (AUTO) 0.6 10^3/uL (0.0-1.0); MONOCYTES % (AUTO) 9 % (0-12); NEUTROPHILS # (AUTO) 4.4 10^3/uL (1.8-7.8); NEUTROPHILS % (AUTO) 64 % (42-75); PLATELET COUNT 253 10^3/uL (130-400)
[2022-02-12 13:40] LABS: ALBUMIN 4.1 GM/DL (3.2-4.5); CALCIUM 9.4 MG/DL (8.5-10.1); CREATININE SERUM 0.74 MG/DL (0.60-1.30); POTASSIUM 3.6 MMOL/L (3.6-5.0); TOTAL PROTEIN 7.1 GM/DL (6.4-8.2)
[2022-02-12 14:01] LABS: FREE T4 (FREE THYROXINE) 1.05 NG/DL (0.70-1.48)
== END ==
LOC: LAB 12:36
PROVIDERS: ATTEND Physician Assistant
DX: J44.9 Chronic obstructive pulmonary disease, unspecified (principal); E78.00 Pure hypercholesterolemia, unspecified; E55.9 Vitamin D deficiency, unspecified
CPT/HCPCS: 36415; 80053; 80061; 82306; 84439; 84443; 85025

== ENCOUNTER → 2022-04-11 | Outpatient (CLI) | payer MEDICARE, MEDICAID ==
[~2022-04-11] MED LIST changes: +RT-ALBUTEROL SULF 2.5 MG/3 ML PRE-MIX VIAL INH ONE
== END ==
LOC: RT 13:47
PROVIDERS: ATTEND Nurse Practitioner Family
DX: J44.9 Chronic obstructive pulmonary disease, unspecified (principal)
CPT/HCPCS: 94060; 94726; 94729

== ENCOUNTER → 2022-04-16 | Outpatient (CLI) | payer MEDICARE, MEDICAID ==
[~2022-04-16] MED LIST changes: -RT-ALBUTEROL SULF 2.5 MG/3 ML PRE-MIX VIAL INH ONE
--- NOTE | 2022-04-16 16:49 | Diagnostic Imaging Report ---
PROCEDURE: MR imaging cervical spine without contrast. TECHNIQUE: Multiplanar, multisequence MR imaging of the cervical spine was performed without contrast. DATE: April 16, 2022. COMPARISON: MRI cervical spine July 12, 2019. INDICATION: 66-year-old female, neck pain and weakness of the upper extremities. FINDINGS: There is cervical spine fusion hardware spanning C4-C6. There is associated hardware related artifact. There is no evidence of a diffuse marrow infiltrating or replacing process. There is no identified focal concerning bone lesion. There is no identified abnormal signal in the imaged spinal cord. There is mild to moderate disc height loss at C2-C3. There is moderate disc height loss at C3-C4. C2-C3: There is a small posterior disc osteophyte complex. There are mild right uncovertebral degenerative changes. There is no foraminal narrowing. There is mild spinal canal stenosis. C3-C4: There is a posterior disc osteophyte complex. There are mild bilateral uncovertebral degenerative changes. There is moderate to severe right and moderate left foraminal narrowing. There is severe spinal canal stenosis. C4-C5: There is a posterior disc osteophyte complex. There are mild right uncovertebral degenerative changes. There is moderate right and mild left foraminal narrowing. There is severe spinal canal stenosis. C5-C6: There is a small posterior disc osteophyte complex. There are mild left uncovertebral degenerative changes. There is moderate to severe left and mild right foraminal narrowing. There is severe spinal canal stenosis. C6-C7: There is a small posterior disc aspect complexes. There are mild bilateral uncovertebral degenerative changes. There is mild bilateral foraminal narrowing. There is no high-grade spinal canal stenosis. C7-T1: There is no disc bulge. The uncovertebral and facet joints are unremarkable. There is no foraminal narrowing. There is no spinal canal stenosis. IMPRESSION: 1. Multilevel disc and uncovertebral degenerative changes of the cervical spine with multilevel high-grade spinal stenosis and foraminal narrowing as described in detail level by level above. 2. No abnormal cord signal. 3. Interval progression of arthritis and spinal stenosis since comparison MRI on July 12, 2019. Dictated by: Dictated on workstation # [id number]
== END ==
LOC: RAD 14:15
PROVIDERS: ATTEND Physician Assistant
DX: M47.812 Spondylosis without myelopathy or radiculopathy, cervical region (principal); M48.02 Spinal stenosis, cervical region; M25.78 Osteophyte, vertebrae
CPT/HCPCS: 72141

== ENCOUNTER → 2022-06-25 | Outpatient (CLI) | payer MEDICARE, MEDICAID ==
[~2022-06-25] VITALS: Ht 160 cm; Wt 60.0 kg
[~2022-06-25] MED LIST changes: +REGADENOSON 0.4 MG/5 ML SYR (LEXISCAN) IV ONE
[2022-06-25] MEDS: CATHETER FLUSH 10 ML SYR IVP PRN ×2 (11:18→13:10)
[2022-06-25 13:01] VITALS: BP 156/84
--- NOTE | 2022-06-26 21:22 | STRESS TEST ---
DATE OF SERVICE: 06/25/2022 RESTING AND POST REGADENOSON TECHNETIUM-99M TETROFOSMIN SPECT CT IMAGING ORDERING PHYSICIAN: Patito Ureña APRN PRIMARY PHYSICIAN: [facility]. CLINICAL DIAGNOSIS: Shortness of breath. Baseline images were carried out after injection of 8.67 mCi of technetium-99m tetrofosmin. This was followed by 0.4 mg regadenoson and 26.1 mCi of technetium-99m tetrofosmin for stress imaging. The electrocardiogram showed sinus rhythm at baseline. It did not change significantly with regadenoson infusion. The patient tolerated the procedure well. Review of images at rest and following stress does not indicate any significant perfusion defects consistent with myocardial ischemia or infarction. Gated images showed normal global left ventricular systolic function with normal regional wall motion. Left ventricular ejection fraction is calculated to be 86%. CONCLUSIONS: 1. No evidence of any significant myocardial ischemia or infarction on this study. 2. Normal regional wall motion. 3. Normal to hyperdynamic left ventricular systolic function with an ejection fraction 86%. Job ID: [id number] DocumentID: [id number] Dictated Date: 06/26/2022 12:37:27 Day Spa Manager Date: 06/26/2022 20:02:00 Dictated By: AYAKA PEREZ MD; ANN; FACP; FACC;
== END ==
LOC: CARD 11:30
PROVIDERS: ATTEND Nurse Practitioner Family
DX: R06.09 Other forms of dyspnea (principal); R06.02 Shortness of breath
CPT/HCPCS: 78452; 93017; A9502

== ENCOUNTER 2022-12-30 15:21 | Emergency (ER) | payer MEDICARE, MEDICAID ==
[~2022-12-30 15:21] MED LIST changes: +CLOP-31 PO; -CLOP75TA69 PO; -REGADENOSON 0.4 MG/5 ML SYR (LEXISCAN) IV ONE
[2022-12-30] MEDS ORDERED: NS IV 500 ML 500 ML IV STA (16:06)
--- NOTE | 2022-12-30 16:06 | ED GI ---
General Chief Complaint: Abdominal/GI Problems Stated Complaint: VOMITING Nursing Triage Note: PT HAD 4 DAYS OF CONSTIPATION LAST WEEK AND WAS PRESCRIBED STOOL SOFTENERS. THE LAST WEEK, PT HAS BEEN HAVING NORMAL FORMED BM'S. LAST NOC, PT DEVELOPED EPIGASTRIC ABDOMINAL PAIN AND VOMITING THAT PT DESCRIBES "LOOKING AND TASTING LIKE STOOL." Source of Information: Patient Exam Limitations: No Limitations History of Present Illness Date Seen by Provider: December 30, 2022 Time Seen by Provider: 15:57 Initial Comments 67-year-old female presents for emesis that she believes might be stool as well as epigastric pain. Last week she about 5 days of constipation. She saw her primary care doctor who prescribed her some stool softeners. She has had loose to formed stool since that time and was feeling otherwise better. 2 days ago she developed epigastric pain and started to have vomiting that looks in taste like stool according to her. She may have seen some flecks of blood in it as well. Epigastric pain is described as dull, gnawing type pain without radiation. No obvious aggravating or alleviating factors. She is not passing gas. Had no abdominal surgeries. All other systems reviewed and negative except documented per HPI. Voice recognition software was used to help create this chart Allergies and Home Medications Allergies Coded Allergies: codeine (Verified Allergy, Mild, HIVES, 03/03/19) Patient Home Medication List Home Medication List Reviewed: Yes Albuterol Sulfate (Proventil Hfa) 6.7 Gm Hfa.aer.ad, 2 PUFF IH Q4H PRN for SHORTNESS OF BREATH, (Reported) Entered as Reported by: DESI WARREN on 02/19/16 0931 Albuterol Sulfate (Albuterol Sulfate) 2.5 Mg/3 Ml Vial.neb, 2.5 MG IH EVERY 4-6 HOURS PRN for SHORTNESS OF BREATH, (Reported) Entered as Reported by: DESI WARREN on 02/19/16 1013 Amoxicillin (Amoxicillin) 500 Mg Capsule, 500 MG PO TID Prescribed by: ROSIE YOUNG on 01/08/20 211 Aspirin (Aspirin EC) 81 Mg Tablet.dr, 81 MG PO HS, (Reported) Entered as Reported by: DESI WARREN on 02/19/16 1006 Clopidogrel Bisulfate (Plavix) 75 Mg Tablet, 75 MG PO DAILY, (Reported) Entered as Reported by: UGO LAWTON on 03/09/19 0902 Fluticasone/Vilanterol (Breo Ellipta 100-25 Mcg INH) 1 Each Blst.w.dev, 1 EACH IH DAILY, (Reported) Entered as Reported by: KRYTSIN DEGROOT on 03/03/19 1024 Lisinopril (Lisinopril) 20 Mg Tablet, 20 MG PO DAILY, (Reported) Entered as Reported by: KRYSTIN DEGROOT on 03/03/19 1024 Lovastatin (Lovastatin) 40 Mg Tablet, 40 MG PO HS, (Reported) Entered as Reported by: KRYSTIN DEGROOT on 03/03/19 1024 Metoprolol Tartrate (Metoprolol Tartrate) 25 Mg Tablet, 25 MG PO BID, (Reported) Entered as Reported by: DESI WARREN on 02/19/16 0931 Tiotropium [place] (Spiriva Respimat 2.5MCG/ACTUATION) 4 Gm Mist.inhal, 2 PUFF IH DAILY, (Reported) Entered as Reported by: KRYSTIN DEGROOT on 03/03/19 1024 Review of Systems Review of Systems Constitutional: see HPI Past Jlojqkh-Sgdozr-Xtfvop Hx Patient Social History Tobacco Use?: Yes Tobacco type used: Cigarettes Smoking Status: Current Everyday Smoker Substance use?: No Alcohol Use?: No Pt feels they are or have been: No Immunizations Up To Date Tetanus Booster (TDap): More than 5yrs Influenza Vaccine Up-to-Date: Yes; Up-to-Date Seasonal Allergies Seasonal Allergies: Yes Past Medical History Surgeries: Yes (BACK SURGERIES, LEFT CAROTID) Appendectomy, Bladder Surgery, Gallbladder, Hysterectomy, Tonsillectomy Respiratory: Yes (2L NC AT NIGHT ) Sleep Apnea, COPD, Emphysema Currently Using CPAP: No Currently Using BIPAP: No Cardiac: Yes High Cholesterol, Hypertension Neurological: No 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 Disorders: Yes (PELVIC 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) 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 Sexually Transmitted Disease: No HIV/AIDS: No Genitourinary: No Gastrointestinal: Yes Chronic Diarrhea, Irritable Bowel Musculoskeletal: Yes (herniated disk in lower back) Back Injury, Chronic Back Pain Endocrine: No HEENT: Yes (GLASSES, DENTURES) Loss of Vision: Denies Hearing Impairment: Denies Cancer: No Psychosocial: Yes (no meds for it) Depression Integumentary: No Blood Disorders: No Adverse Reaction/Blood Tranf: No (N/A) Family Medical History Cardiovascular disease 19 FATHER 19 MOTHER Diabetes mellitus 19 FATHER 19 MOTHER Myocardial infarction 19 FATHER Heart Disease, Diabetes Physical Exam Vital Signs Vital Signs - First Documented 12/30/22 15:55 Pulse 105 Resp 18 B/P (MAP) 143/89 (107) Pulse Ox 93 O2 Delivery Room Air Capillary Refill : Height/Weight/BMI Height: 5'3.00" Weight: 153lbs. 6.0oz. 69.477824qu; 23.43 BMI Method:Stated General Appearance: WD/WN, no apparent distress HEENT: normal ENT inspection, pharynx normal Neck: non-tender, supple, normal inspection Respiratory: chest non-tender, lungs clear, normal breath sounds Cardiovascular: no murmur, tachycardia Gastrointestinal: normal bowel sounds, soft, tenderness (Diffuse abdominal tenderness that does appear to be worse in the epigastric region. Voluntary guarding without any rebound tenderness. No mass organomegaly. No skin changes.) Extremities: normal inspection, normal capillary refill Neurologic/Psychiatric: alert, oriented x 3 Skin: normal color, warm/dry Progress/Results/Core Measures Results/Orders Lab Results Laboratory Tests Test 12/30/22 16:00 Range/Units White Blood Count 9.5 4.3-11.0 10^3/uL Red Blood Count 4.05 3.80-5.11 10^6/uL Hemoglobin 14.0 11.5-16.0 g/dL Hematocrit 40 35-52 % Mean Corpuscular Volume 99 80-99 fL Mean Corpuscular Hemoglobin 35 H 25-34 pg Mean Corpuscular Hemoglobin Concent 35 32-36 g/dL Red Cell Distribution Width 12.7 10.0-14.5 % Platelet Count 332 130-400 10^3/uL Mean Platelet Volume 10.4 9.0-12.2 fL Immature Granulocyte % (Auto) 0 % Neutrophils (%) (Auto) 87 H 42-75 % Lymphocytes (%) (Auto) 6 L 12-44 % Monocytes (%) (Auto) 7 0-12 % Eosinophils (%) (Auto) 0 0-10 % Basophils (%) (Auto) 0 0-10 % Neutrophils # (Auto) 8.3 H 1.8-7.8 X 10^3 Lymphocytes # (Auto) 0.6 L 1.0-4.0 X 10^3 Monocytes # (Auto) 0.6 0.0-1.0 X 10^3 Eosinophils # (Auto) 0.0 0.0-0.3 10^3/uL Basophils # (Auto) 0.0 0.0-0.1 10^3/uL Immature Granulocyte # (Auto) 0.0 0.0-0.1 10^3/uL Sodium Level 132 L 135-145 MMOL/L Potassium Level 3.4 L 3.6-5.0 MMOL/L Chloride Level 91 L 98-107 MMOL/L Carbon Dioxide Level 27 21-32 MMOL/L Anion Gap 14 5-14 MMOL/L Blood Urea Nitrogen 9 7-18 MG/DL Creatinine 0.71 0.60-1.30 MG/DL Estimat Glomerular Filtration Rate 94 BUN/Creatinine Ratio 13 Glucose Level 309 H 70-105 MG/DL Calcium Level 9.4 8.5-10.1 MG/DL Corrected Calcium 9.6 8.5-10.1 MG/DL Total Bilirubin 0.6 0.1-1.0 MG/DL Aspartate Amino Transf (AST/SGOT) 22 5-34 U/L Alanine Aminotransferase (ALT/SGPT) 32 0-55 U/L Alkaline Phosphatase 108 40-136 U/L Total Protein 6.7 6.4-8.2 GM/DL Albumin 3.8 3.2-4.5 GM/DL Lipase 148 H 8-78 U/L My Orders Orders - TOMMIELILLY DO Comprehensive Metabolic Panel (12/30/22 16:03) Lipase (12/30/22 16:03) Ct Abdomen/Pelvis W (12/30/22 16:03) Cbc With Automated Diff (12/30/22 16:03) Iv/Invasive Line Insertion .IV INSERT (12/30/22 16:03) Ns Iv 500 Ml (Sodium Chloride 0.9%) (12/30/22 16:06) Iohexol Injection (Omnipaque 350 Mg/Ml 1 (12/30/22 16:45) Received Contrast (Hold Metformin- Contr (12/30/22 16:45) Ns (Ivpb) (Sodium Chloride 0.9% Ivpb Bag (12/30/22 16:45) Pantoprazole Injection (Protonix Injecti (12/30/22 17:15) Ng Tube Insert & Assessment (12/30/22 17:13) Midazolam Injection (Versed Injection) (12/30/22 17:45) Medications Given in ED Vital Signs/I&O 12/30/22 12/30/22 12/30/22 15:55 18:32 19:07 Pulse 105 111 109 Resp 18 22 18 B/P (MAP) 143/89 (107) 123/72 118/76 (90) Pulse Ox 93 94 93 O2 Delivery Room Air Room Air Room Air Blood Pressure Mean: 107 Departure Communication (Admissions) 1715: SPoke to Dr Boucher about CT findings. There is severe duodenitis with likely 2 fluid-filled masses in the pancreas, possible pancreatic head mass. He recommends NG tube and transfer to tertiary care center with hepatobiliary services. I spoke with the patient and she is agreeable to this. She is currently comfortable and not vomiting. We will go ahead but the NG tube in, ordered a small of IV Versed facilitate this. I am pending callback from [facility] for transfer. 1800: Patient accepted to [facility], Dr. Henry. She is transported without incident. Impression Primary Impression: Duodenitis Additional Impression: Pancreatic mass Disposition: XFER SHT-TRM HOSP Condition: Stable Departure-Patient Inst. Referrals: [facility] (PCP/Family) Primary Care Physician LILLY REILLY DO December 30, 2022 16:06
[2022-12-30 16:14] LABS: BASOPHILS % (AUTO) 0 % (0-10); EOSINOPHILS % (AUTO) 0 % (0-10); HEMATOCRIT 40 % (35-52); LYMPHOCYTES # (AUTO) 0.6 X 10^3 (1.0-4.0); LYMPHOCYTES % (AUTO) 6 % (12-44); MEAN CORPUSCULAR HEMOGLOBIN 35 pg (25-34); MEAN CORPUSCULAR HGB CONC 35 g/dL (32-36); MEAN CORPUSCULAR VOLUME 99 fL (80-99); MEAN PLATELET VOLUME 10.4 fL (9.0-12.2); MONOCYTES # (AUTO) 0.6 X 10^3 (0.0-1.0); MONOCYTES % (AUTO) 7 % (0-12); NEUTROPHILS # (AUTO) 8.3 X 10^3 (1.8-7.8); NEUTROPHILS % (AUTO) 87 % (42-75); PLATELET COUNT 332 10^3/uL (130-400); WHITE BLOOD COUNT 9.5 10^3/uL (4.3-11.0)
[2022-12-30 16:31] LABS: ALBUMIN 3.8 GM/DL (3.2-4.5); BILIRUBIN,TOTAL 0.6 MG/DL (0.1-1.0); CALCIUM 9.4 MG/DL (8.5-10.1); CREATININE SERUM 0.71 MG/DL (0.60-1.30); POTASSIUM 3.4 MMOL/L (3.6-5.0); TOTAL PROTEIN 6.7 GM/DL (6.4-8.2)
[2022-12-30] MEDS ORDERED: NS 100 ML (IVPB) BAG IV ONE (16:45)
[2022-12-30] MEDS ORDERED: HOLD METFORMIN - RECEIVED CONTRAST 20 ML VIAL IV SCH (16:45)
[2022-12-30] MEDS ORDERED: IOHEXOL 350 MG/ML 100 ML (OMNIPAQUE 350) VIAL IV ONE (16:45)
[2022-12-30] MEDS ORDERED: PANTOPRAZOLE 40 MG (PROTONIX) VIAL IV ONE (17:15)
--- NOTE | 2022-12-30 17:19 | Diagnostic Imaging Report ---
EXAMINATION: CT abdomen and pelvis with intravenous contrast. TECHNIQUE: Multiple contiguous axial images were obtained through the abdomen and pelvis after the uneventful administration of intravenous contrast. All CT scans use one or more of the following dose optimizing techniques: automated exposure control, MA and/or KvP adjustment based on patient size and exam type or iterative reconstruction. HISTORY: Abdominal pain, feculent emesis. COMPARISON: None available. FINDINGS: Limited views of the lower thorax are unremarkable. No suspicious liver lesion. There is small amount of subcapsular fluid associated with the inferior right liver. There is atrophy of the pancreas and ductal dilation with calcifications and low attenuation in the pancreatic head. The most discrete low-attenuating area measures 3.4 x 1.9 cm. There are two fluid collections in the pancreatic head measuring up to 2.3 x 1.5 cm. There is wall thickening of the second and third portions of the duodenum. The hepatic flexure of the colon is close to the inflammatory process but no direct evidence of fistulization is seen. There is no biliary ductal dilation. Gallbladder is absent. Spleen is normal. Adrenal glands are normal. The kidneys are normal. There is no hydronephrosis. Urinary bladder is normal. Bowel is normal in caliber without obstruction or inflammation. No free fluid or air. No abdominal or pelvic lymphadenopathy. Aorta is normal in caliber without aneurysm. There are no suspicious osseous lesions. IMPRESSION: 1. Marked inflammation centered in the head of the pancreas and duodenum with two fluid collections in the pancreatic head and areas of low attenuation within the parenchyma. Findings favored to represent pancreatitis though the differential includes peptic ulcer disease. An underlying mass is possible and follow-up imaging or endoscopic evaluation is recommended. 2. The hepatic flexure of the colon is close to the inflammatory process but there is no direct evidence of fistulization to the duodenum. Dictated by: Dictated on workstation # [id number]
[2022-12-30] MEDS ORDERED: MIDAZOLAM 2 MG/2 ML (VERSED) VIAL IVP ONE (17:45)
[2022-12-30 18:32] VITALS: BP 123/72
--- NOTE | 2022-12-30 19:27 | Diagnostic Imaging Report ---
INDICATION: 67-year-old female with sepsis. COMPARISONS: CT chest from 06/04/2021. FINDINGS: Single-view chest shows normal heart, pleura, and diaphragms. Background chronic parenchymal changes are seen. There is no consolidation, effusion or pneumothorax. There is an NG tube with the tip projected over the gastric body with the side-port just distal to the GE junction. Soft tissues and bony thorax are grossly unremarkable. IMPRESSION: 1. Senescent chest with COPD and chronic parenchymal changes but no evidence of acute cardiopulmonary disease. 2. NG tube is noted with the tip projected over the gastric body with side-port just distal to the GE junction. Dictated by: Dictated on workstation # [id number]
== END 2022-12-30 19:33 | disposition short-term general hospital (02) ==
LOC: EDUNIT# 15:21 → ER 15:21
DX: K29.80 Duodenitis without bleeding (principal); K86.89 Other specified diseases of pancreas; F17.210 Nicotine dependence, cigarettes, uncomplicated; J43.9 Emphysema, unspecified; Z99.81 Dependence on supplemental oxygen; Z90.49 Acquired absence of other specified parts of digestive tract
CPT/HCPCS: 36415; 71045; 74177; 80053; 83690; 85025

== ENCOUNTER → 2023-01-17 | Outpatient (CLI) | payer MEDICARE, MEDICAID ==
--- NOTE | 2023-01-17 18:17 | Diagnostic Imaging Report ---
Indication: Neck pain. Compared with exam 07/12/2019. Findings: Since the prior exam, laminectomies performed C4, C5, and C6. Lower cervical ACDF is present with the vertebral body screws in the C4 and C6 level. Prevertebral space unremarkable. The alignment normal. Impression: Interval surgical changes with stable alignment and no apparent complication or acute abnormality. No pathological motion at flexion or extension. We note that there is very little difference between the films with markedly limited mobility Dictated by: Dictated on workstation # [id number]
== END ==
LOC: RAD 15:39
DX: M54.2 Cervicalgia (principal); Z98.890 Other specified postprocedural states
CPT/HCPCS: 72050

== ENCOUNTER → 2023-04-09 | Outpatient (CLI) | payer MEDICARE, MEDICAID ==
--- NOTE | 2023-04-09 17:10 | Diagnostic Imaging Report ---
INDICATION: Neck surgery follow-up. FINDINGS: AP and lateral views of the cervical spine show postop changes from anterior cervical discectomy and fusion at C4-C5. Alignment appears normal. Hardware appears to be intact. There is no fracture or prevertebral soft tissue swelling. IMPRESSION: Postop changes at C4-C5, as noted. Patient has had laminectomies of C3-C6. Dictated by: Dictated on workstation # [id number]
== END ==
LOC: RAD 14:33
PROVIDERS: ATTEND Nurse Practitioner
DX: Z98.890 Other specified postprocedural states (principal)
CPT/HCPCS: 72050

== ENCOUNTER → 2023-04-09 | Outpatient (CLI) | payer MEDICARE, MEDICAID | LOC: RAD 14:32 | PROVIDERS: ATTEND Nurse Practitioner | DX: Z48.89 Encounter for other specified surgical aftercare (principal) ==